=== PATIENT | female | born 1960 | race Caucasian/White ===

== ENCOUNTER → 2022-02-22 09:00 | Outpatient (BNVA) | payer OTHER, SELFPAY | PROVIDERS: PCP Internal Medicine; Referring Provider Internal Medicine; Visit Provider Podiatrist Foot & Ankle Surgery | DX: M79.672 Pain in left foot (principal) | CPT/HCPCS: 73630 ==

== ENCOUNTER 2022-04-11 11:43 | Outpatient (CLI) | payer OTHER, SELFPAY ==
--- NOTE | 2022-04-11 11:57 | FL_ITS ---
WS: [id number] Modified barium swallow, 04/11/2022 Clinical Data: Other dysphagia Comparison: None. Fluoroscopy time: 2min [id number] # of spot films: Findings: The patient showed normal oral propulsion of all material. In the hypopharynx or sometimes 2 swallows needed to clear the material. There was no aspiration or penetration. There was delayed emptying of the distal esophagus. FL/FL barium swallow modifd [id number] Impression: 1. Normal modified barium swallow. 2. Slight delayed emptying of the distal esophagus.
== END 2022-04-11 11:44 | disposition home or self-care (01) ==
LOC: RAD 11:46
PROVIDERS: PCP Internal Medicine; Visit Provider Otolaryngology
DX: R13.10 Dysphagia, unspecified (principal)
CPT/HCPCS: 74230; 92611

== ENCOUNTER 2022-07-03 12:46 | Outpatient (RCR) | payer OTHER, SELFPAY | END 2022-07-12 23:59 | disposition home or self-care (01) | LOC: SST 12:46 | PROVIDERS: PCP Internal Medicine; Visit Provider Family Medicine | DX: R13.10 Dysphagia, unspecified (principal) | CPT/HCPCS: 92526; 92610 ==

== ENCOUNTER 2022-07-04 07:54 | Outpatient (CLI) | payer OTHER, SELFPAY ==
--- NOTE | 2022-07-04 08:00 | USCV_ITS ---
Terri Booth Age: 62 Gender: F : 1960 Exam Date: 07/04/2022 08:25 Ordering Phys: Ida Grullon Technologist: Sheron Wang Exam Location: [facility] [place] Indication: PSVT, BP: 120 / 74 HR: 54 Rhythm: Sinus Technical Quality: Adequate MEASUREMENTS (Male / Female) Normal Values 2D ECHO LV Diastolic Diameter PLAX 3.7 cm 4.2 - 5.9 / 3.9 - 5.3 cm LV Systolic Diameter PLAX 2.5 cm IVS Diastolic Thickness 1.0 cm 0.6 - 1.0 / 0.6 - 0.9 cm IVS Systolic Thickness 1.2 cm LVPW Diastolic Thickness 0.5 cm 0.6 - 1.0 / 0.6 - 0.9 cm LVPW Systolic Thickness 1.2 cm LV Ejection Fraction 2D Teich 60.7 % LV Ejection Fraction MOD 2C 63.6 % LV Ejection Fraction 2C AL 63.0 % LA Diameter 2.2 cm LA Width 2.0 cm LA Height 3.9 cm RA Width 2.9 cm RA Height 3.6 cm Aorta at Sinotubular Diameter 2.6 cm IVC Diameter 1.6 cm M-MODE MV E Point Septal Separation 0.3 cm DOPPLER AV Peak Velocity 87.0 cm/s LVOT Peak Velocity 87.0 cm/s MV Peak Velocity 123.0 cm/s MV Area PHT 5.0 cm squared Mitral E to A Ratio 1.1 MV E' Velocity 45.0 cm/s Mitral E to MV E' Ratio 8.0 Mitral E to LV E' Lateral Ratio 6.7 Mitral E to LV E' Septal Ratio 10.0 TR Peak Velocity 54.0 cm/s TR Peak Gradient 1.2 mmHg Right Atrial Pressure 3.0 mmHg Pulmonary Artery Systolic Pressu 4.2 mmHg PV Peak Velocity 48.0 cm/s RV Acceleration Time 0.1 s RV Ejection Time 0.3 s RV AcT/ET 0.4 FINDINGS Left Ventricle Normal left ventricular size, systolic function and wall thickness, with no regional wall motion abnormalities. Normal left ventricular wall thickness. Normal diastolic filling pattern. Right Ventricle The right ventricle is normal in size and function. Right Atrium The right atrium is normal in size. Left Atrium The left atrium is normal in size. Mitral Valve Structurally normal mitral valve without significant stenosis or prolapse. There is no mitral regurgitation. Aortic Valve Structurally normal aortic valve without significant sclerosis or stenosis. There is no aortic regurgitation. Tricuspid Valve Structurally normal tricuspid valve without significant stenosis or regurgitation. Pulmonary artery systolic pressure is normal. Pulmonic Valve Structurally normal pulmonic valve without significant stenosis. There is no pulmonic regurgitation. Pericardium Normal pericardium without effusion. Aorta Normal ascending aorta dimension. IVC The inferior vena cava pulmonary and hepatic veins appear normal. CONCLUSIONS Normal transthoracic echocardiogram. Dr. Trip Garcia MD (Electronically Signed) Final Date: 04 July 2022 10:16 S
== END 2022-07-04 07:55 | disposition home or self-care (01) ==
LOC: RAD 07:54
PROVIDERS: PCP Family Medicine; Visit Provider Nurse Practitioner Family
DX: I47.1 Supraventricular tachycardia (principal)
CPT/HCPCS: 93306

== ENCOUNTER 2022-07-26 09:18 | Outpatient (CLI) | payer OTHER, SELFPAY ==
--- NOTE | 2022-07-26 09:30 | MM_ITS ---
WS: [id number] BILATERAL SCREENING DIGITAL TOMOSYNTHESIS MAMMOGRAM WITH CAD HISTORY: SCREENING COMPARISON: 02/01/2021 and 04/01/2019 Bilateral CC and MLO views with tomosynthesis and synthetic mammography submitted. Computer aided det ection analyzed. Breast composition: The breasts are heterogeneously dense, which may obscure small masses. No suspici ous masses, microcalcifications or architectural distortion. Biopsy clip in the posterior medial LEFT breast. MM/[place] [id number] IMPRESSION: BI-RADS: 2-Benign FOLLOW UP: 1 Year Follow-up
== END 2022-07-26 09:19 | disposition home or self-care (01) ==
PROVIDERS: PCP Family Medicine; Visit Provider Family Medicine
DX: Z12.31 Encounter for screening mammogram for malignant neoplasm of breast (principal)
CPT/HCPCS: 77063; 77067

== ENCOUNTER 2022-08-12 06:00 | Outpatient (RCR) | payer OTHER, SELFPAY | END 2022-09-11 23:59 | disposition home or self-care (01) | LOC: SST 06:00 | PROVIDERS: PCP Family Medicine; Visit Provider Family Medicine | DX: R13.10 Dysphagia, unspecified (principal) | CPT/HCPCS: 92507 ==

== ENCOUNTER 2022-09-12 14:23 | Outpatient (RCR) | payer OTHER, SELFPAY | END 2022-10-11 23:59 | disposition home or self-care (01) | LOC: SST 14:23 | PROVIDERS: PCP Family Medicine; Visit Provider Family Medicine | DX: R13.10 Dysphagia, unspecified (principal) | CPT/HCPCS: 92526 ==

== ENCOUNTER 2023-03-19 14:16 | Outpatient (CLI) | payer OTHER, SELFPAY ==
--- NOTE | 2023-03-19 14:24 | MM_ITS ---
WS: [id number] LEFT 3D TOMOSYNTHESIS DIGITAL MAMMOGRAPHY WITH CAD CLINICAL INFORMATION: TENDERNESS HISTORY: LEFT breast pain COMPARISON: July 26, 2022 TECHNIQUE: 6 views of the left breast were obtained. FINDINGS: The left breast is composed of heterogeneous fibroglandular density tissue, which can limit the detec tion of small underlying mass lesions. No suspicious abnormalities in the areas of pain. Prior LEFT b reast biopsy clip. A few tiny incidental calcifications unchanged. Ultrasound LEFT breast described b elow ULTRASOUND BREAST LEFT TECHNIQUE: Ultrasound left breast focused area of concern. CLINICAL INFORMATION: TENDERNESS FINDINGS: Ultrasound LEFT breast 1:00 to 3:00 and 4-5:00. Normal underlying parenchymal tissue. No cystic or so lid lesions. No suspicious lesions to target for biopsy. Recommend return to annual screening mammogr aphy. MM/[place] [id number] IMPRESSION: BI-RADS: 2-Benign FOLLOW UP: 1 Year Follow-up Recommend return to annual screening mammography.
== END 2023-03-19 14:17 | disposition home or self-care (01) ==
LOC: RAD 14:17
PROVIDERS: PCP Family Medicine; Visit Provider Nurse Practitioner Family
DX: N64.4 Mastodynia (principal)
CPT/HCPCS: 76642; 77061; G0279

== ENCOUNTER 2023-12-05 11:20 | Outpatient (CLI) | payer OTHER, SELFPAY ==
--- NOTE | 2023-12-05 11:26 | MM_ITS ---
WS: [id number] BILATERAL 3D TOMOSYNTHESIS DIGITAL SCREENING MAMMOGRAPHY WITH CAD CLINICAL INFORMATION: SCREENING HISTORY: Screening mammogram. No current complaints. COMPARISON: 03/19/2023 and 07/26/2022 TECHNIQUE: Bilateral CC and MLO views. FINDINGS: Scattered fibroglandular densities bilaterally. No suspicious focal mass, asymmetry, calcifications, or architectural distortion. No evidence of malignancy. Biopsy clip LEFT breast. Clustered calcificat ions central RIGHT breast are unchanged since 2019. IMPRESSION: MM/[place] [id number] BI-RADS: 2-Benign FOLLOW UP: 1 Year Follow-up Recommend return to annual screening mammography.
== END 2023-12-05 11:21 | disposition home or self-care (01) ==
LOC: RAD 11:21
PROVIDERS: PCP Family Medicine; Visit Provider Family Medicine
DX: Z12.31 Encounter for screening mammogram for malignant neoplasm of breast (principal); R92.323 Mammographic fibroglandular density, bilateral breasts; R92.1 Mammographic calcification found on diagnostic imaging of breast
CPT/HCPCS: 77063; 77067

== ENCOUNTER → 2024-10-13 14:57 | Outpatient (BNVA) | payer OTHER, SELFPAY | PROVIDERS: PCP Family Medicine; Referring Provider Internal Medicine; Visit Provider Internal Medicine Cardiovascular Disease | DX: R07.9 Chest pain, unspecified (principal) | CPT/HCPCS: 93005 ==

== ENCOUNTER 2025-01-02 14:19 | Outpatient (CLI) | payer OTHER, SELFPAY ==
--- NOTE | 2025-01-02 14:22 | XR_ITS ---
WS: [id number] SCREENING DEXA SCAN [employer] CLINICAL INFORMATION: OSTEOPOROSIS COMPARISON: None. FINDINGS: The L1-L4 bone mineral density measures 0.843 g/cm2. This corresponds to a T score score of -2.8 and Z score of -0.9. Left femoral neck bone mineral density measures 0.681 g/cm2. This corresponds to a T score of -2.6 and Z score of -1.1. Right femoral neck bone mineral density measures 0.670 g/cm2. This corresponds to a T score -2.7of and Z score of -1.2. Mean femoral neck bone mineral density measures 0.676 g/cm2. This corresponds to a T score of -2.6 and Z score of -1.2. XR/XR DEXA axial skeleton* [id number] IMPRESSION: Osteoporosis lumbar spine. Osteoporosis femoral necks. Patient's FRAX calculated 10 year probability for major osteoporotic fracture i s three 21.6 % and osteoporotic hip fracture is 5.3%.
== END 2025-01-02 14:20 | disposition home or self-care (01) ==
LOC: RAD 14:20
PROVIDERS: PCP Family Medicine; Visit Provider Internal Medicine
DX: Z13.820 Encounter for screening for osteoporosis (principal); M81.0 Age-related osteoporosis without current pathological fracture
CPT/HCPCS: 77080

== ENCOUNTER 2025-01-06 12:42 | Outpatient (CLI) | payer OTHER, SELFPAY ==
--- NOTE | 2025-01-06 12:50 | XRR_ITS ---
PROCEDURE INFORMATION: Exam: XR Right Knee Exam date and time: 01/06/2025 12:57 PM Age: 64 years old Clinical indication: Chronic right medial knee pain, worsening in last 2-3 wks; Additional info: Right knee pain TECHNIQUE: Imaging protocol: Radiologic exam of the right knee. Views: 1 or 2 views. COMPARISON: No relevant prior studies available. FINDINGS: Bones/joints: Normal. Soft tissues: Normal. XR/XR knee RT 1-2V [id number] IMPRESSION: No acute findings.
== END 2025-01-06 12:43 | disposition home or self-care (01) ==
PROVIDERS: PCP Family Medicine; Visit Provider Internal Medicine
DX: M25.561 Pain in right knee (principal)
CPT/HCPCS: 73560

== ENCOUNTER 2025-02-17 12:23 | Outpatient (RCR) | payer MEDICARE, SELFPAY | END 2025-03-11 23:59 | disposition home or self-care (01) | LOC: SPT 12:23 | PROVIDERS: Visit Provider Internal Medicine | DX: M25.561 Pain in right knee (principal) | CPT/HCPCS: 97110; 97161 ==

== ENCOUNTER 2025-03-13 12:44 | Outpatient (CLI) | payer MEDICARE, SELFPAY ==
--- NOTE | 2025-03-13 12:45 | USCV_ITS ---
Terri Booth Age: 64 Gender: F : 1960 Exam Date: 03/13/2025 12:52 Ordering Phys: Min De La Paz M.D ([email or web address]) Technologist: John Jones Exam Location: [facility] [place] Indication: chest pain, sob BP: 112 / 60 HR: 56 Rhythm: Sinus Technical Quality: Adequate MEASUREMENTS (Male / Female) Normal Values 2D ECHO LV Diastolic Diameter PLAX 4.0 cm 4.2 - 5.9 / 3.9 - 5.3 cm IVS Diastolic Thickness 0.8 cm 0.6 - 1.0 / 0.6 - 0.9 cm IVS Systolic Thickness 1.4 cm LVPW Diastolic Thickness 0.6 cm 0.6 - 1.0 / 0.6 - 0.9 cm LVPW Systolic Thickness 1.0 cm LVOT Diameter 2.0 cm LV Ejection Fraction 2D Teich 63.5 % LV Ejection Fraction MOD 4C 62.0 % LV Ejection Fraction MOD 2C 73.6 % LV Ejection Fraction 2C AL 73.7 % LA Diameter 2.6 cm RA Systolic Volume 4C AL 21.1 ml RA Systolic Volume 4C MOD 19.6 ml LA Sys Volume AL 17.9 cm cubed LA Sys Volume Index AL 11.5 cm cubed/m squared Aorta at Sinotubular Diameter 2.3 cm IVC Diameter 1.5 cm M-MODE LA Ao Ratio MM 1.6 AV Cusp Separation MM 0.9 cm DOPPLER AV Peak Velocity 114.0 cm/s LVOT Peak Velocity 70.0 cm/s AV Area Cont Eq vti 1.5 cm squared AV Area Cont Eq pk 1.8 cm squared MV Peak Velocity 111.0 cm/s MV Area PHT 3.5 cm squared Mitral E to A Ratio 1.2 TR Peak Velocity 149.0 cm/s TR Peak Gradient 8.9 mmHg TV Peak E Velocity 91.0 cm/s PV Peak Velocity 88.0 cm/s FINDINGS Left Ventricle Left ventricle is normal in size. LV systolic function is normal with EF of 60-65%. No regional wall motion abnormalities. Right Ventricle Normal in size and function Right Atrium Normal in size Left Atrium Normal in size Mitral Valve Structurally normal mitral valve. Mild mitral regurgitation. Aortic Valve Structurally normal aortic valve. No significant stenosis or regurgitation. Tricuspid Valve Insufficient TR jet to calculate RVSP Pulmonic Valve Not well visualized Pericardium Normal Aorta Normal in size IVC Appears to be normal CONCLUSIONS LV systolic function is normal with EF of 60-65% Mild mitral regurgitation Compared to prior echcardiogram from 2021, no significant changes are seen Min De La Paz MD (Electronically Signed) Final Date: 19 Mar 2025 10:50 S
== END 2025-03-13 12:45 | disposition home or self-care (01) ==
PROVIDERS: PCP Internal Medicine; Visit Provider Internal Medicine
DX: R07.9 Chest pain, unspecified (principal); R06.02 Shortness of breath; I34.0 Nonrheumatic mitral (valve) insufficiency
CPT/HCPCS: 93306

== ENCOUNTER 2025-04-07 14:49 | Outpatient (CLI) | payer MEDICARE, SELFPAY | END 2025-04-07 14:50 | LOC: DERMACUTE 04-08 06:21 | PROVIDERS: PCP Internal Medicine; Visit Provider Nurse Practitioner Family | DX: L82.1 Other seborrheic keratosis (principal); D22.5 Melanocytic nevi of trunk; L57.8 Other skin changes due to chronic exposure to nonionizing radiation; L82.0 Inflamed seborrheic keratosis; L29.89 Other pruritus; L53.8 Other specified erythematous conditions; R20.8 Other disturbances of skin sensation; Z78.9 Other specified health status; D48.5 Neoplasm of uncertain behavior of skin | CPT/HCPCS: 11102; 17110; 99213 ==

== ENCOUNTER 2025-04-14 11:59 | Outpatient (CLI) | payer MEDICARE, SELFPAY ==
--- NOTE | 2025-04-14 12:04 | MR_ITS ---
WS: [id number] MRI RIGHT KNEE HISTORY: RIGHT MEDIAL KNEE PAIN COMPARISON: Radiograph 01/06/2025 Anterior cruciate ligament: Intact. Posterior cruciate ligament: Intact. Medial collateral ligament: Intact. Posterior lateral corner structures: Intact. Medial menisci: There is fluid along the superior aspect posterior horn medial meniscus. No meniscal tear identified. Lateral meniscus: Intact. Normal signal, size and shape. Extensor mechanism: Distal quadriceps tendon and patellar tendons are intact. Fluid and soft tissue: No joint effusion. Very small Gary's cyst. Osseous and articular structures: Patellofemoral compartment: Normal. Medial compartment: Mild narrowing of the medial compartment. Mild fissuring of the cartilage. No full-thickness defect or marrow edema. Lateral compartment: No significant narrowing. Cartilage is intact. MR/MR knee RT wo con* [id number] IMPRESSION: 1. No ACL tear. 2. Increased fluid along the superior aspect of the posterior horn medial meni scus towards the intercondylar notch. No tear identified within the meniscus. 3. Gary's cyst. 4. Mild narrowing of the medial compartment and fissuring of the cartilage.
== END 2025-04-14 12:00 | disposition home or self-care (01) ==
PROVIDERS: PCP Internal Medicine; Visit Provider Family Medicine
DX: M17.11 Unilateral primary osteoarthritis, right knee (principal); M71.21 Synovial cyst of popliteal space [Baker], right knee; R93.6 Abnormal findings on diagnostic imaging of limbs
CPT/HCPCS: 11102; 17110; 73721; 99213

== ENCOUNTER → 2025-04-20 14:08 | Outpatient (BNVA) | payer MEDICARE, SELFPAY | PROVIDERS: PCP Internal Medicine; Visit Provider Internal Medicine Cardiovascular Disease | DX: I47.10 Supraventricular tachycardia, unspecified (principal); R09.89 Other specified symptoms and signs involving the circulatory and respiratory systems; I34.0 Nonrheumatic mitral (valve) insufficiency; I10 Essential (primary) hypertension | CPT/HCPCS: 99214 ==

== ENCOUNTER 2025-04-24 16:18 | Outpatient (CLI) | payer MEDICARE, SELFPAY ==
--- NOTE | 2025-04-24 16:30 | USCV_ITS ---
Terri oBoth Age: 65 Gender: F : 1960 Exam Date: 04/24/2025 16:40 Ordering Phys: Melissa Brown MD ([email or web address]) Technologist: R Exam Location: [facility] [place] [facility] [place] Indication: bruit Risk Factors: Previous Vascular Surgery: Right Brachial BP: / Left Brachial BP: / Right Left Velocity (cm/s) Spectral Plaque Velocity (cm/s) Spectral Plaque Syst/Diast Broadening Syst/Diast Broadening 90.60/ 27.10 Prox CCA 76.70 / 26.50 79.30/ 29.10 Mid CCA 69.80 / 22.50 68.40/ 20.30 Distal CCA 71.00 / 26.20 100.80/30.10 Prox ICA 98.80 / 29.20 98.60/ 31.80 Mid ICA 111.10/ 33.60 122.90/37.70 None Distal ICA 101.40/ 40.50 69.10 Wilber ECA 77.90 1.50 ICA/CCA 1.40 Antegrade Vertebral Antegrade 56.20/ 15.80 cm/s 58.60/ 20.20 cm/s Tri Subclavian Bi 86.30 108.0 0 CONCLUSIONS Right ICA stenosis <50%. Mild atheromatous plaque right carotid bulb/ICA. Left ICA stenosis <50%. Mild atheromatous plaque left carotid bulb/ICA. Intimal thickening in the common carotid arteries and internal carotid arteries bilaterally. Normal antegrade Doppler flow noted in the right vertebral artery. Normal antegrade Doppler flow noted in the left vertebral artery. Donato Crump MD (Electronically Signed) Final Date: 24 April 2025 19:03 S
== END 2025-04-24 16:19 | disposition home or self-care (01) ==
LOC: RAD 16:19
PROVIDERS: PCP Internal Medicine; Visit Provider Internal Medicine Cardiovascular Disease
DX: I65.23 Occlusion and stenosis of bilateral carotid arteries (principal); R09.89 Other specified symptoms and signs involving the circulatory and respiratory systems
CPT/HCPCS: 93880

== ENCOUNTER → 2025-05-26 14:03 | Outpatient (BNVA) | payer MEDICARE, SELFPAY | PROVIDERS: PCP Family Medicine; Visit Provider Student in an Organized Health Care Education/Training Program | DX: M25.561 Pain in right knee (principal); M17.11 Unilateral primary osteoarthritis, right knee | CPT/HCPCS: 73560; 73565 ==

== ENCOUNTER 2025-05-26 15:37 | Outpatient (CLI) | payer MEDICARE, SELFPAY | END 2025-05-26 15:38 | disposition home or self-care (01) | LOC: SPT 15:38 | PROVIDERS: PCP Family Medicine; Visit Provider Student in an Organized Health Care Education/Training Program | DX: Z46.89 Encounter for fitting and adjustment of other specified devices (principal); M17.11 Unilateral primary osteoarthritis, right knee | CPT/HCPCS: L1851 ==

== ENCOUNTER 2025-07-15 14:34 | Outpatient (CLI) | payer MEDICARE, SELFPAY ==
--- NOTE | 2025-07-15 14:39 | MM_ITS ---
WS: [id number] BILATERAL 3D TOMOSYNTHESIS DIGITAL SCREENING MAMMOGRAPHY WITH CAD CLINICAL INFORMATION: SCREENING HISTORY: Screening mammogram. No current complaints. COMPARISON: 2023 TECHNIQUE: Bilateral CC and MLO views. FINDINGS: The breasts are composed of heterogeneous fibroglandular density tissue, which can limit the detection of small underlying mass lesions. No suspicious mass, asymmetry, calcifications, or architectural distortion. No evidence of malignancy. Biopsy clip LEFT breast. Stable clustered calcifications RIGHT breast. MM/MM [facility] tomosynthesis [id number] IMPRESSION: DENSITY: The breasts are heterogeneously dense, which may obscure small masses. BI-RADS: 2 - Benign FOLLOW UP: 1 Year Follow-up Recommend return to annual screening mammography.
== END 2025-07-15 14:35 | disposition home or self-care (01) ==
LOC: RAD 14:35
PROVIDERS: PCP Family Medicine; Visit Provider Family Medicine
DX: Z12.31 Encounter for screening mammogram for malignant neoplasm of breast (principal); R92.333 Mammographic heterogeneous density, bilateral breasts; R92.1 Mammographic calcification found on diagnostic imaging of breast; Z96.89 Presence of other specified functional implants
CPT/HCPCS: 77063; 77067

== ENCOUNTER 2025-07-17 08:30 | Outpatient (CLI) | payer MEDICARE, SELFPAY ==
--- NOTE | 2025-07-17 08:41 | MR_ITS ---
WS: [id number] MRI HEAD WITH CONTRAST TECHNIQUE: Sagittal T1, T2 axial, T2 axial FLAIR, axial susceptibility weighted imaging, axial diffusion weighted images, and coronal T2 images were obtained. Pre and post-T1 axial and post T1 coronal images. ADC and FSPGR images. CLINICAL INFORMATION: MIGRAINE W/O STATUS MIGRAINOSUS COMPARISON: None. FINDINGS: No evidence of restricted diffusion to suggest acute ischemia. Mild small vessel changes. Moderate parenchymal volume loss. No hemosiderin. Normal posterior fossa. Normal vascular flow voids at the skull base. No extra-axial fluid collections. No evidence of mass or mass effect. Paranasal sinuses and mastoid air cells are well aerated. Mild mucosal thickening in the ethmoid air cells. Normal posterior nasopharynx. Normal optic chiasm and pituitary infundibulum. Temporal lobes and hippocampal formations are normal in appearance. No abnormal gadolinium enhancement. MR/MR head wo/w con [id number] IMPRESSION: 1. No evidence of restricted diffusion to suggest acute ischemia. 2. Mild small vessel changes. Moderate parenchymal volume loss. 3. No hemosiderin. 4. No abnormal gadolinium enhancement. 5. No other acute findings.
[2025-07-17] MEDS: gadobenate dimeglumine 20 mL vial 10 ML IV (09:44)
== END 2025-07-17 08:31 | disposition home or self-care (01) ==
LOC: RAD 08:35
PROVIDERS: PCP Family Medicine; Visit Provider Family Medicine
DX: G43.009 Migraine without aura, not intractable, without status migrainosus (principal); G31.89 Other specified degenerative diseases of nervous system; I67.82 Cerebral ischemia; J34.89 Other specified disorders of nose and nasal sinuses
CPT/HCPCS: 70553

== ENCOUNTER 2025-09-23 17:39 | Observation (INO) | payer MEDICARE, SELFPAY ==
[2025-09-23] VITALS (10 sets, daily range): BP systolic 133–176; BP diastolic 40–82; PULSE 59–80; RESP 10–19; TEMP 36.3; O2SAT 97–100; BMI 23.7
--- NOTE | 2025-09-23 17:41 | ECG_ITS ---
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 Measurements Intervals [place] Rate: 64 P: 77 CT: 190 QRS: 80 QRSD: 87 T: 59 QT: 403 QTc: 418 Interpretive Statements SINUS RHYTHM NONSPECIFIC ST & T-WAVE ABNORMALITY Compared to ECG 10/13/2024 15:11:05 Sinus bradycardia no longer present T-wave abnormality still present Electronically Signed On 09-23-2025 20:01:00 CHIEF BUSINESS OFFICER by Arias Mcniar M.D. [email or web address]
--- NOTE | 2025-09-23 17:41 | XRR_ITS ---
PROCEDURE INFORMATION: Exam: XR Chest Exam date and time: 09/23/2025 5:58 PM Age: 65 years old Clinical indication: Pain; Chest pressure; Additional info: Chest pain TECHNIQUE: Imaging protocol: Radiologic exam of the chest. Views: 1 view. COMPARISON: No relevant prior studies available. FINDINGS: Lungs: No pulmonary consolidation. Mild pulmonary hyperinflation. Pleural spaces: No pleural effusion or pneumothorax. Heart/Mediastinum: Heart size is within normal limits. Bones/joints: No acute osseous abnormalities are seen. XR/XR chest 1V portable [id number] IMPRESSION: No acute cardiopulmonary disease.
--- OUTSIDE RECORDS SUMMARY | 2025-09-23 17:44 | XMS_ITS | Encounter Summary ---
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
--- OUTSIDE RECORDS SUMMARY | 2025-09-23 17:44 | XMS_ITS | Encounter Summary ---
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
--- OUTSIDE RECORDS SUMMARY | 2025-09-23 17:44 | XMS_ITS | Encounter Summary ---
Author Organization [employer] [facility] Address [address] [place] [address] Care Team Providers Care Application Development Intern Name Role Phone Carlee Rossi MD Primary Care Provid er Encounter Details Date Type Department Care Team (Late st Contact Info) Description 06/13/[address] 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
--- OUTSIDE RECORDS SUMMARY | 2025-09-23 17:44 | XMS_ITS | Encounter Summary ---
Author Organization [facility] Address [address] [place] [address] Care Team Providers Care Spectacle Truer Name Role Phone Carlee Rossi MD Primary Care Provid er Encounter Details Date Type Department Care Team (Latest Contact Info) Description 07/26/2005 Outpatient Historical [facility] [address] [place] [id number] Jesús Oneal MD NO ADDRESS ON FILE PREOP EXAM OTHER SPECIFIED (Primary Dx) Social History Tobacco Use Types Packs/Day Years Used Date Smoking Tobacco: Never Assessed Comments Unknown Sex and Gender Information Value Date Recorded Sex Assigned at Not on file 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 Gender Identity Not on file Sexual Orientation Not on file documented as of this encounter Plan of Treatment Not on file documented as of this encounter Procedures Procedure Name Priority Date/Time Associated Diagnosis Comments CBC WITHOUT DIFFERENTIAL Routine 07/26/2005 12:59 PM CDT documented in this encounter Results * (ABNORMAL) CBC WITHOUT DIFFERENTIAL (07/26/2005 12:59 PM CDT) WBC 5.5 4.5 - 11.0 K/ul INTERFACE SYSTEM RBC 4.01(L) 4.20 - 5.40 Mil/ul INTERFACE SYSTEM HEMOGLOBIN 11.5(L) 12.0 - 16.0 g/dL INTERFACE SYSTEM HEMATOCRIT 35.5(L) 36.0 - 46.0 % INTERFACE SYSTEM MCV 88.5 84.0 - 103.0 Fl INTERFACE SYSTEM MCH 28.7 27.0 - 34.0 pg INTERFACE SYSTEM MCHC 32.4 30.0 - 35.0 g/dL INTERFACE SYSTEM RDW 12.7 11.0 - 14.5 % INTERFACE SYSTEM PLATELETS 286 140 - 440 K/ul INTERFACE SYSTEM MPV 10.8 8.9 - 12.8 Fl INTERFACE SYSTEM NEUTROPHILS 67.1 42.2 - 75.2 % INTERFACE SYSTEM LYMPHOCYTES 25.5 24.0 - 44.0 % INTERFACE SYSTEM MONOCYTES 5.5 2.0 - 10.0 % INTERFACE SYSTEM EOSINOPHILS 1.5 0.0 - 7.0 % INTERFACE SYSTEM BASOPHILS 0.2 0.0 - 1.0 % INTERFACE SYSTEM NEUTROPHIL ABSOLUTE 3.7 2.0 - 8.0 K/uL INTERFACE SYSTEM LYMPHOCYTE ABSOLUTE 1.4 1.2 - 4.0 K/ul INTERFACE SYSTEM MONOCYTE ABSOLUTE 0.3 0.1 - 0.6 K/ul INTERFACE SYSTEM EOSINOPHIL ABSOLUTE 0.1 0.0 - 0.7 K/ul INTERFACE SYSTEM BASOPHILS ABSOLUTE 0.0 0.0 - 0.2 K/ul INTERFACE SYSTEM 07/26/2005 12:5 9 PM CDT us Jesús Oneal MD HEMATOLOGY ORDERABLES Final Re sult INTERFACE SYSTEM Refer to clinic/hospital department documented in this encounter Visit Diagnoses Diagnosis Other specified pre-operative examination- Primary documented in this encounter Care Teams Spectacle Truer Relationship Specialty Start Date End Date Carlee Rossi MD PCP - General 11/17/05 documented as of this encounter
--- OUTSIDE RECORDS SUMMARY | 2025-09-23 17:44 | XMS_ITS | Encounter Summary ---
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
--- OUTSIDE RECORDS SUMMARY | 2025-09-23 17:44 | XMS_ITS | Encounter Summary ---
Author Organization [employer] 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
--- OUTSIDE RECORDS SUMMARY | 2025-09-23 17:44 | XMS_ITS | Encounter Summary ---
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
--- OUTSIDE RECORDS SUMMARY | 2025-09-23 17:44 | XMS_ITS | Encounter Summary ---
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
--- OUTSIDE RECORDS SUMMARY | 2025-09-23 17:44 | XMS_ITS | Encounter Summary ---
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
--- OUTSIDE RECORDS SUMMARY | 2025-09-23 17:44 | XMS_ITS | Encounter Summary ---
Author Organization [facility] Address [address] [place] [address] Care Team Providers Care Mold Builder Name Role Phone Carlee Rossi MD Primary Care Provid er Encounter Details Date Type Department Care Team (Latest Contact Info) Description 07/07/2005 Outpatient Historical [facility] Neurology [address], [address] [place] [address] Wyatt Diaz MD NO ADDRESS ON FILE MEMORY LOSS (Primary Dx) Social History Tobacco Use Types Packs/Day Years Used Date Smoking Tobacco: Never Assessed Comments Unknown Sex and Gender Information Value Date Recorded Sex Assigned at Not on file 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
--- OUTSIDE RECORDS SUMMARY | 2025-09-23 17:44 | XMS_ITS | Encounter Summary ---
Author Organization [facility] Address [address] [place] [address] Care Team Providers Care Performance Improvement Analyst Name Role Phone Carlee Rossi MD Primary Care Provid er Encounter Details Date Type Department Care Team (Latest Contact Info) Description 07/05/2005 Outpatient Historical [facility] Internal Medicine- [place] [address] [place] [phone] Carlee Rossi MD [address] [place] [address] CRAMP IN LIMB (Primary Dx); PALPITATIONS; URTICARIA NOS Social History Tobacco Use Types Packs/Day Years Used Date Smoking Tobacco: Never Assessed Comments Unknown Sex and Gender Information Value Date Recorded Sex Assigned at Not on file 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
--- OUTSIDE RECORDS SUMMARY | 2025-09-23 17:44 | XMS_ITS | Encounter Summary ---
Author Organization [facility] Address [address] [place] [address] Care Team Providers Care Sock Knitter Name Role Phone Carlee Rossi MD Primary Care Provid er Encounter Details Date Type Department Care Team (Latest Contact Info) Description 08/28/2006 Outpatient Historical [facility] Orthopedics- 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
--- OUTSIDE RECORDS SUMMARY | 2025-09-23 17:44 | XMS_ITS | Encounter Summary ---
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
--- OUTSIDE RECORDS SUMMARY | 2025-09-23 17:44 | XMS_ITS | Encounter Summary ---
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
--- OUTSIDE RECORDS SUMMARY | 2025-09-23 17:44 | XMS_ITS | Encounter Summary ---
Author Organization [facility] Address [address] [place] [address] Care Team Providers Care Service Counselor Name Role Phone Carlee Rossi MD Primary Care Provid er Encounter Details Date Type Department Care Team (Late st Contact Info) Description 09/17/2006 Outpatient Historical [facility] [address] [address] Sheron Navarrete MD NO ADDRESS ON FILE Other Screening Mammogram (Primary Dx) Social History Tobacco Use Types Packs/Day Years Used Date Smoking Tobacco: Never Assessed Comments Unknown Sex and Gender Information Value Date Recorded Sex Assigned at Not on file 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
--- OUTSIDE RECORDS SUMMARY | 2025-09-23 17:44 | XMS_ITS | Encounter Summary ---
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
--- OUTSIDE RECORDS SUMMARY | 2025-09-23 17:44 | XMS_ITS | Encounter Summary ---
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
--- OUTSIDE RECORDS SUMMARY | 2025-09-23 17:44 | XMS_ITS | Encounter Summary ---
Author Organization [employer] [facility] Address [address] [place] [address] Care Team Providers Care Sql Bi Developer Name Role Phone Carlee Rossi MD Primary Care Provid er Encounter Details Date Type Department Care Team (Latest Contact Info) Description 09/17/2006 Outpatient [facility] Breast Center [facility] [address] [place] [address] Carlee Rossi MD [address] [place] [address] Other Screening Mammogram (Primary Dx) Social History Tobacco Use Types Packs/Day Years Used Date Smoking Tobacco: Never Assessed Comments Unknown Sex and Gender Information Value Date Recorded Sex Assigned at Not on file 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
--- OUTSIDE RECORDS SUMMARY | 2025-09-23 17:44 | XMS_ITS | Encounter Summary ---
Author Organization [facility] Address [address] [place] [address] Care Team Providers Care Top Icer Name Role Phone Carlee Rossi MD Primary Care Provid er Encounter Details Date Type Department Care Team (Latest Contact Info) Description 08/01/2005 Outpatient Historical [facility] Operating [address] [place] [phone] Jesús Oneal MD NO ADDRESS ON FILE ADHESIVE CAPSULIT SHLDER (Primary Dx) Social History Tobacco Use Types Packs/Day Years Used Date Smoking Tobacco: Never Assessed Comments Unknown Sex and Gender Information Value Date Recorded Sex Assigned at Not on file 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
--- OUTSIDE RECORDS SUMMARY | 2025-09-23 17:44 | XMS_ITS | Encounter Summary ---
Author Organization [facility] Address [address] [place] [address] Care Team Providers Care Mds Manager Name Role Phone Carlee Rossi MD Primary Care Provid er Encounter Details Date Type Department Care Team (Latest Contact Info) Description 07/07/2005 Outpatient Historical [facility] [place] [address] [place] [address] Carlee Rossi MD [address] [place] [address] SCREENING MAMM-MAILG NEOPL NEC (Primary Dx) Social History Tobacco Use Types Packs/Day Years Used Date Smoking Tobacco: Never Assessed Comments Unknown Sex and Gender Information Value Date Recorded Sex Assigned at Not on file 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
--- OUTSIDE RECORDS SUMMARY | 2025-09-23 17:44 | XMS_ITS | Encounter Summary ---
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
--- OUTSIDE RECORDS SUMMARY | 2025-09-23 17:44 | XMS_ITS | Encounter Summary ---
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
--- OUTSIDE RECORDS SUMMARY | 2025-09-23 17:44 | XMS_ITS | Encounter Summary ---
Author Organization [facility] Address [address] [place] [address] Care Team Providers Care Fretted String Instrument Repairer Name Role Phone Carlee Rossi MD Primary Care Provid er Encounter Details Date Type Department Care Team (Late st Contact Info) Description 09/26/2006 Outpatient Historical [facility] Physical Therapy [address] [place] [phone] Jesús Oneal MD NO ADDRESS ON FILE Social History Tobacco Use Types Packs/Day Years Used Date Smoking Tobacco: Never Assessed Comments Unknown Sex and Gender Information Value Date Recorded Sex Assigned at Not on file 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
--- OUTSIDE RECORDS SUMMARY | 2025-09-23 17:44 | XMS_ITS | Encounter Summary ---
Author Organization [facility] Address [address] [place] [address] Care Team Providers Care Lockstitch Topstitcher Name Role Phone Carlee Rossi MD Primary Care Provid er Encounter Details Date Type Department Care Team (Latest Contact Info) Description 06/13/[address] 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
--- OUTSIDE RECORDS SUMMARY | 2025-09-23 17:44 | XMS_ITS | Encounter Summary ---
Author Organization [facility] Address [address] [place] [address] Care Team Providers Care Signal Apprentice Name Role Phone Carlee Rossi MD Primary Care Provid er Encounter Details Date Type Department Care Team (Latest Contact Info) Description 07/14/2005 Outpatient Historical [facility] Physical Therapy [address] [place] [address] [place] [phone] Jesús Oneal MD NO ADDRESS ON FILE ADHESIVE CAPSULIT SHLDER (Primary Dx) Social History Tobacco Use Types Packs/Day Years Used Date Smoking Tobacco: Never Assessed Comments Unknown Sex and Gender Information Value Date Recorded Sex Assigned at Not on file 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
--- OUTSIDE RECORDS SUMMARY | 2025-09-23 17:44 | XMS_ITS | Encounter Summary ---
Author Organization [employer] 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
--- OUTSIDE RECORDS SUMMARY | 2025-09-23 17:44 | XMS_ITS | Encounter Summary ---
Author Organization [facility] Address [address] Attn: Epic Prelude ADT [place] [address] Care Team Providers Care Motion Graphics Artist Name Role Phone Carlee Rossi MD Primary Care Provid er Encounter Details Date Type Department Care Team (Late st Contact Info) Description 06/13/2005 Outpatient Historical Wyatt Diaz MD NO ADDRESS ON FILE CONVULSIONS, OTHER (CMS/HCC) (Primary Dx) Social History Tobacco Use Types Packs/Day Years Used Date Smoking Tobacco: Never Assessed Comments Unknown Sex and Gender Information Value Date Recorded Sex Assigned at Not on file Legal Sex Female 3:43 AM DIRECTOR SEARCH Gender Identity Not on file Sexual Orientation Not on file documented as of this encounter Plan of Treatment Not on file documented as of this encounter Visit Diagnoses Diagnosis Other convulsions- Primary documented in this encounter Care Teams Motion Graphics Artist Relationship Specialty Start Date End Date Carlee Rossi MD PCP - General 11/17/05 documented as of this encounter
--- OUTSIDE RECORDS SUMMARY | 2025-09-23 17:44 | XMS_ITS | Encounter Summary ---
Author Organization [facility] Address [address] [place] [address] Care Team Providers Care Senior Project Architect Name Role Phone Carlee Rossi MD Primary Care Provid er Encounter Details Date Type Department Care Team (Latest Contact Info) Description 06/16/2005 Outpatient Historical [facility] Internal Medicine- [place] [address] [place] [address] Carlee Rossi MD [address] [place] [address] ABNORMAL FIND-BODY STRUCT NEC (Primary Dx); CONVULSIONS, OTHER (CMS/HCC); VOICE DISTURBANCE NEC; Adhesive capsulit shlder Social History Tobacco Use Types Packs/Day Years Used Date Smoking Tobacco: Never Assessed Comments Unknown Sex and Gender Information Value Date Recorded Sex Assigned at Not on file Legal Sex Female 3:43 AM NUT CRACKER Gender Identity Not on file Sexual Orientation Not on file documented as of this encounter Plan of Treatment Not on file documented as of this encounter Visit Diagnoses Diagnosis Nonspecific abnormal findings on radiological and other examination of other site of body- Primary Other convulsions Other voice and resonance disorders Adhesive capsulit shlder Adhesive capsulitis of shoulder documented in this encounter Care Teams Senior Project Architect Relationship Specialty Start Date End Date Carlee Rossi MD PCP - General 11/17/05 documented as of this encounter
--- OUTSIDE RECORDS SUMMARY | 2025-09-23 17:44 | XMS_ITS | Encounter Summary ---
Author Organization [employer] [facility] Address [address] [place] [address] Care Team Providers Care Leather Colorer Name Role Phone Carlee Rossi MD Primary Care Provid er Encounter Details Date Type Department Care Team (Late st Contact Info) Description 06/13/2005 Outpatient Historical [facility] Social History Tobacco Use Types Packs/Day Years Used Date Smoking Tobacco: Never Assessed Comments Unknown Sex and Gender Information Value Date Recorded Sex Assigned at Not on file Legal Sex Female 3:43 AM TEST PILOT Gender Identity Not on file Sexual Orientation Not on file documented as of this encounter Plan of Treatment Not on file documented as of this encounter Visit Diagnoses Not on filedocumented in this encounter Care Teams Leather Colorer Relationship Specialty Start Date End Date Carlee Rossi MD PCP - General 11/17/05 documented as of this encounter
--- OUTSIDE RECORDS SUMMARY | 2025-09-23 17:44 | XMS_ITS | Encounter Summary ---
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
--- OUTSIDE RECORDS SUMMARY | 2025-09-23 17:44 | XMS_ITS | Encounter Summary ---
Author Organization [facility] Address [address] [place] [address] Care Team Providers Care Brimming Machine Operator Name Role Phone Carlee Rossi MD Primary Care Provid er Encounter Details Date Type Department Care Team (Latest Contact Info) Description 07/24/2006 Outpatient Historical [facility] Orthopedics- [address] [place] [address] Jesús Oneal MD NO ADDRESS ON FILE Other Affections of Shoulder Region, not Elsewhere Classified (Primary Dx); Loc Osteoarth NOS-Shlder Social History Tobacco Use Types Packs/Day Years Used Date Smoking Tobacco: Never Assessed Comments Unknown Sex and Gender Information Value Date Recorded Sex Assigned at Not on file Legal Sex Female 3:43 AM EQUIPMENT OR MACHINERY CLEANER Gender Identity Not on file Sexual Orientation Not on file documented as of this encounter Plan of Treatment Not on file documented as of this encounter Visit Diagnoses Diagnosis Other affections of shoulder region, not elsewhere classified- Primary Localized osteoarthrosis not specified whether primary or secondary, shoulder region documented in this encounter Care Teams Brimming Machine Operator Relationship Specialty Start Date End Date Carlee Rossi MD PCP - General 11/17/05 documented as of this encounter
--- OUTSIDE RECORDS SUMMARY | 2025-09-23 17:44 | XMS_ITS | Encounter Summary ---
Author Organization [facility] Address [address] [place] [address] Care Team Providers Care Electrogalvanizing Machine Operator Name Role Phone Carlee Rossi MD Primary Care Provid er Encounter Details Date Type Department Care Team (Late st Contact Info) Description 08/26/2006 Outpatient Historical [facility] Physical Therapy [address] [place] [phone] Jesús Oneal MD NO ADDRESS ON FILE Social History Tobacco Use Types Packs/Day Years Used Date Smoking Tobacco: Never Assessed Comments Unknown Sex and Gender Information Value Date Recorded Sex Assigned at Not on file Legal Sex Female 3:43 AM MENTAL HEALTH AIDE Gender Identity Not on file Sexual Orientation Not on file documented as of this encounter Plan of Treatment Not on file documented as of this encounter Visit Diagnoses Not on filedocumented in this encounter Care Teams Electrogalvanizing Machine Operator Relationship Specialty Start Date End Date Carlee Rossi MD PCP - General 11/17/05 documented as of this encounter
--- OUTSIDE RECORDS SUMMARY | 2025-09-23 17:44 | XMS_ITS | Encounter Summary ---
Author Organization [facility] Address [address] [place] [address] Care Team Providers Care Product Development Coordinator Name Role Phone Carlee Rossi MD Primary Care Provid er Encounter Details Date Type Department Care Team (Latest Contact Info) Description 05/31/2005 Outpatient Historical [facility] Imaging Services-[facility] [place] [address] [place] [address] Norma Eddy MD [address] [place] [address] VOICE DISTURBANCE NEC (Primary Dx) Social History Tobacco Use Types Packs/Day Years Used Date Smoking Tobacco: Never Assessed Comments Unknown Sex and Gender Information Value Date Recorded Sex Assigned at Not on file Legal Sex Female 3:43 AM CARPENTER APPRENTICE Gender Identity Not on file Sexual Orientation Not on file documented as of this encounter Plan of Treatment Not on file documented as of this encounter Visit Diagnoses Diagnosis Other voice and resonance disorders- Primary documented in this encounter Care Teams Product Development Coordinator Relationship Specialty Start Date End Date Carlee Rossi MD PCP - General 11/17/05 documented as of this encounter
--- OUTSIDE RECORDS SUMMARY | 2025-09-23 17:44 | XMS_ITS | Encounter Summary ---
Author Organization [employer] Address [address] [place] [address] Care Team Providers Care Indirect Sales Exec Name Role Phone Carlee Rossi MD Primary Care Provid er Encounter Details Date Type Department Care Team (Late st Contact Info) Description 06/14/2005 Outpatient Historical [facility] Social History Tobacco Use Types Packs/Day Years Used Date Smoking Tobacco: Never Assessed Comments Unknown Sex and Gender Information Value Date Recorded Sex Assigned at Not on file Legal Sex Female 3:43 AM POLICE OR PATROL PARK OFFICER Gender Identity Not on file Sexual Orientation Not on file documented as of this encounter Plan of Treatment Not on file documented as of this encounter Visit Diagnoses Not on filedocumented in this encounter Care Teams Indirect Sales Exec Relationship Specialty Start Date End Date Carlee Rossi MD PCP - General 11/17/05 documented as of this encounter
--- OUTSIDE RECORDS SUMMARY | 2025-09-23 17:44 | XMS_ITS | Encounter Summary ---
Author Organization [facility] Address [address] [place] [address] Care Team Providers Care Forge Shop Supervisor Name Role Phone Carlee Rossi MD Primary Care Provid er Encounter Details Date Type Department Care Team (Latest Contact Info) Description 07/05/2005 Outpatient Historical [facility] Orthopedics- [address] [place] [address] Jesús Oneal MD NO ADDRESS ON FILE Adhesive capsulit shlder (Primary Dx) Social History Tobacco Use Types Packs/Day Years Used Date Smoking Tobacco: Never Assessed Comments Unknown Sex and Gender Information Value Date Recorded Sex Assigned at Not on file Legal Sex Female 3:43 AM AIRFREIGHT OPERATIONS AGENT Gender Identity Not on file Sexual Orientation Not on file documented as of this encounter Plan of Treatment Not on file documented as of this encounter Visit Diagnoses Diagnosis Adhesive capsulit shlder- Primary Adhesive capsulitis of shoulder documented in this encounter Care Teams Forge Shop Supervisor Relationship Specialty Start Date End Date Carlee Rossi MD PCP - General 11/17/05 documented as of this encounter
--- OUTSIDE RECORDS SUMMARY | 2025-09-23 17:44 | XMS_ITS | Encounter Summary ---
Author Organization [employer] [facility] Address [address] [place] [address] Care Team Providers Care Bowling Ball Grader And Marker Name Role Phone Carlee Rossi MD Primary Care Provid er Encounter Details Date Type Department Care Team (Late st Contact Info) Description 08/02/2005 Outpatient Historical [facility] Social History Tobacco Use Types Packs/Day Years Used Date Smoking Tobacco: Never Assessed Comments Unknown Sex and Gender Information Value Date Recorded Sex Assigned at Not on file Legal Sex Female 3:43 AM NOVELTY PRINTING MACHINE OPERATOR Gender Identity Not on file Sexual Orientation Not on file documented as of this encounter Plan of Treatment Not on file documented as of this encounter Visit Diagnoses Not on filedocumented in this encounter Care Teams Bowling Ball Grader And Marker Relationship Specialty Start Date End Date Carlee Rossi MD PCP - General 11/17/05 documented as of this encounter
--- OUTSIDE RECORDS SUMMARY | 2025-09-23 17:44 | XMS_ITS | Encounter Summary ---
Author Organization [employer] [facility] Address [address] [place] [address] Care Team Providers Care Hotbed Operator Name Role Phone Carlee Rossi MD Primary Care Provid er Encounter Details Date Type Department Care Team (Late st Contact Info) Description 07/20/2006 Outpatient Historical [facility] Social History Tobacco Use Types Packs/Day Years Used Date Smoking Tobacco: Never Assessed Comments Unknown Sex and Gender Information Value Date Recorded Sex Assigned at Not on file Legal Sex Female 3:43 AM FOAMITE MIXER Gender Identity Not on file Sexual Orientation Not on file documented as of this encounter Plan of Treatment Not on file documented as of this encounter Visit Diagnoses Not on filedocumented in this encounter Care Teams Hotbed Operator Relationship Specialty Start Date End Date Carlee Rossi MD PCP - General 11/17/05 documented as of this encounter
--- OUTSIDE RECORDS SUMMARY | 2025-09-23 17:44 | XMS_ITS | Encounter Summary ---
Author Organization [facility] Address [address] [place] [address] Care Team Providers Care Cook Helper Pastry Name Role Phone Carlee Rossi MD Primary Care Provid er Encounter Details Date Type Department Care Team (Latest Contact Info) Description 06/13/2005 Outpatient Historical [facility] Orthopedics- [address] [place] [place] [address] Jesús Oneal MD NO ADDRESS ON FILE SHOULDER REGION DIS NEC (Primary Dx); JOINT PAIN-PELVIS Social History Tobacco Use Types Packs/Day Years Used Date Smoking Tobacco: Never Assessed Comments Unknown Sex and Gender Information Value Date Recorded Sex Assigned at Not on file Legal Sex Female 3:43 AM PAIL BAILER Gender Identity Not on file Sexual Orientation Not on file documented as of this encounter Plan of Treatment Not on file documented as of this encounter Visit Diagnoses Diagnosis Other affections of shoulder region, not elsewhere classified- Primary Pain in joint, pelvic region and thigh documented in this encounter Care Teams Cook Helper Pastry Relationship Specialty Start Date End Date Carlee Rossi MD PCP - General 11/17/05 documented as of this encounter
--- OUTSIDE RECORDS SUMMARY | 2025-09-23 17:44 | XMS_ITS | Encounter Summary ---
Author Organization [facility] Address [address] [place] [address] Care Team Providers Care Restaurant Attendant Name Role Phone Carlee Rossi MD Primary Care Provid er Encounter Details Date Type Department Care Team (Latest Contact Info) Description 05/30/2005 Outpatient Historical [facility] Imaging Services[facility] [place] [address] [place] [address] Norma Eddy MD [address] [place] [address] PLEURISY W/O EFFUS OR TB (Primary Dx) Social History Tobacco Use Types Packs/Day Years Used Date Smoking Tobacco: Never Assessed Comments Unknown Sex and Gender Information Value Date Recorded Sex Assigned at Not on file Legal Sex Female 3:43 AM KENNEL WORKER Gender Identity Not on file Sexual Orientation Not on file documented as of this encounter Plan of Treatment Not on file documented as of this encounter Visit Diagnoses Diagnosis Pleurisy without mention of effusion or current tuberculosis- Primary documented in this encounter Care Teams Restaurant Attendant Relationship Specialty Start Date End Date Carlee Rossi MD PCP - General 11/17/05 documented as of this encounter
--- OUTSIDE RECORDS SUMMARY | 2025-09-23 17:44 | XMS_ITS | Encounter Summary ---
Author Organization [facility] Address [address] [place] [address] Care Team Providers Care Head Sawyer Name Role Phone Carlee Rossi MD Primary Care Provid er Encounter Details Date Type Department Care Team (Latest Contact Info) Description 06/13/2005 Outpatient Historical [facility] Ear, Nose and Throat [address] [place] [address] [place] [phone] Audi Elias MD [address] [place] [address] VOCAL CORD PARALYSIS NOS (Primary Dx) Social History Tobacco Use Types Packs/Day Years Used Date Smoking Tobacco: Never Assessed Comments Unknown Sex and Gender Information Value Date Recorded Sex Assigned at Not on file Legal Sex Female 3:43 AM RETAIL SHIFT SUPERVISOR Gender Identity Not on file Sexual Orientation Not on file documented as of this encounter Plan of Treatment Not on file documented as of this encounter Visit Diagnoses Diagnosis Paralysis of vocal cords or larynx, unspecified- Primary documented in this encounter Care Teams Head Sawyer Relationship Specialty Start Date End Date Carlee Rossi MD PCP - General 11/17/05 documented as of this encounter
--- OUTSIDE RECORDS SUMMARY | 2025-09-23 17:44 | XMS_ITS | Encounter Summary ---
Author Organization [facility] Address [address] [place] [address] Care Team Providers Care Medical Insurance Verifier Name Role Phone Carlee Rossi MD Primary Care Provid er Encounter Details Date Type Department Care Team (Latest Contact Info) Description 08/01/2005 Outpatient Historical [facility] Ear, Nose and Throat [address] [place] [address] [place] [address] [place] [phone] Audi Elias MD [address] [place] [address] VOCAL CORD PARALYSIS NOS (Primary Dx) Social History Tobacco Use Types Packs/Day Years Used Date Smoking Tobacco: Never Assessed Comments Unknown Sex and Gender Information Value Date Recorded Sex Assigned at Not on file Legal Sex Female 3:43 AM LIFE INSURANCE SALES AGENT Gender Identity Not on file Sexual Orientation Not on file documented as of this encounter Plan of Treatment Not on file documented as of this encounter Visit Diagnoses Diagnosis Paralysis of vocal cords or larynx, unspecified- Primary documented in this encounter Care Teams Medical Insurance Verifier Relationship Specialty Start Date End Date Carlee Rossi MD PCP - General 11/17/05 documented as of this encounter
--- OUTSIDE RECORDS SUMMARY | 2025-09-23 17:44 | XMS_ITS | Encounter Summary ---
Author Organization [employer] [facility] Address [address] [place] [address] Care Team Providers Care Housecleaner Name Role Phone Carlee Rossi MD Primary Care Provid er Encounter Details Date Type Department Care Team (Latest Contact Info) Description 09/26/2006 Outpatient Historical [facility] Carlee Rossi MD [address] [facility] [address] [place] [phone] Abnormal Mammogram, Unspecified (Primary Dx) Social History Tobacco Use Types Packs/Day Years Used Date Smoking Tobacco: Never Assessed Comments Unknown Sex and Gender Information Value Date Recorded Sex Assigned at Not on file Legal Sex Female 3:43 AM FLUME TENDER Gender Identity Not on file Sexual Orientation Not on file documented as of this encounter Plan of Treatment Not on file documented as of this encounter Visit Diagnoses Diagnosis Abnormal mammogram, unspecified- Primary documented in this encounter Care Teams Housecleaner Relationship Specialty Start Date End Date Carlee Rossi MD PCP - General 11/17/05 documented as of this encounter
--- OUTSIDE RECORDS SUMMARY | 2025-09-23 17:44 | XMS_ITS | Encounter Summary ---
Author Organization [employer] [facility] Address [address] [place] [address] Care Team Providers Care Crotch Breaker Name Role Phone Carlee Rossi MD Primary Care Provid er Encounter Details Date Type Department Care Team (Late st Contact Info) Description 08/17/2006 Outpatient Historical [facility] Social History Tobacco Use Types Packs/Day Years Used Date Smoking Tobacco: Never Assessed Comments Unknown Sex and Gender Information Value Date Recorded Sex Assigned at Not on file Legal Sex Female 3:43 AM MERCHANDISE ASSOCIATE Gender Identity Not on file Sexual Orientation Not on file documented as of this encounter Plan of Treatment Not on file documented as of this encounter Visit Diagnoses Not on filedocumented in this encounter Care Teams Crotch Breaker Relationship Specialty Start Date End Date Carlee Rossi MD PCP - General 11/17/05 documented as of this encounter
--- OUTSIDE RECORDS SUMMARY | 2025-09-23 17:44 | XMS_ITS | Encounter Summary ---
Author Organization [facility] Address [address] [place] [address] Care Team Providers Care Utility Forester Name Role Phone Carlee Rossi MD Primary Care Provid er Encounter Details Date Type Department Care Team (Latest Contact Info) Description 05/30/2005 Outpatient Historical [facility] Internal Medicine- [address] [place] [address] Norma Eddy MD [address] [place] [address] ALLERGIC RHINITIS NOS (Primary Dx); JOINT PAIN-SHLDER; MIXER OPERATOR HELPER HOT METAL DISORDER NOS Social History Tobacco Use Types Packs/Day Years Used Date Smoking Tobacco: Never Assessed Comments Unknown Sex and Gender Information Value Date Recorded Sex Assigned at Not on file Legal Sex Female 3:43 AM ANALYTICAL LAB ANALYST Gender Identity Not on file Sexual Orientation Not on file documented as of this encounter Plan of Treatment Not on file documented as of this encounter Visit Diagnoses Diagnosis Allergic rhinitis, cause unspecified- Primary Pain in joint, shoulder region Unspecified disorders of nervous system documented in this encounter Care Teams Utility Forester Relationship Specialty Start Date End Date Carlee Rossi MD PCP - General 11/17/05 documented as of this encounter
--- OUTSIDE RECORDS SUMMARY | 2025-09-23 17:44 | XMS_ITS | Encounter Summary ---
Author Organization [facility] Address [address] [place] [address] Care Team Providers Care Coin Machine Collector Name Role Phone Carlee Rossi MD Primary Care Provid er Encounter Details Date Type Department Care Team (Latest Contact Info) Description 07/07/2005 Outpatient Historical [facility] [address] [place] [address] [place] [phone] Ramona Gary MD NO ADDRESS ON FILE SCREENING MAMM-MAILG NEOPL NEC (Primary Dx) Social History Tobacco Use Types Packs/Day Years Used Date Smoking Tobacco: Never Assessed Comments Unknown Sex and Gender Information Value Date Recorded Sex Assigned at Not on file Legal Sex Female 3:43 AM HEALTH SPECIALIST Gender Identity Not on file Sexual Orientation Not on file documented as of this encounter Plan of Treatment Not on file documented as of this encounter Visit Diagnoses Diagnosis Other screening mammogram- Primary documented in this encounter Care Teams Coin Machine Collector Relationship Specialty Start Date End Date Carlee Rossi MD PCP - General 11/17/05 documented as of this encounter
--- OUTSIDE RECORDS SUMMARY | 2025-09-23 17:44 | XMS_ITS | Encounter Summary ---
Author Organization [facility] Address [address] [place] [address] Care Team Providers Care Transfusion Nurse Name Role Phone Carlee Rossi MD Primary Care Provid er Encounter Details Date Type Department Care Team (Late st Contact Info) Description 06/28/2005 Outpatient Historical [facility] Social History Tobacco Use Types Packs/Day Years Used Date Smoking Tobacco: Never Assessed Comments Unknown Sex and Gender Information Value Date Recorded Sex Assigned at Not on file Legal Sex Female 3:43 AM ASSISTANT CLINICAL DIRECTOR Gender Identity Not on file Sexual Orientation Not on file documented as of this encounter Plan of Treatment Not on file documented as of this encounter Visit Diagnoses Not on filedocumented in this encounter Care Teams Transfusion Nurse Relationship Specialty Start Date End Date Carlee Rossi MD PCP - General 11/17/05 documented as of this encounter
--- OUTSIDE RECORDS SUMMARY | 2025-09-23 17:45 | XMS_ITS | Encounter Summary ---
Author Organization [facility] Address [address] [place] [address] Care Team Providers Care Convention Services Manager Name Role Phone Carlee Rossi MD Primary Care Provid er Encounter Details Date Type Department Care Team (Latest Contact Info) Description 11/02/2014 Ancillary Orders [facility] Pre-Registration [place] CALL TO MAKE APPOINTMENT ONLY [address] [place] [address] Carlee Rossi MD [address] [place] [address] Abnormal mammogram, unspecified (Primary Dx) Social History Tobacco Use Types Packs/Day Years Used Date Smoking Tobacco: Never Smokeless Tobacco: Never Alcohol Use Standard Drinks/Week Comments No 0 (1 standard drink = 0.6 oz pur e alcohol) Comments No Sex and Gender Information Value Date Recorded Sex Assigned at Not on file Legal Sex Female 3:43 AM SALES DEPARTMENT MANAGER Gender Identity Not on file Sexual Orientation Not on file Occupation Industry Job Start Date Job End Date Not on file Not on file Not on file Not on file documented as of this encounter Plan of Treatment Not on file documented as of this encounter Visit Diagnoses Diagnosis Abnormal mammogram, unspecified- Primary documented in this encounter Care Teams Convention Services Manager Relationship Specialty Start Date End Date Carlee Rossi MD PCP - General 11/17/05 documented as of this encounter
--- OUTSIDE RECORDS SUMMARY | 2025-09-23 17:45 | XMS_ITS | Encounter Summary ---
Author Organization [facility] Address [address] [place] [address] Care Team Providers Care Paint Laboratory Technician Name Role Phone Carlee Rossi MD Primary Care Provid er Encounter Details Date Type Department Care Team (Late st Contact Info) Description 07/27/2006 Outpatient Historical [facility] Social History Tobacco Use Types Packs/Day Years Used Date Smoking Tobacco: Never Assessed Comments Unknown Sex and Gender Information Value Date Recorded Sex Assigned at Not on file Legal Sex Female 3:43 AM ORTHOTIC/PROSTHETIC CLINICIAN Gender Identity Not on file Sexual Orientation Not on file documented as of this encounter Plan of Treatment Not on file documented as of this encounter Visit Diagnoses Not on filedocumented in this encounter Care Teams Paint Laboratory Technician Relationship Specialty Start Date End Date Carlee Rossi MD PCP - General 11/17/05 documented as of this encounter
--- OUTSIDE RECORDS SUMMARY | 2025-09-23 17:45 | XMS_ITS | Encounter Summary ---
Author Organization [facility] Address [address] [place] [address] Care Team Providers Care Residential Subcontractor Name Role Phone Carlee Rossi MD Primary Care Provid er Encounter Details Date Type Department Care Team (Latest Contact Info) Description 05/09/2006 Outpatient Historical [facility] Orthopedics- [address] [place] [address] Jesús Oneal MD NO ADDRESS ON FILE Other Affections of Shoulder Region, not Elsewhere Classified (Primary Dx); Cervicalgia Social History Tobacco Use Types Packs/Day Years Used Date Smoking Tobacco: Never Assessed Comments Unknown Sex and Gender Information Value Date Recorded Sex Assigned at Not on file Legal Sex Female 3:43 AM AUDIT CLERKS SUPERVISOR Gender Identity Not on file Sexual Orientation Not on file documented as of this encounter Plan of Treatment Not on file documented as of this encounter Visit Diagnoses Diagnosis Other affections of shoulder region, not elsewhere classified- Primary Cervicalgia documented in this encounter Care Teams Residential Subcontractor Relationship Specialty Start Date End Date Carlee Rossi MD PCP - General 11/17/05 documented as of this encounter
--- OUTSIDE RECORDS SUMMARY | 2025-09-23 17:45 | XMS_ITS | Encounter Summary ---
Author Organization [facility] Address [address] [place] [address] Care Team Providers Care Architect In Training Name Role Phone Carlee Rossi MD Primary Care Provid er Encounter Details Date Type Department Care Team (Latest Contact Info) Description 05/22/2005 Outpatient Historical [facility] Neurology [address] [place] [phone] Wyatt Diaz MD NO ADDRESS ON FILE GEN CONVUL EPI W/O MENTN INTRACT (CMS/[facility]) (Primary Dx); VOCAL CORD PARALYSIS NOS Social History Tobacco Use Types Packs/Day Years Used Date Smoking Tobacco: Never Assessed Comments Unknown Sex and Gender Information Value Date Recorded Sex Assigned at Not on file Legal Sex Female 3:43 AM THERMAL CUTTING MACHINE OPERATOR Gender Identity Not on file Sexual Orientation Not on file documented as of this encounter Plan of Treatment Not on file documented as of this encounter Visit Diagnoses Diagnosis 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
--- OUTSIDE RECORDS SUMMARY | 2025-09-23 17:45 | XMS_ITS | Encounter Summary ---
Author Organization [facility] Address [address] [place] [address] Care Team Providers Care Refrigerated Company Driver Name Role Phone Carlee Rossi MD Primary Care Provid er Encounter Details Date Type Department Care Team (Latest Contact Info) Description 07/26/2006 Outpatient Historical [facility] Physical Therapy [address] [place] [address] Jesús Oneal MD NO ADDRESS ON FILE Other Physical Therapy (Primary Dx) Social History Tobacco Use Types Packs/Day Years Used Date Smoking Tobacco: Never Assessed Comments Unknown Sex and Gender Information Value Date Recorded Sex Assigned at Not on file 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
--- OUTSIDE RECORDS SUMMARY | 2025-09-23 17:45 | XMS_ITS | Encounter Summary ---
Author Organization [facility] Address [address] [place] [address] Care Team Providers Care Map Drafter Name Role Phone Carlee Rossi MD Primary Care Provid er Encounter Details Date Type Department Care Team (Latest Contact Info) Description 06/11/2007 Outpatient Historical [facility] [place] [facility] Internal [facility]- [place] [address] [facility] [address] [place] [address] Carlee Rossi MD [address] [address] [place] [address] Skin Sensation Disturb (Primary Dx); Headache Social History Tobacco Use Types Packs/Day Years Used Date Smoking Tobacco: Never Assessed Comments Unknown Sex and Gender Information Value Date Recorded Sex Assigned at Not on file 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
--- OUTSIDE RECORDS SUMMARY | 2025-09-23 17:45 | XMS_ITS | Encounter Summary ---
Author Organization [facility] Address [address] [place] [address] Care Team Providers Care Product Promoter Sales Person Name Role Phone Carlee Rossi MD Primary Care Provid er Encounter Details Date Type Department Care Team (Latest Contact Info) Description 04/26/2005 Outpatient [facility] Ear, Nose and Throat [address] [place] [address] [place] [phone] Zeeshan Marc MD NO ADDRESS ON FILE VOICE DISTURBANCE NEC (Primary Dx); CHRONIC LARYNGITIS Social History Tobacco Use Types Packs/Day Years Used Date Smoking Tobacco: Never Assessed Comments Unknown Sex and Gender Information Value Date Recorded Sex Assigned at Not on file Legal Sex Female 3:43 AM MANAGER ORDER Gender Identity Not on file Sexual Orientation Not on file documented as of this encounter Plan of Treatment Not on file documented as of this encounter Visit Diagnoses Diagnosis Other voice and resonance disorders- Primary Chronic laryngitis documented in this encounter Care Teams Product Promoter Sales Person Relationship Specialty Start Date End Date Carlee Rossi MD PCP - General 11/17/05 documented as of this encounter
--- OUTSIDE RECORDS SUMMARY | 2025-09-23 17:45 | XMS_ITS | Encounter Summary ---
Author Organization [facility] Address [address] [place] [address] Care Team Providers Care Shoe Stock Associate Name Role Phone Carlee Rossi MD Primary Care Provid er Encounter Details Date Type Department Care Team (Late st Contact Info) Description 03/21/2005 Outpatient Historical [facility] Imaging Services-[facility] [place] [address] [place] [address] Social History Tobacco Use Types Packs/Day Years Used Date Smoking Tobacco: Never Assessed Comments Unknown Sex and Gender Information Value Date Recorded Sex Assigned at Not on file 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
--- OUTSIDE RECORDS SUMMARY | 2025-09-23 17:45 | XMS_ITS | Encounter Summary ---
Author Organization [facility] Address [address] [place] [address] Care Team Providers Care Firewall Security Engineer Name Role Phone Carlee Rossi MD Primary Care Provid er Encounter Details Date Type Department Care Team (Latest Contact Info) Description 05/22/2005 Outpatient [facility] Imaging and Laboratory Services [address] [place] [address] Wyatt Diaz MD NO ADDRESS ON FILE PLEURISY W/O EFFUS OR TB (Primary Dx) Social History Tobacco Use Types Packs/Day Years Used Date Smoking Tobacco: Never Assessed Comments Unknown Sex and Gender Information Value Date Recorded Sex Assigned at Not on file 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
--- OUTSIDE RECORDS SUMMARY | 2025-09-23 17:45 | XMS_ITS | Encounter Summary ---
Author Organization [facility] Address [address] [place] [address] Care Team Providers Care Wood Car Builder Name Role Phone Carlee Rossi MD Primary Care Provid er Encounter Details Date Type Department Care Team (Late st Contact Info) Description 12/17/2007 Outpatient Historical [facility] Ear, Nose and Throat [address] [place] 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
--- OUTSIDE RECORDS SUMMARY | 2025-09-23 17:45 | XMS_ITS | Encounter Summary ---
Author Organization [facility] Address [address] [place] [address] Care Team Providers Care Research Study Assistant Name Role Phone Carlee Rossi MD Primary Care Provid er Encounter Details Date Type Department Care Team (Late st Contact Info) Description 12/12/2007 Outpatient [facility] Breast Center [facility] [address], [place] [address] Carlee Rossi MD [address] [facility] [address] [place] [address] Social History Tobacco Use Types Packs/Day Years Used Date Smoking Tobacco: Never Assessed Comments Unknown Sex and Gender Information Value Date Recorded Sex Assigned at Not on file Legal Sex Female 3:43 AM CANTEEN MANAGER Gender Identity Not on file Sexual Orientation Not on file documented as of this encounter Plan of Treatment Not on file documented as of this encounter Procedures Procedure Name Priority Date/Time Associated Diagnosis Comments MAMMO SCREENING BILAT Routine 12/17/2007 8:18 AM CANTEEN MANAGER MAMMO SCRN TO DIAG BILAT Routine 12/17/2007 8:18 AM CANTEEN MANAGER documented in this encounter Results * MAMMO SCREENING BILAT (12/17/2007 8:18 AM CANTEEN MANAGER) Anatomical Region Laterality Modality Breast Bilateral Other Narrative 12/17/2007 8:18 AM CANTEEN MANAGER Report Available in [facility] Procedure Note 12/14/2008 Report Available in [facility] Carlee Rossi MD MAMMO ORDERABLES Fin al Result * MAMMO SCRN TO CYNTHIA YEAT (12/17/2007 8:18 AM CANTEEN MANAGER) Anatomical Region Laterality Modality Breast Other Narrative 12/17/2007 8:18 AM CANTEEN MANAGER Report Available in [facility] Procedure Note 12/14/2008 Report Available in [facility] Carlee Rossi MD MAMMO ORDERABLES Fin al Result documented in this encounter Visit Diagnoses Not on filedocumented in this encounter Care Teams Research Study Assistant Relationship Specialty Start Date End Date Carlee Rossi MD PCP - General 11/17/05 documented as of this encounter
--- OUTSIDE RECORDS SUMMARY | 2025-09-23 17:45 | XMS_ITS | Encounter Summary ---
Author Organization [facility] Address [address] [place] [address] Care Team Providers Care Community Service Worker Name Role Phone Carlee Rossi MD Primary Care Provid er Encounter Details Date Type Department Care Team (Late st Contact Info) Description 12/02/2007 Outpatient [facility] Ear, Nose and Throat [address] [place] 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
--- OUTSIDE RECORDS SUMMARY | 2025-09-23 17:45 | XMS_ITS | Encounter Summary ---
Author Organization [facility] Address [address] [place] [address] Care Team Providers Care Shade Maker Name Role Phone Carlee Rossi MD Primary Care Provid er Encounter Details Date Type Department Care Team (Late st Contact Info) Description 06/14/2007 Outpatient Historical [facility] Imaging Services [facility] 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 Technique: Sagittal and axial T1, axial proton density and T2 FRAN, axial FLAIR, axial and coronalpostgadolinium T1 fat-sat IAC images, axial DWI and ADC, axial T1 postcontrast sequences wereperformed. Contrast was administered by hand injection, Optimark 10 mLComparison: None. Findings: The axial DWI and ADC sequences show no signs of restricted diffusion. The axial FLAIR sequence axial T2 and proton-dense sequences show no focal signal abnormalities in thebrain. The usual jxar-kjlbjf-shxuynzjf white matter changes in the nunez radiata are present. Paranasal sinuses are clear. Sagittal and axial T1 noncontrast and axial T1 postcontrast sequences show enhancement of the usualvascular structures. The meninges are unremarkable. No enhancing intra- axial mass isidentified. Impression: Unremarkable study. - Dictated By: Michael Terrell M.D. Electronically Signed By: Michael Terrell M.D. Date Signed: 06/14/07 ANGY Procedure Note 10/02/2009 Exam: MRI - Brain with and without ContrastDate/Time of Exam: Jun 14, 2007 7:37:05 AMHistory: H/A. Technique: Sagittal and axial T1, axial proton density and T2 FRAN, axial FLAIR, axialand coronalpostgadolinium T1 fat-sat IAC images, axial DWI and ADC, axial T1 postcontrast sequenceswereperformed. Contrast was administered by hand injection, Optimark 10 mLComparison: None. Findings: The axial DWI and ADC sequences show no signs of restricted diffusion. The axial FLAIR sequence axial T2 and proton-dense sequences show no focalsignal abnormalities in thebrain. The usual pmad-hauqja-fouinkiqd white matter changes in thecorona radiata are present. Paranasal sinuses are clear. Sagittal and axial T1 noncontrast and axial T1 postcontrast sequences showenhancement of the usualvascular structures. The meninges are unremarkable. No enhancingintra-axial mass isidentified. Impression: Unremarkable study. - Dictated By: Michael Terrell M.D. Electronically Signed By: Michael Terrell M.D. Date Signed: 06/14/07 ANGY Carlee Rossi MD MR ORDERABLES Ingrid l Result documented in this encounter Visit Diagnoses Not on filedocumented in this encounter Care Teams Shade Maker Relationship Specialty Start Date End Date Carlee Rossi MD PCP - General 11/17/05 documented as of this encounter
--- OUTSIDE RECORDS SUMMARY | 2025-09-23 17:45 | XMS_ITS | Encounter Summary ---
Author Organization [facility] Address [address] [place] [address] Care Team Providers Care Software Configuration Manager Name Role Phone Carlee Rossi MD Primary Care Provid er Encounter Details Date Type Department Care Team (Latest Contact Info) Description 04/11/2005 Outpatient Historical [facility] Ear, Nose and Throat [address] [place] [address] [place] [phone] Audi Elias MD [address] [place] [address] VOICE DISTURBANCE NEC (Primary Dx) Social History Tobacco Use Types Packs/Day Years Used Date Smoking Tobacco: Never Assessed Comments Unknown Sex and Gender Information Value Date Recorded Sex Assigned at Not on file Legal Sex Female 3:43 AM DIRECTOR OF RECRUITMENT AND ADMISSIONS Gender Identity Not on file Sexual Orientation Not on file documented as of this encounter Plan of Treatment Not on file documented as of this encounter Visit Diagnoses Diagnosis Other voice and resonance disorders- Primary documented in this encounter Care Teams Software Configuration Manager Relationship Specialty Start Date End Date Carlee Rossi MD PCP - General 11/17/05 documented as of this encounter
--- OUTSIDE RECORDS SUMMARY | 2025-09-23 17:45 | XMS_ITS | Encounter Summary ---
Author Organization [facility] Address [address] [place] [address] Care Team Providers Care House Designer Name Role Phone Carlee Rossi MD Primary Care Provid er Encounter Details Date Type Department Care Team (Late st Contact Info) Description 12/14/2008 Ancillary Orders [facility] [address] [phone] Ignacio Houser MD NO ADDRESS ON FILE Screening Mammogram Social History Tobacco Use Types Packs/Day Years Used Date Smoking Tobacco: Never Assessed Comments Unknown Sex and Gender Information Value Date Recorded Sex Assigned at Not on file 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 Findings: Bilateral CC and MLO views were obtained. This examination was reviewed with the aid of a computer-aided detection system(CAD). The breast tissue is dense. No significant new findings since the prior mammogram(s). Procedure Note Ramona Gary MD - 01/31/2009 Bilateral Mammogram Reason for Exam: Screening Comparison: Comparison is made with the prior exam(s) dated 09.17.06,12.17.07. Findings: Bilateral CC and MLO views were obtained. This examination was reviewed with the aid of a computer-aided detectionsystem(CAD). The breast tissue is dense. No significant new findings since the prior mammogram(s). Ignacio Houser MD MAMMO ORDERABLES Ingrid ssoa Result documented in this encounter Visit Diagnoses Diagnosis Screening mammogram Other screening mammogram Screening mammogram Other screening mammogram documented in this encounter Care Teams House Designer Relationship Specialty Start Date End Date Carlee Rossi MD PCP - General 11/17/05 documented as of this encounter
--- OUTSIDE RECORDS SUMMARY | 2025-09-23 17:45 | XMS_ITS | Encounter Summary ---
Author Organization 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
--- OUTSIDE RECORDS SUMMARY | 2025-09-23 17:45 | XMS_ITS | Encounter Summary ---
Author Organization [facility] Address [address] [place] [address] Care Team Providers Care Tariff Clerk Name Role Phone Carlee Rossi MD Primary Care Provid er Encounter Details Date Type Department Care Team (Latest Contact Info) Description 04/18/2006 Outpatient Historical [facility] Imaging Services-[facility] [place] [address] [place] [address] Carlee Rossi MD [address] [place] [address] Cervical Spondylosis (Primary Dx); Cervicalgia Social History Tobacco Use Types Packs/Day Years Used Date Smoking Tobacco: Never Assessed Comments Unknown Sex and Gender Information Value Date Recorded Sex Assigned at Not on file 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
--- OUTSIDE RECORDS SUMMARY | 2025-09-23 17:45 | XMS_ITS | Encounter Summary ---
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
--- OUTSIDE RECORDS SUMMARY | 2025-09-23 17:45 | XMS_ITS | Encounter Summary ---
Author Organization [facility] Address [address] [place] [address] Care Team Providers Care Refrigerating Technician Name Role Phone Carlee Rossi MD Primary Care Provid er Encounter Details Date Type Department Care Team (Latest Contact Info) Description 10/23/2005 Outpatient Historical [facility] Orthopedics- [address] [place] [address] Jesús Oneal MD NO ADDRESS ON FILE JOINT PAIN-SHLDER (Primary Dx) Social History Tobacco Use Types Packs/Day Years Used Date Smoking Tobacco: Never Assessed Comments Unknown Sex and Gender Information Value Date Recorded Sex Assigned at Not on file Legal Sex Female 3:43 AM CALL TAKER Gender Identity Not on file Sexual Orientation Not on file documented as of this encounter Plan of Treatment Not on file documented as of this encounter Visit Diagnoses Diagnosis Pain in joint, shoulder region- Primary documented in this encounter Care Teams Refrigerating Technician Relationship Specialty Start Date End Date Carlee Rossi MD PCP - General 11/17/05 documented as of this encounter
--- OUTSIDE RECORDS SUMMARY | 2025-09-23 17:45 | XMS_ITS | Encounter Summary ---
Author Organization [facility] Address [address] [place] [address] Care Team Providers Care Sprinkler Irrigation Equipment Mechanic Name Role Phone Carlee Rossi MD Primary Care Provid er Encounter Details Date Type Department Care Team (Late st Contact Info) Description 12/17/2007 Outpatient Historical [facility] Ear, Nose and Throat [address] [place] [phone] Rafi Yost MD [facility] [place] [address] Social History Tobacco Use Types Packs/Day Years Used Date Smoking Tobacco: Never Assessed Comments Unknown Sex and Gender Information Value Date Recorded Sex Assigned at Not on file Legal Sex Female 3:43 AM HOSPITAL ADMISSIONS OFFICER Gender Identity Not on file Sexual Orientation Not on file documented as of this encounter Miscellaneous Notes * Letter - Rafi Yost - 12/17/2007 12:00 AM CST 12/17/2007 Helen España M.D. [place] [address] [place] [address] RE: Terri Booth : 1960 Dear Teodoro: I had the pleasure of seeing our mutual patient, Ms. Terri Booth, for follow-up evaluation ofher hoarseness. Ms. Booth continues to have difficulties with her voice. Her voice is strained and she has vocal fatigue. She also has pitch breaks and continues to have difficulty in her speaking at work and at home. She had removal of Radiesse from her larynx by Dr. Santiago of the [facility] last fall. She reports that essentially her symptoms remained unchanged. We had her see our speech therapist for a videostroboscopy today. She had decreased mucosal wave on the left side, in particular at lower pitches. 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 I recommended that Ms. Booth keep her follow-up appointment with Dr. Santiago as I would be interested to hear his impression and recommendations. She will follow-up with me in three months. Thank you very much for the opportunity to participate in the care of your patient. Please do not hesitate to contact me if you are in need of further assistance. Warm regards, Fred Yost M.D., Ph.D., FACS Ear, Nose & Throat Electronically Signed by Fred Yost M.D. 01/16/2008 07:27 , 12:31 P P, 167 Document #: [id number] cc: Elly Coy M.D. ITAL ADMISSIONS OFFICER documented in this encounter Plan of Treatment Not on file documented as of this encounter Visit Diagnoses Not on filedocumented in this encounter Care Teams Sprinkler Irrigation Equipment Mechanic Relationship Specialty Start Date End Date Carlee Rossi MD PCP - General 11/17/05 documented as of this encounter
--- OUTSIDE RECORDS SUMMARY | 2025-09-23 17:45 | XMS_ITS | Encounter Summary ---
Author Organization [facility] Address [address] [place] [address] Care Team Providers Care Hr Administrative Assistant Name Role Phone Carlee Rossi MD Primary Care Provid er Encounter Details Date Type Department Care Team (Latest Contact Info) Description 07/03/2006 Outpatient Historical [facility] Orthopedics- 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
--- OUTSIDE RECORDS SUMMARY | 2025-09-23 17:45 | XMS_ITS | Encounter Summary ---
Author Organization [facility] Address [address] [place] [address] Care Team Providers Care Ccnp Name Role Phone Carlee Rossi MD Primary Care Provid er Encounter Details Date Type Department Care Team (Latest Contact Info) Description 06/21/2006 Outpatient Historical 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
--- OUTSIDE RECORDS SUMMARY | 2025-09-23 17:45 | XMS_ITS | Encounter Summary ---
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
--- OUTSIDE RECORDS SUMMARY | 2025-09-23 17:45 | XMS_ITS | Encounter Summary ---
Author Organization [facility] Address [address] [place] [address] Care Team Providers Care Fence Erector Name Role Phone Carlee Rossi MD Primary Care Provid er Encounter Details Date Type Department Care Team (Latest Contact Info) Description 03/20/2005 Outpatient Historical [facility] Internal Medicine[address] [place] [address] Norma Eddy MD [address] [place] [address] ALLERGIC RHINITIS NOS (Primary Dx); REFLUX ESOPHAGITIS; JOINT PAIN-SHLDER; FEMALE GENITAL SYMPTOMS NOS Social History Tobacco Use Types Packs/Day Years Used Date Smoking Tobacco: Never Assessed Comments Unknown Sex and Gender Information Value Date Recorded Sex Assigned at Not on file Legal Sex Female 3:43 AM WIRE ROPE FABRICATION SUPERVISOR Gender Identity Not on file Sexual Orientation Not on file documented as of this encounter Plan of Treatment Not on file documented as of this encounter Visit Diagnoses Diagnosis Allergic rhinitis, cause unspecified- Primary Reflux esophagitis Pain in joint, shoulder region Unspecified symptom associated with female genital organs documented in this encounter Care Teams Fence Erector Relationship Specialty Start Date End Date Carlee Rossi MD PCP - General 11/17/05 documented as of this encounter
--- OUTSIDE RECORDS SUMMARY | 2025-09-23 17:45 | XMS_ITS | Encounter Summary ---
Author Organization [facility] Address [address] [place] [address] Care Team Providers Care Agronomy Specialist Name Role Phone Carlee Rossi MD Primary Care Provid er Encounter Details Date Type Department Care Team (Latest Contact Info) Description 06/25/2006 Outpatient Historical [facility] Physical Therapy [address] [place] [address] [place] [phone] Jesús Oneal MD NO ADDRESS ON FILE Other Specified Aftercare Following Surgery (Primary Dx) Social History Tobacco Use Types Packs/Day Years Used Date Smoking Tobacco: Never Assessed Comments Unknown Sex and Gender Information Value Date Recorded Sex Assigned at Not on file 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
--- OUTSIDE RECORDS SUMMARY | 2025-09-23 17:45 | XMS_ITS | Encounter Summary ---
Author Organization [facility] Address [address] [place] [address] Care Team Providers Care Top Precipitator Operator Name Role Phone Carlee Rossi MD Primary Care Provid er Encounter Details Date Type Department Care Team (Latest Contact Info) Description 03/23/2006 Outpatient Historical [facility] Internal Medicine- [place] [address] [facility] [address] [place] [address] Carlee Rossi MD [address] [place] [address] Excessive Menstruation (Primary Dx); Other Convulsions (CMS/HCC); Palpitations; Screening for Malignant Neoplasm of the Cervix Social History Tobacco Use Types Packs/Day Years Used Date Smoking Tobacco: Never Assessed Comments Unknown Sex and Gender Information Value Date Recorded Sex Assigned at Not on file Legal Sex Female 3:43 AM MERINGUER Gender Identity Not on file Sexual Orientation Not on file documented as of this encounter Plan of Treatment Not on file documented as of this encounter Visit Diagnoses Diagnosis Excessive menstruation- Primary Excessive or frequent menstruation Other convulsions Palpitations Screening for malignant neoplasm of the cervix documented in this encounter Care Teams Top Precipitator Operator Relationship Specialty Start Date End Date Carlee Rossi MD PCP - General 11/17/05 documented as of this encounter
--- OUTSIDE RECORDS SUMMARY | 2025-09-23 17:45 | XMS_ITS | Encounter Summary ---
Author Organization [facility] Address [address] [place] [address] Care Team Providers Care Medical Records Library Professor Name Role Phone Carlee Rossi MD Primary Care Provid er Encounter Details Date Type Department Care Team (Latest Contact Info) Description 06/14/2007 Outpatient Historical [facility] Imaging Services [address] [place] [address] Carlee Rossi MD [address] [facility] [address] [place] [address] Headache (Primary Dx) Social History Tobacco Use Types Packs/Day Years Used Date Smoking Tobacco: Never Assessed Comments Unknown Sex and Gender Information Value Date Recorded Sex Assigned at Not on file Legal Sex Female 3:43 AM FACILITY ADMINISTRATOR Gender Identity Not on file Sexual Orientation Not on file documented as of this encounter Plan of Treatment Not on file documented as of this encounter Visit Diagnoses Diagnosis Headache(784.0)- Primary Headache documented in this encounter Care Teams Medical Records Library Professor Relationship Specialty Start Date End Date Carlee Rossi MD PCP - General 11/17/05 documented as of this encounter
--- OUTSIDE RECORDS SUMMARY | 2025-09-23 17:45 | XMS_ITS | Encounter Summary ---
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
--- OUTSIDE RECORDS SUMMARY | 2025-09-23 17:45 | XMS_ITS | Encounter Summary ---
Author Organization [facility] Address [address] [place] [address] Care Team Providers Care Dry Kiln Worker Name Role Phone Carlee Rossi MD Primary Care Provid er Encounter Details Date Type Department Care Team (Late st Contact Info) Description 11/17/2005 Outpatient Historical [facility] Imaging Services [address] [facility] [address] [place] [phone] Social History Tobacco Use Types Packs/Day Years Used Date Smoking Tobacco: Never Assessed Comments Unknown Sex and Gender Information Value Date Recorded Sex Assigned at Not on file Legal Sex Female 3:43 AM YOUTH MANAGER Gender Identity Not on file Sexual Orientation Not on file documented as of this encounter Plan of Treatment Not on file documented as of this encounter Procedures Procedure Name Priority Date/Time Associated Diagnosis Comments MRI SHOULDER WO CONTRAST LEFT Routine 11/17/2005 4:52 PM YOUTH MANAGER documented in this encounter Results * MRI SHOULDER WO CONTRAST LEFT (11/17/2005 4:52 PM YOUTH MANAGER) Anatomical Region Laterality Modality Upper Extremity Other 11/17/2005 4:52 PM YOUTH MANAGER Narrative 11/17/2005 4:52 PM YOUTH MANAGER LEFT SHOULDER MRI WITHOUT: HISTORY: Impingement. MRI of the left shoulder was performed without contrast. There is prominent edema in the musculotendinous junction of supraspinatus and edema in the rotator interval. The tendons of the rotator cuff are intact. The supraspinatus, infraspinatus, teres minor, and subscapularis are attaching the humerus. The infraspinatus, teres minor, and subscapularis demonstrate some mild tendinopathy, but are otherwise appropriate in appearance. There is some fluid in the subacromial and subdeltoid bursa directly overlying the abnormalities in the supraspinatus tendon. 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 No definite subacromial bone spur is identified. The long head biceps tendon is identified within the bicipital groove of the humerus. It is attaching the glenoid labral complex. No linear labral tear or paralabral cyst is identified. There is no muscle atrophy. Prominent area of edema involving the musculotendinous junction, the supraspinatus and rotator interval with some fluid in the adjacent bursa. This may reflect a recent strain but the findings are also compatible with impingement. There is no complete rotator cuff tear. [facility] D: 11-18-05 0759 Dictated By: Roxanne Higginbotham M.D. Electronically Signed By: Roxanne Higginbotham M.D. Date Signed: 11/19/05 Procedure Note 09/30/2009 LEFT SHOULDER MRI WITHOUT: HISTORY: Impingement. MRI of the left shoulder was performed without contrast. There isprominent edema in the musculotendinous junction of supraspinatus and edema in the rotator interval. The tendonsof the rotator cuff are intact. The supraspinatus, infraspinatus, teres minor, and subscapularisare attaching the humerus. The infraspinatus, teres minor, and subscapularis demonstrate some mildtendinopathy, but are otherwise appropriate in appearance. There is some fluid in the subacromial andsubdeltoid bursa directly overlying the abnormalities in the supraspinatus tendon. The patient does have someosteoarthritic changes in the acromioclavicular joint and the fluid and edema is most prominent directlyinferior to the AC joint and lateral acromion. No definite subacromial bone spur is identified. Thelong head biceps tendon is identified within the bicipital groove of the humerus. It is attaching theglenoid labral complex. No linear labral tear or paralabral cyst is identified. There is no muscleatrophy. Prominent area of edema involving the musculotendinous junction, thesupraspinatus and rotator interval with some fluid in the adjacent bursa. This may reflect a recent strainbut the findings are also compatible with impingement. There is no complete rotator cuff tear. [facility] D: 11-18-05 0759 Dictated By: Roxanne Higginbotham M.D. Electronically Signed By: Roxanne Higginbotham M.D. Date Signed: 11/19/05 us Historical Provider MR ORDERABLES Edited documented in this encounter Visit Diagnoses Not on filedocumented in this encounter Care Teams Dry Kiln Worker Relationship Specialty Start Date End Date Carlee Rossi MD PCP - General 11/17/05 documented as of this encounter
--- OUTSIDE RECORDS SUMMARY | 2025-09-23 17:45 | XMS_ITS | Encounter Summary ---
Author Organization [facility] Address [address] [place] [address] Care Team Providers Care Clinical Rehabilitation Specialist Name Role Phone Carlee Rossi MD Primary Care Provid er Encounter Details Date Type Department Care Team (Latest Contact Info) Description 04/19/2005 Outpatient Historical [facility] Ear, Nose and Throat 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
--- OUTSIDE RECORDS SUMMARY | 2025-09-23 17:45 | XMS_ITS | Encounter Summary ---
Author Organization [facility] Address [address] [place] [address] Care Team Providers Care Sliver Lap Tender Name Role Phone Carlee Rossi MD Primary Care Provid er Encounter Details Date Type Department Care Team (Late st Contact Info) Description 06/02/2007 Outpatient Historical [facility] Physical Therapy [address] [place] [phone] Jesús Oneal MD NO ADDRESS ON FILE Social History Tobacco Use Types Packs/Day Years Used Date Smoking Tobacco: Never Assessed Comments Unknown Sex and Gender Information Value Date Recorded Sex Assigned at Not on file 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
--- OUTSIDE RECORDS SUMMARY | 2025-09-23 17:45 | XMS_ITS | Encounter Summary ---
Author Organization [facility] Address [address] [place] [address] Care Team Providers Care Wire Mesh Filter Fabricator Name Role Phone Carlee Rossi MD Primary Care Provid er Encounter Details Date Type Department Care Team (Late st Contact Info) Description 12/02/2007 Outpatient [facility] Ear, Nose and Throat [address] [place] [phone] Rafi Yost MD [facility] [place] [phone] Social History Tobacco Use Types Packs/Day Years Used Date Smoking Tobacco: Never Assessed Comments Unknown Sex and Gender Information Value Date Recorded Sex Assigned at Not on file Legal Sex Female 3:43 AM WORKING SECOND HAND Gender Identity Not on file Sexual Orientation Not on file documented as of this encounter Plan of Treatment Not on file documented as of this encounter Visit Diagnoses Not on filedocumented in this encounter Care Teams Wire Mesh Filter Fabricator Relationship Specialty Start Date End Date Carlee Rossi MD PCP - General 11/17/05 documented as of this encounter
--- OUTSIDE RECORDS SUMMARY | 2025-09-23 17:45 | XMS_ITS | Encounter Summary ---
Author Organization [employer] [facility] Address [address] [place] [address] Care Team Providers Care Notch Grinder Name Role Phone Carlee Rossi MD Primary Care Provid er Encounter Details Date Type Department Care Team (Late st Contact Info) Description 08/21/2006 Outpatient Historical [facility] Social History Tobacco Use Types Packs/Day Years Used Date Smoking Tobacco: Never Assessed Comments Unknown Sex and Gender Information Value Date Recorded Sex Assigned at Not on file Legal Sex Female 3:43 AM ROTARY SURFACE GRINDER Gender Identity Not on file Sexual Orientation Not on file documented as of this encounter Plan of Treatment Not on file documented as of this encounter Visit Diagnoses Not on filedocumented in this encounter Care Teams Notch Grinder Relationship Specialty Start Date End Date Carlee Rossi MD PCP - General 11/17/05 documented as of this encounter
--- OUTSIDE RECORDS SUMMARY | 2025-09-23 17:45 | XMS_ITS | Encounter Summary ---
Author Organization [facility] Address [address] [place] [address] Care Team Providers Care Dural Mechanic Name Role Phone Carlee Rossi MD Primary Care Provid er Encounter Details Date Type Department Care Team (Latest Contact Info) Description 08/27/2007 Outpatient Historical [facility] [address] [place] [phone] Rafi Yost MD [facility] [place] [phone] Other Voice Disturbance (Primary Dx); Unspecified Tinnitus; Unspecified Sensorineural Hearing Loss Social History Tobacco Use Types Packs/Day Years Used Date Smoking Tobacco: Never Assessed Comments Unknown Sex and Gender Information Value Date Recorded Sex Assigned at Not on file Legal Sex Female 3:43 AM CAN CRIMPER Gender Identity Not on file Sexual Orientation Not on file documented as of this encounter Plan of Treatment Not on file documented as of this encounter Visit Diagnoses Diagnosis Other voice and resonance disorders- Primary Unspecified tinnitus Sensorineural hearing loss, unspecified documented in this encounter Care Teams Dural Mechanic Relationship Specialty Start Date End Date Carlee Rossi MD PCP - General 11/17/05 documented as of this encounter
--- OUTSIDE RECORDS SUMMARY | 2025-09-23 17:45 | XMS_ITS | Encounter Summary ---
Author Organization [facility] Address [address] [place] [address] Care Team Providers Care Steel Detailer Name Role Phone Carlee Rossi MD Primary Care Provid er Reason for Referral * Outpatient Services (Routine) - Closed Specialty Diagnoses / Procedures Referred By Franchesca bergeron Referred To Contact Diagnoses Visit for screening mammogram Procedures MAMMO DIGITAL SCREEN Carlee Muller MD Phone: tel: fax: Referral ID Status Reason Start Date Expiration Date Visits Re quested Visits Authorized [id number] Closed 06/29/2016 07/30/2017 1 1 Encounter Details Date Type Department Care Team (Latest Contact Info) Description 06/29/2016 Ancillary Orders [facility] Pre-Registration [facility] CALL TO MAKE APPOINTMENT ONLY [address] [place] [address] Carlee Rossi MD [address] [facility] [address] [place] [address] Visit for screening mammogram (Primary Dx) Social History Tobacco Use Types Packs/Day Years Used Date Smoking Tobacco: Never Smokeless Tobacco: Never Alcohol Use Standard Drinks/Week Comments No 0 (1 standard drink = 0.6 oz pur e alcohol) Comments No Sex and Gender Information Value Date Recorded Sex Assigned at Not on file Legal Sex Female 3:43 AM PENS AND PENCILS DIPPER Gender Identity Not on file Sexual Orientation Not on file Occupation Industry Job Start Date Job End Date Not on file Not on file Not on file Not on file documented as of this encounter Plan of Treatment Not on file documented as of this encounter Results * MAMMO DIGITAL SCREEN BILAT (07/11/2016 8:51 AM CDT) Anatomical Region Laterality Modality Breast Bilateral Mammography Narrative 07/12/2016 8:09 AM CDT Bilateral Mammogram Reason for Exam: Screening Comparison: Compared to: 05/25/2014 MAMMO DIGITAL DIAG BILAT, 02/14/2013 MAMMO DIGITAL SCREEN BILAT, 03/25/2012 MAMMO DIGITAL SCREEN BILAT, 03/10/2011 MAMMO DIGITAL SCREEN BILAT, 03/03/2010 MAMMO DIGITAL SCREEN BILAT, 01/29/2009 MAMMO SCREENING BILAT Findings: Bilateral CC and MLO views were obtained. This examination was reviewed with the aid of a computer-aided detection system(CAD). The breast tissue is very dense. Bilateral calcifications appear stable.Bilateral breast nodularity is stable. No significant new findings since the prior mammogram(s). Carlee Rossi MD MAMMO ORDERABLES Fin al Result documented in this encounter Visit Diagnoses Diagnosis Visit for screening mammogram- Primary Other screening mammogram Visit for screening mammogram Other screening mammogram documented in this encounter Care Teams Steel Detailer Relationship Specialty Start Date End Date Carlee Rossi MD PCP - General 11/17/05 documented as of this encounter
--- OUTSIDE RECORDS SUMMARY | 2025-09-23 17:45 | XMS_ITS | Encounter Summary ---
Author Organization [employer] [facility] Address [address] [place] [address] Care Team Providers Care Information Technology Administrator Name Role Phone Carlee Rossi MD Primary Care Provid er Encounter Details Date Type Department Care Team (Late st Contact Info) Description 06/26/2006 Outpatient Historical [facility] Social History Tobacco Use Types Packs/Day Years Used Date Smoking Tobacco: Never Assessed Comments Unknown Sex and Gender Information Value Date Recorded Sex Assigned at Not on file Legal Sex Female 3:[address] SECURITY OFFICER Gender Identity Not on file Sexual Orientation Not on file documented as of this encounter Plan of Treatment Not on file documented as of this encounter Visit Diagnoses Not on filedocumented in this encounter Care Teams Information Technology Administrator Relationship Specialty Start Date End Date Carlee Rossi MD PCP - General 11/17/05 documented as of this encounter
--- OUTSIDE RECORDS SUMMARY | 2025-09-23 17:45 | XMS_ITS | Encounter Summary ---
Author Organization [facility] Address [address] [place] [address] Care Team Providers Care Wire Spinner Name Role Phone Carlee Rossi MD Primary Care Provid er Encounter Details Date Type Department Care Team (Latest Contact Info) Description 10/15/[address] [facility] Physical Therapy [address] [place] [phone] Jesús Oneal MD NO ADDRESS ON FILE ADHESIVE CAPSULIT SHLDER (Primary Dx) Social History Tobacco Use Types Packs/Day Years Used Date Smoking Tobacco: Never Assessed Comments Unknown Sex and Gender Information Value Date Recorded Sex Assigned at Not on file Legal Sex Female 3:43 AM PHOTOENGRAVING HELPER Gender Identity Not on file Sexual Orientation Not on file documented as of this encounter Plan of Treatment Not on file documented as of this encounter Visit Diagnoses Diagnosis Adhesive capsulitis of shoulder- Primary documented in this encounter Care Teams Wire Spinner Relationship Specialty Start Date End Date Carlee Rossi MD PCP - General 11/17/05 documented as of this encounter
--- OUTSIDE RECORDS SUMMARY | 2025-09-23 17:45 | XMS_ITS | Encounter Summary ---
Author Organization [facility] Address [address] [place] [address] Care Team Providers Care Transportation Supervisor Name Role Phone Carlee Rossi MD Primary Care Provid er Encounter Details Date Type Department Care Team (Latest Contact Info) Description 11/29/2005 Outpatient Historical [facility] Orthopedics- 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
--- OUTSIDE RECORDS SUMMARY | 2025-09-23 17:45 | XMS_ITS | Encounter Summary ---
Author Organization [employer] [facility] Address [address] [place] [address] Care Team Providers Care Industrial Illuminating Engineer Name Role Phone Carlee Rossi MD Primary Care Provid er Encounter Details Date Type Department Care Team (Late st Contact Info) Description 04/23/2007 Outpatient Historical [facility] Social History Tobacco Use Types Packs/Day Years Used Date Smoking Tobacco: Never Assessed Comments Unknown Sex and Gender Information Value Date Recorded Sex Assigned at Not on file Legal Sex Female 3:43 AM CONTACT WORKER Gender Identity Not on file Sexual Orientation Not on file documented as of this encounter Plan of Treatment Not on file documented as of this encounter Visit Diagnoses Not on filedocumented in this encounter Care Teams Industrial Illuminating Engineer Relationship Specialty Start Date End Date Carlee Rossi MD PCP - General 11/17/05 documented as of this encounter
--- OUTSIDE RECORDS SUMMARY | 2025-09-23 17:45 | XMS_ITS | Encounter Summary ---
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
--- OUTSIDE RECORDS SUMMARY | 2025-09-23 17:45 | XMS_ITS | Encounter Summary ---
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
--- OUTSIDE RECORDS SUMMARY | 2025-09-23 17:45 | XMS_ITS | Encounter Summary ---
Author Organization [facility] Address [address] [place] [address] Care Team Providers Care Sinter Feeder Name Role Phone Carlee Rossi MD Primary Care Provid er Encounter Details Date Type Department Care Team (Latest Contact Info) Description 11/17/2005 Outpatient Historical [facility] Imaging Services [facility] [address] [place] [address] Jesús Oneal MD NO ADDRESS ON FILE EDEMA (Primary Dx) Social History Tobacco Use Types Packs/Day Years Used Date Smoking Tobacco: Never Assessed Comments Unknown Sex and Gender Information Value Date Recorded Sex Assigned at Not on file 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
--- OUTSIDE RECORDS SUMMARY | 2025-09-23 17:45 | XMS_ITS | Encounter Summary ---
Author Organization [facility] Address [address] [place] [address] Care Team Providers Care Industrial Automation Specialist Name Role Phone Carlee Rossi MD Primary Care Provid er Encounter Details Date Type Department Care Team (Latest Contact Info) Description 05/14/2007 Outpatient Historical [facility] Orthopedics- [address] [place] [address] Jesús Oneal MD NO ADDRESS ON FILE Pain in Joint, Shoulder Region (Primary Dx) Social History Tobacco Use Types Packs/Day Years Used Date Smoking Tobacco: Never Assessed Comments Unknown Sex and Gender Information Value Date Recorded Sex Assigned at Not on file Legal Sex Female 3:43 AM DOCUMENT IMAGE TECHNICIAN Gender Identity Not on file Sexual Orientation Not on file documented as of this encounter Plan of Treatment Not on file documented as of this encounter Visit Diagnoses Diagnosis Pain in joint, shoulder region- Primary documented in this encounter Care Teams Industrial Automation Specialist Relationship Specialty Start Date End Date Carlee Rossi MD PCP - General 11/17/05 documented as of this encounter
--- OUTSIDE RECORDS SUMMARY | 2025-09-23 17:45 | XMS_ITS | Encounter Summary ---
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
--- OUTSIDE RECORDS SUMMARY | 2025-09-23 17:45 | XMS_ITS | Encounter Summary ---
Author Organization [facility] Address [address] [place] [address] Care Team Providers Care Operators Teacher Name Role Phone Carlee Rossi MD Primary Care Provid er Encounter Details Date Type Department Care Team (Latest Contact Info) Description 11/22/2005 Outpatient Historical [facility] Orthopedics- [address] [place] [address] Jesús Oneal MD NO ADDRESS ON FILE SHOULDER REGION DIS NEC (Primary Dx) Social History Tobacco Use Types Packs/Day Years Used Date Smoking Tobacco: Never Assessed Comments Unknown Sex and Gender Information Value Date Recorded Sex Assigned at Not on file Legal Sex Female 3:43 AM MANAGEMENT INFORMATION SYSTEMS DIRECTOR Gender Identity Not on file Sexual Orientation Not on file documented as of this encounter Plan of Treatment Not on file documented as of this encounter Visit Diagnoses Diagnosis Other affections of shoulder region, not elsewhere classified- Primary documented in this encounter Care Teams Operators Teacher Relationship Specialty Start Date End Date Carlee Rossi MD PCP - General 11/17/05 documented as of this encounter
--- OUTSIDE RECORDS SUMMARY | 2025-09-23 17:45 | XMS_ITS | Encounter Summary ---
Author Organization [facility] Address [address] [place] [address] Care Team Providers Care Paper Machine Tender Name Role Phone Carlee Rossi MD Primary Care Provid er Encounter Details Date Type Department Care Team (Latest Contact Info) Description 06/26/2005 Outpatient Historical 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
--- OUTSIDE RECORDS SUMMARY | 2025-09-23 17:45 | XMS_ITS | Encounter Summary ---
Author Organization [facility] Address [address] [place] [address] Care Team Providers Care Publications Inspector Name Role Phone Carlee Rossi MD Primary Care Provid er Encounter Details Date Type Department Care Team (Late st Contact Info) Description 03/23/2006 Outpatient Historical [facility] [place] [facility] [place] [place] [address] [facility] [address] [place] [phone] Carlee Rossi MD [address] 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
--- OUTSIDE RECORDS SUMMARY | 2025-09-23 17:45 | XMS_ITS | Encounter Summary ---
Author Organization [facility] Address [address] [place] [address] Care Team Providers Care Heddle Machine Operator Name Role Phone Carlee Rossi MD Primary Care Provid er Encounter Details Date Type Department Care Team (Latest Contact Info) Description 05/02/2007 Outpatient Historical [facility] Physical Therapy [address] [place] [address] Jesús Oneal MD NO ADDRESS ON FILE Other Physical Therapy (Primary Dx) Social History Tobacco Use Types Packs/Day Years Used Date Smoking Tobacco: Never Assessed Comments Unknown Sex and Gender Information Value Date Recorded Sex Assigned at Not on file 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
--- OUTSIDE RECORDS SUMMARY | 2025-09-23 17:45 | XMS_ITS | Encounter Summary ---
Author Organization [facility] Address [address] [place] [address] Care Team Providers Care Mobile Pet Groomer Name Role Phone Carlee Rossi MD Primary Care Provid er Encounter Details Date Type Department Care Team (Latest Contact Info) Description 02/06/2005 Outpatient Historical [facility] Occupational Medicine [facility] [address] [place] [phone] Jeff Bello MD NO ADDRESS ON FILE Routine medical exam (Primary Dx) Social History Tobacco Use Types Packs/Day Years Used Date Smoking Tobacco: Never Assessed Comments Unknown Sex and Gender Information Value Date Recorded Sex Assigned at Not on file 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
--- OUTSIDE RECORDS SUMMARY | 2025-09-23 17:45 | XMS_ITS | Encounter Summary ---
Author Organization [facility] Address [address] [place] [address] Care Team Providers Care Division Operations Manager Name Role Phone Carlee Rossi MD Primary Care Provid er Encounter Details Date Type Department Care Team (Latest Contact Info) Description 04/16/2006 Outpatient Historical [facility] [place] [address] [address] [address] [place] [phone] Carlee Rossi MD [address] [facility] [address] [place] [address] Cervicalgia (Primary Dx) Social History Tobacco Use Types Packs/Day Years Used Date Smoking Tobacco: Never Assessed Comments Unknown Sex and Gender Information Value Date Recorded Sex Assigned at Not on file Legal Sex Female 3:43 AM ENDOSCOPY TECH Gender Identity Not on file Sexual Orientation Not on file documented as of this encounter Plan of Treatment Not on file documented as of this encounter Visit Diagnoses Diagnosis Cervicalgia- Primary documented in this encounter Care Teams Division Operations Manager Relationship Specialty Start Date End Date Carlee Rossi MD PCP - General 11/17/05 documented as of this encounter
--- OUTSIDE RECORDS SUMMARY | 2025-09-23 17:45 | XMS_ITS | Encounter Summary ---
Author Organization [employer] [facility] Address [address] [place] [address] Care Team Providers Care Technical Sales Consultant Name Role Phone Carlee Rossi MD Primary Care Provid er Encounter Details Date Type Department Care Team (Late st Contact Info) Description 07/05/2006 Outpatient Historical [facility] Social History Tobacco Use Types Packs/Day Years Used Date Smoking Tobacco: Never Assessed Comments Unknown Sex and Gender Information Value Date Recorded Sex Assigned at Not on file Legal Sex Female 3:43 AM ARTIFICIAL BREEDING RANCH SUPERVISOR Gender Identity Not on file Sexual Orientation Not on file documented as of this encounter Plan of Treatment Not on file documented as of this encounter Visit Diagnoses Not on filedocumented in this encounter Care Teams Technical Sales Consultant Relationship Specialty Start Date End Date Carlee Rossi MD PCP - General 11/17/05 documented as of this encounter
--- OUTSIDE RECORDS SUMMARY | 2025-09-23 17:45 | XMS_ITS | Continuity of Care Document ---
Author Organization EZEQUIEL - Donnie Larson [facility] Shantel Enciso [facility] ([facility]) Address [address] [place] [address] Care Team Providers Care Acetylene Torch Burner Name Role Phone LUIS MOREIRA Primary Care Provider Assessment Encounter Date Assessment Date Assessment LastModified by Organization Details LastModified Time 09/21/2025 09/21/2025 65-year-old fema le with a history of chest pain presenting for evaluation. Episodes described as squeezing central chest pain without burning sensation, suggesting esophageal spasm versus coronary artery disease. The patient has a history of PSVT with prior stress testing 7 years ago and vascular risk factors. A stress echocardiogram is being planned with head coach input on medication management pre-test. Differential includes esophageal origin, necessitating possible exclusion of cardiac etiology. Diarrhea: - Considering potential association with chest pain. - Advised to monitor and record episodes for detailed stool characteristics and reaction to medications. - Additional gastroenterological evaluation to be determined based on the continuation or escalation of symptoms. [email or web address] Not available 09/21/2025 12:05:42 Plan of Treatment Reminders Order Date Submit Date Provider Last Modified By Organization Details Last Modified Time Details Appointments None recorded. Lab None recorded. Referral None recorded. Procedures None recorded. Surgeries None recorded. Imaging electrocard iogram 2024 025 ANGEL [facility] ([facility]), [address] [place], [address], 09:57:13 stress echocardiog walt 2024 025 [facility], [address] [place] [address], [address], 09:05:30 Medication Orders None recorded. Patient TargetsNo targets recorded. Patient Instructions Encounter Date Encounter Id Patient Instructions Last Modified By Organization Details Last Modified Time 09/21/2025 [id number] - Proceed for EK G as directed before leaving. - Follow up with Dr. Brown to discuss stress echocardiogram and medication adjustments. - Keep a diary of chest pain occurrences and bowel movements, noting frequency and characteristics. - Discontinue Metoprolol the day before the stress echocardiogram based on Dr. Brown s guidance. - Alert our office immediately if experiences severe chest pain, shortness of breath, or any new or worsening symptoms. [email or web address] Not available 09/21/2025 12:05:45 Upon evaluating the recurrent chest pain episodes reported by the patient, I discussed differential diagnoses including esophageal spasm versus cardiac origin due to her history of PSVT and existing carotid atherosclerosis. The necessity of ruling out coronary artery disease via a stress echocardiogram was highlighted, emphasizing temporary cessation of Metoprolol under Dr. Brown's advisement. Diarrhea episodes were considered for possible correlation but require further evaluation if symptoms persist after BOTAMAX initiation. An EKG was performed with potential follow-up as indicated by results. I ensured comprehensive discussion on benefits and risks of testing and monitoring, prioritizing cardiac exclusion while considering esophageal factors. [email or web address] Not available 09/21/2025 12:05:45 Reason for Referral None Reported. Results Created Date Observation Date Name Description Value Unit Range Abnormal Flag Note LastModifiedBy Organization Detail LastModifiedTime 08/26/20 25 08/27/2025 MEASL ES, MUMPS , AND RUBEL LA (MMR) AB (IGG) PANEL , IMMUN E STATU S measles Ab (IgG), immune status <13.50 AU/mL low AU/mL Inter preta tion ----- ----- ----- ---- <13.5 0 Not consi stent with immun ity 13.50 -16.4 9 Equiv ocal >16.4 9 Consi stent with immun ity The prese nce of measl es IgG sugge sts immun izati on or past or curre nt infec tion with measl es virus . For addit ional infor yehuda ford e refer to http: //garcia French stDia gnost ics.c om/fa q/FAQ 162 (This link is being provi ded for infor victor manuel broussard/ gail khano ses only. ) Not Available [facility] [address] [address] [place], [address], 08/27/2025 09:09:12 08/26/2008/27/2025 MEASL ES, MUMPS , AND RUBEL LA (MMR) AB (IGG) PANEL , IMMUN E STATU S mumps virus Ab (IgG), immune status 91.80 AU/mL normal AU/mL Inter preta tion ----- -- ----- ----- ----- - <9.00 Not consi stent with immun ity 9.00- 10.99 Equiv ocal >10.9 9 Consi stent with immun ity The prese nce of mumps IgG antib rober sugge sts immun izati on or past or curre nt infec tion with mumps virus . Not Available [facility] [address] [address] [place], [address], 08/27/2025 09:09:12 08/26/2008/27/2025 MEASL ES, MUMPS , AND RUBEL LA (MMR) AB (IGG) PANEL , IMMUN E STATU S rubella Ab (IgG), immune status 5.25 index normal Index Inter preta tion ----- ----- ----- ---- <0.90 Not consi stent with immun ity 0.90- 0.99 Equiv ocal > or = 1.00 Consi stent with immun ity The prese nce of rubel la IgG antib rober sugge sts immun izati on or past or curre nt infec tion with rubel la virus . Not Available [facility] [address] [address] [place], [address], 08/27/2025 09:09:12 09/21/2009/21/2025 elect rocar diogr am No observ ation record ed. [facility] ([facility]) [address] [place] [address], [phone], 09/22/2025 14:48:28 09/22/20 25 09/21/2025 elect rocar diogr am No observ ation record ed. [facility] ([facility]) [address] [place] [address], [phone], 09/23/2025 09:06:36 09/22/20 25 09/21/2025 elect rocar diogr am No observ ation record ed. [facility] ([facility]) [address] [place] [address], [phone], 09/23/2025 10:04:50 Result Notes None recorded. Problems Name Problem SNOMED Code Status Onset Date Resolution Date Notes Provider Name and Address Organization Details Recorded Time Vocal cord paralysis 865833725 Active 2023 Luis Moreira MD [address] [place] [address], [phone], [facility] 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 4 12:32:06 Raynaud's disease 759586627 Active 2023 Luis Moreira MD [address] [place] [address], [phone], [facility] 4 12:32:18 Seizure disorder 772218909 Active 2023 Luis Moreira MD [address] [place] [address], [address], [facility] 4 12:33:11 Pain of left shoulder joint 4249600142578 9109 Active 2023 Luis Moreira MD [address] [place] [address], [address] [place] [address] 5, [facility] 4 09:43:34 Dysfunction of bilateral eustachian tubes 0761535012084 100 Active 2023 Luis Moreira MD [address] [place] [address] 5, [facility] 4 10:43:11 Nausea 385519896 Active 2023 Luis Moreira MD [address] [place] [address] 5, [facility] 4 10:36:39 Moderate dehydration 4294449499443 Active 2023 Luis Moreira MD [address] [place] [address] 5, [facility] 4 10:36:45 Acute upper respiratory infection 46674241 Active 2023 Luis Moreira MD [address] [place] [address] 5, [facility] 4 10:36:51 Acute bacterial bronchitis 753187678 Active 2023 Luis Moreira MD [address] [place] [address] 5, [facility] 4 11:54:20 Pain of knee region 9316391995 Active 2024 Luis Moreira MD [address] [place] [address] 5, [facility] 5 12:36:40 Polyneuropa thy 72175880 Active 2024 Luis Moreira MD [address] [place] [address], [phone], [facility] 16:37:05 Osteoporosi s 33326290 Active 2024 Luis Moreira MD [address] [place] [address], [phone], [facility] 16:45:17 Migraine 71615290 Active 2024 Luis Moreira MD [address] [place] [address], [address], [facility] 16:54:05 Bilateral atheroscler osis of carotid arteries 5978465266686 04 Active 2024 Luis Moreira MD [address] [place] [address], [address], [facility] 12:03:56 Mixed hyperlipide steven 136651802 Active 2024 Luis Moreira MD [address] [place] [address], [phone], [facility] 12:05:03 Vocal cord dysfunction 137665757 Active 2024 Luis Moreira MD [address] [place] [address], [address], [facility] 12:14:30 Chest pain 12491672 Active 2024 Luis Moreira MD [address] [place] [address], [address] [place] [address] 5, [facility] 12:01:00 Problem Notes None recorded. Procedures Surgical History Date Name Laterality Status Provider Name and Address Organization Details Recorded Time operation on shoulder joint completed Subha Marin [facility] 08/26/2025 11:49:04 excision of lipoma completed Subha [facility]/26[facility]2025 11:49:28 Tubal Ligation completed Subhanimisha Marin [facility], Shantel 08/26/2025 11:49:36 procedure on vocal cord completed [facility]/26[facility]2025 11:49:56 Imaging Results None recorded. Procedure Notes None recorded. Medical Equipment None Reported. Allergies Allergen ID Allergen Name Allergen Category Reaction Reaction Severity Criticality Documentation Date Start Date Code Code System Note Provider Name and Address Organization Details Recorded Time 422 Substance with sulfonami de structure and antibacte rial mechanism of action (substanc e) medicatio n Not available Not available Not available 02/04/2023 92046 8003 SNOMED [facility] 15:46:41 55254 sulfabenz amide medicatio n Not available Not available Not available 06/09/2023 24194 RxNorm Comme nt: Recor ded 01/23 8:19A M by Rod Bhardwaj Offic e Visit ; Donn grimaldo; Lei minaya ce: *; Reaso n: Drug aller gy; ; Not Available [facility] 3 02:28:29 87622 Tegretol medicatio n Not available Not available Not available 10/31/2024 9 RxNorm [facility] 4 10:27:52 Medications Name Sig Start Date Stop Date Status Note LastModified by Organization Details LastModified Time pilocarpi ne 5 mg tablet TAKE 1 TABLET BY MOUTH 3 TIMES DAILY. 04/11 completed Not Available Not Available Not Available atorvasta tin 20 mg tablet TAKE 1 TABLET BY MOUTH EVERY DAY active Not Available Not Available No t Available azithromy petros 250 mg tablet TAKE 2 TABLETS (500 MG) BY ORAL ROUTE ONCE DAILY FOR 1 DAY THEN 1 TABLET (250 MG) BY ORAL ROUTE ONCE DAILY FOR 4 DAYS 04/03 completed Not Available Not Available Not Available ondansetr on HCl 4 mg tablet Take 1 tablet 3 times a day by oral route as needed. 04/03 completed Not Available Not Available Not Available prednison e 20 mg tablet TAKE 1 TABLET BY MOUTH EVERY DAY 04/11 completed Not Available Not Available Not Available alendrona te 70 mg tablet Take 1 tablet every week by oral route. 2024 active Not Available Not Available Not Avai lable valproic acid 250 mg capsule TAKE 1 CAPSULE BY MOUTH IN THE MORNING THEN TAKE 2 CAPSULES BY MOUTH IN THE EVENING active Not Available Not Available No t Available tretinoin 0.05 % topical cream APPLY PEA-SIZE D AMOUNT TO FACE NIGHTLY 04/11 completed Not Available Not Available Not Available propranol ol 10 mg tablet 04/03 completed Not Available Not Available Not Available cephalexi n 500 mg capsule TAKE 1 CAPSULE BY MOUTH TWICE A DAY 04/11 completed Not Available Not Available Not Available cevimelin e 30 mg capsule TAKE 1 CAPSULE BY MOUTH 3 TIMES DAILY. 04/11 completed Not Available Not Available Not Available flecainid e 50 mg tablet TAKE 1 TABLET BY MOUTH EVERY 12 HOURS active Not Available Not Available No t Available omeprazol e 20 mg capsule,d elayed release TAKE 1 CAPSULE BY MOUTH EVERY DAY 04/11 completed Not Available Not Available Not Available sodium chloride 0.9 % intraveno us solution Inject 1000 mL by intraven ous route. 04/03 completed Not Available Not Available Not Available metoprolo l succinate ER 25 mg tablet,ex tended release 24 hr TAKE 1 TABLET BY MOUTH EVERY DAY active Not Available Not Available No t Available methylpre dnisolone 4 mg tablets in a dose pack TAKE 6 TABLETS ON DAY 1 DIRECTED ON PACKAGE AND DECREASE BY 1 TAB EACH DAY FOR A TOTAL OF 6 DAYS 04/11 completed Not Available Not Available Not Available fluticaso ne propionat e 50 mcg/actua tion nasal spray,danyell pension INSTILL 2 SPRAYS IN EACH NOSTRIL EVERY DAY 2023 active Not Available Not Available Not Avai lable ciclopiro x 0.77 % topical cream APPLY ENOUGH TO COVER TOPICALL Y TO FACE AND EARS TWICE DAILY FOR 1 WK, THEN 2-3 X WEEKLY NEEDED 04/11 completed Not Available Not Available Not Available nitrofura ntoin monohydra te/macroc rystals 100 mg capsule TAKE 1 CAPSULE BY MOUTH 2 TIMES DAILY FOR 5 DAYS. 04/11 completed Not Available Not Available Not Available metoprolo l tartrate daily 04/11 completed 0; Recorded 01/24/20 8:19AM by Jim Bhardwaj, Office Visit; Not Available Not Available Not Available flecainid e two times daily 04/11 completed 0; Recorded 01/24/20 8:19AM by Jim Bhardwaj, Office Visit; Not Available Not Available Not Available fluticaso ne propion-s almeterol daily 04/11 completed 0; Recorded 01/24/20 8:19AM by Jim Bhardwaj, Office Visit; Not Available Not Available Not Available Calcium with Vitamin D active Not Available Not Available No t Available Vagifem 10 mcg vaginal tablet INSERT 1 TABLET TWICE A WEEK BY VAGINAL ROUTE DIRECTED FOR 30 DAYS. 04/11 completed Not Available Not Available Not Available D3-2000 09/21 completed Not Available Not Available Not Available Restasis MultiDose 0.05 % eye drops APPLY 1 DROP INTO BOTH EYES TWICE DAILY active Not Available Not Available No t Available Vitals Date Recorded Body height Body mass index (BMI) Body weight Body temperature Oxygen saturation Oxygen saturation in Arterial blood by Pulse oximetry Heart rate Systolic And Diastolic Provider Name and Address Organization Details Last Updated DateTime 157.48 cm 22.3 kg/m2 49240.2 7 g 97.2 [degF] 98 % 98 % 75 /min 110/76 mm[Hg] [facility] 11:42:06 Social History Question Answer Notes LastModified by Organizat ion Details LastModified Time Tobacco Smoking Status Never Smoker [facility] 04/03/2025 12:24:26 What Is Your Level Of Caffeine Consumption? Moderate Information not available 04/03/2025 Do You Or Have You Ever Used Marijuana? Never Used [email or web address] Information not available 08/26/2025 What Was The Date Of Your Most Recent Tobacco Screening? 09/21/2025 Information not available 09/21/2025 Sex: Unknown Functional Status Question Answer Note LastModified by Organizat ion Details LastModified Time Do you use any illicit or recreational drugs? No Information not available 04/03/2025 What is your level of alcohol consumption? None [email or web address] Information not available 04/03/2025 Mental Status None recorded. Family History Nothing Reported. Medical History No medical history recorded. Gynecological HistoryNo gynecological history recorded. Obstetrics History GPAL:G 0 P 0 0 0 0 Immunizations Vaccine Type Date Status Note Provider Nam e and Address Organization Details Recorded Time Influenza, split virus, quadrivalent, PF 4 completed Not Available [facility] 09/21/2025 11:39:01 Influenza, split virus, quadrivalent, PF 6 completed Not Available [facility] 09/21/2025 11:39:01 Influenza, split virus, quadrivalent, PF 7 completed Not Available [facility] 09/21/2025 11:39:01 Influenza, split virus, quadrivalent, PF 8 completed Not Available [facility] 09/21/2025 11:39:01 zoster recombinant 9 completed Not Available [facility] 09/21/2025 11:39:01 zoster recombinant 0 completed Not Available [facility] 09/21/2025 11:39:01 COVID-19, mRNA, LNP-S, PF, 100 mcg/0.5mL dose or 50 mcg/0.25mL dose 1 completed Not Available [facility] 09/21/2025 11:39:01 COVID-19, mRNA, LNP-S, PF, 100 mcg/0.5mL dose or 50 mcg/0.25mL dose 1 completed Not Available [facility] 09/21/2025 11:39:01 Influenza, split virus, quadrivalent, PF 2 completed Not Available [facility] 09/21/2025 11:39:01 Influenza, MDCK, quadrivalent, PF 3 completed Not Available [facility] 09/21/2025 11:39:01 Influenza, adjuvanted, trivalent, PF 5 completed Not Available [facility] 09/21/2025 11:39:01 Pneumococcal conjugate PCV20, polysaccharide [id number] conjugate, adjuvant, PF 4 completed Luis Moreira MD [address] [place], [address], [facility] 04/13/2024 09:40:24 Tdap 4 completed Luis Moreira MD [address] [place], [address], [facility] 04/13/2024 09:40:24 Past Encounters Encounter ID Performer Location Encounter Start Date Encounter Closed Date Diagnosis/Indication Diagnosis SNOMED-CT Code Diagnosis ICD10 Code Diagnosis IMO Codes Diagnosis Note [id number] Luis Moreira MD [facility] ([facility]) [address] [place] [phone] 08/26/2025 11:39:11 08/26/2025 12:25:53 Bilateral atherosclerosis of carotid arteries 4398356853 91457 I65.23 7609820 - Initiate statin therapy; routine follow-up as required. Mixed hyperlipidemia 267 660201 E78.2 69125 - Start statin treatment; benefits discussed. Gastroesop hageal reflux disease 194540973 K21.9 - Pepcid recommende d; dietary adjustment s advised. Osteoporosis 34505374 M8 1.0 - Plan to start Fosamax; supplement calcium and vitamin D. Vocal cord dysfunction 454770024 J38.3 - following with ENT Counseling 996610965 Z71 .85 32111714 - patient concerned about measles immunity and would like it checked. [id number] Luis Moreira MD [facility] ([facility]) [address] [place] [address] 09/21/2025 11:37:34 09/21/2025 12:46:01 Chest pain 47278827 R07.9 98636321 - EKG pending review. EKG: HR 57, sinus bradycardi a...possib le old anterior infarct - Plan for stress echocardio gram, requiring cardiology consultati on regarding medication management , specifical ly cessation of Metoprolol .- Differenti als include esophageal spasms; ensured discussion regarding investigat ions necessary to exclude cardiac-or igin pain.- Patient instructed to monitor and report any worsening pain or additional symptoms.- Follow-up required with cardiology under Dr. Brown s care for citlali mueller evaluation . Health Concerns Section Related Observation LastModified by Organization Detai ls LastModified Time None Recorded Concern Status LastModified by Organization Details LastModified Time None Recorded Payers Encounter Date Sequence Insurance Name Policy Number Policy Cotton Covered Member ID Cotton Member ID Guarantor Name 09/21/2025 1 [facility] (MEDICARE REPLACEMENT/ ADVANTAGE - PPO) [id number] Terri Suarezlain [id number] Terri Leobardo Notes Date Note Type Note Provider Name and Address Organization Details Recorded Time 09/21/2025 text/html The patient is a 65-year-old female presenting with chest pain. She describes an episode occurring at midnight on Sunday characterized by squeezing pain at the center of the chest, rated at 5/10, which radiated to her back and persisted for two hours. She reports experiencing three total episodes, including this one, and occasional brief sharp chest pains subsequently. She noted having several diarrhea episodes, considering a potential relation to chest discomfort. A similar episode was discussed during her last appointment. In the past, she considered heartburn as a possible cause, as relief was obtained with Tums. There was no burning sensation noted. She has had a prior stress test several years ago. Her medication regime has included intermittent proton pump inhibitor use, which she had not taken consistently recently, and the initiation of Botamax prior to the last aforementioned episode. - Labs and Tests: Order for an EKG Luis Moreira MD [address] [place] [address], [phone], [facility] 09/21/2025 17:28:41 OBGyn Episode No OBEpisode recorded.
--- OUTSIDE RECORDS SUMMARY | 2025-09-23 17:45 | XMS_ITS | Encounter Summary ---
Author Organization [facility] Address [address] [place] [address] Care Team Providers Care Patcher Bowling Ball Name Role Phone Carlee Rossi MD Primary Care Provid er Encounter Details Date Type Department Care Team (Latest Contact Info) Description 05/10/2005 Outpatient Historical [facility] [address] [place] 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
--- OUTSIDE RECORDS SUMMARY | 2025-09-23 17:45 | XMS_ITS | Encounter Summary ---
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
--- OUTSIDE RECORDS SUMMARY | 2025-09-23 17:45 | XMS_ITS | Encounter Summary ---
Author Organization [facility] Address [address] [place] [address] Care Team Providers Care Filter Cleaner Name Role Phone Carlee Rossi MD Primary Care Provid er Encounter Details Date Type Department Care Team (Latest Contact Info) Description 05/23/2007 Outpatient Historical [facility] 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
--- OUTSIDE RECORDS SUMMARY | 2025-09-23 17:45 | XMS_ITS | Encounter Summary ---
Author Organization [facility] Address [address] [place] [address] Care Team Providers Care Patient Access Representative Name Role Phone Carlee Rossi MD Primary Care Provid er Encounter Details Date Type Department Care Team (Latest Contact Info) Description 05/22/2007 Outpatient Historical [place] [facility] ([facility] Internal Medicine- [place] [address] [facility] [address] [place] [phone] Carlee Rossi MD [address] [place] [address] Acute Sinusitis, Unspecified (Primary Dx); Unspecified Visual Loss Social History Tobacco Use Types Packs/Day Years Used Date Smoking Tobacco: Never Assessed Comments Unknown Sex and Gender Information Value Date Recorded Sex Assigned at Not on file 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
--- OUTSIDE RECORDS SUMMARY | 2025-09-23 17:45 | XMS_ITS | Encounter Summary ---
Author Organization [facility] Address [address] [place] [address] Care Team Providers Care Furnace Operator Oil Or Gas Name Role Phone Carlee Rossi MD Primary Care Provid er Encounter Details Date Type Department Care Team (Late st Contact Info) Description 11/21/2005 Outpatient [facility] Ear, Nose and Throat [address] [place] [phone] Rafi Yost MD [facility] [place] [phone] VOICE DISTURBANCE NEC (Primary Dx); CHRONIC LARYNGITIS Social History Tobacco Use Types Packs/Day Years Used Date Smoking Tobacco: Never Assessed Comments Unknown Sex and Gender Information Value Date Recorded Sex Assigned at Not on file Legal Sex Female 3:43 AM CUTTER ALUMINUM SHEET Gender Identity Not on file Sexual Orientation Not on file documented as of this encounter Plan of Treatment Not on file documented as of this encounter Visit Diagnoses Diagnosis Other voice and resonance disorders- Primary Chronic laryngitis documented in this encounter Care Teams Furnace Operator Oil Or Gas Relationship Specialty Start Date End Date Carlee Rossi MD PCP - General 11/17/05 documented as of this encounter
--- OUTSIDE RECORDS SUMMARY | 2025-09-23 17:46 | XMS_ITS | Encounter Summary ---
Author Organization [facility] Address [address] [place] [address] Care Team Providers Care Hematologist Name Role Phone Carlee Rossi MD Primary Care Provid er Encounter Details Date Type Department Care Team (Late st Contact Info) Description 05/28/2007 Outpatient Historical [facility] Ear, Nose and Throat [address] [place] [phone] Rafi Yost MD [facility] [place] [address] Other Voice Disturbance (Primary Dx); Unspecified Paralysis of Vocal Cords or Larynx; Unspecified Tinnitus Social History Tobacco Use Types Packs/Day Years Used Date Smoking Tobacco: Never Assessed Comments Unknown Sex and Gender Information Value Date Recorded Sex Assigned at Not on file Legal Sex Female 3:43 AM LINE CLOSER Gender Identity Not on file Sexual Orientation Not on file documented as of this encounter Plan of Treatment Not on file documented as of this encounter Visit Diagnoses Diagnosis Other voice and resonance disorders- Primary Paralysis of vocal cords or larynx, unspecified Unspecified tinnitus documented in this encounter Care Teams Hematologist Relationship Specialty Start Date End Date Carlee Rossi MD PCP - General 11/17/05 documented as of this encounter
--- OUTSIDE RECORDS SUMMARY | 2025-09-23 17:46 | XMS_ITS | Encounter Summary ---
Author Organization [employer] [facility] Address [address] [place] [address] Care Team Providers Care Feed Mill Operator Name Role Phone Carlee Rossi MD Primary Care Provid er Encounter Details Date Type Department Care Team (Late st Contact Info) Description 04/11/2007 Outpatient Historical [facility] Social History Tobacco Use Types Packs/Day Years Used Date Smoking Tobacco: Never Assessed Comments Unknown Sex and Gender Information Value Date Recorded Sex Assigned at Not on file Legal Sex Female 3:43 AM MULE DRIVER Gender Identity Not on file Sexual Orientation Not on file documented as of this encounter Plan of Treatment Not on file documented as of this encounter Visit Diagnoses Not on filedocumented in this encounter Care Teams Feed Mill Operator Relationship Specialty Start Date End Date Carlee Rossi MD PCP - General 11/17/05 documented as of this encounter
--- OUTSIDE RECORDS SUMMARY | 2025-09-23 17:46 | XMS_ITS | Encounter Summary ---
Author Organization [employer] [facility] Address [address] [place] [address] Care Team Providers Care Construction Project Engineer Name Role Phone Carlee Rossi MD Primary Care Provid er Encounter Details Date Type Department Care Team (Late st Contact Info) Description 08/15/2005 Outpatient Historical [facility] Social History Tobacco Use Types Packs/Day Years Used Date Smoking Tobacco: Never Assessed Comments Unknown Sex and Gender Information Value Date Recorded Sex Assigned at Not on file Legal Sex Female 3:43 AM VOCATIONAL INSTRUCTOR Gender Identity Not on file Sexual Orientation Not on file documented as of this encounter Plan of Treatment Not on file documented as of this encounter Visit Diagnoses Not on filedocumented in this encounter Care Teams Construction Project Engineer Relationship Specialty Start Date End Date Carlee Rosis MD PCP - General 11/17/05 documented as of this encounter
--- OUTSIDE RECORDS SUMMARY | 2025-09-23 17:46 | XMS_ITS | Encounter Summary ---
Author Organization [facility] Address [address] [place] [address] Care Team Providers Care It Service Technician Name Role Phone Carlee Rossi MD Primary Care Provid er Encounter Details Date Type Department Care Team (Latest Contact Info) Description 12/19/2006 Outpatient Historical [facility] Operating [address] [place] [address] Rafi Yost MD [address] [place] [phone] Benign Neoplasm of Larynx (Primary Dx) Social History Tobacco Use Types Packs/Day Years Used Date Smoking Tobacco: Never Assessed Comments Unknown Sex and Gender Information Value Date Recorded Sex Assigned at Not on file Legal Sex Female 3:43 AM STEWARD/STEWARDESS BATH Gender Identity Not on file Sexual Orientation Not on file documented as of this encounter Plan of Treatment Not on file documented as of this encounter Visit Diagnoses Diagnosis Benign neoplasm of larynx- Primary documented in this encounter Care Teams It Service Technician Relationship Specialty Start Date End Date Carlee Rossi MD PCP - General 11/17/05 documented as of this encounter
--- OUTSIDE RECORDS SUMMARY | 2025-09-23 17:46 | XMS_ITS | Encounter Summary ---
Author Organization [employer] [facility] Address [address] [place] [address] Care Team Providers Care Convention Planner Name Role Phone Carlee Rossi MD Primary Care Provid er Encounter Details Date Type Department Care Team (Late st Contact Info) Description 08/29/2005 Outpatient Historical [facility] Social History Tobacco Use Types Packs/Day Years Used Date Smoking Tobacco: Never Assessed Comments Unknown Sex and Gender Information Value Date Recorded Sex Assigned at Not on file Legal Sex Female 3:43 AM PURSE SEINER Gender Identity Not on file Sexual Orientation Not on file documented as of this encounter Plan of Treatment Not on file documented as of this encounter Visit Diagnoses Not on filedocumented in this encounter Care Teams Convention Planner Relationship Specialty Start Date End Date Carlee Rossi MD PCP - General 11/17/05 documented as of this encounter
--- OUTSIDE RECORDS SUMMARY | 2025-09-23 17:46 | XMS_ITS | Encounter Summary ---
Author Organization [facility] Address [address] [place] [address] Care Team Providers Care Publications Inspector Name Role Phone Carlee Rossi MD Primary Care Provid er Encounter Details Date Type Department Care Team (Latest Contact Info) Description 11/21/2006 Outpatient [facility] Ear, Nose and Throat E [place] [address] 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 Social History Tobacco Use Types Packs/Day Years Used Date Smoking Tobacco: Never Assessed Comments Unknown Sex and Gender Information Value Date Recorded Sex Assigned at Not on file Legal Sex Female 3:43 AM SOAKERS SUPERVISOR Gender Identity Not on file Sexual Orientation Not on file documented as of this encounter Plan of Treatment Not on file documented as of this encounter Visit Diagnoses Diagnosis Other voice and resonance disorders- Primary Paralysis of vocal cords or larynx, unspecified documented in this encounter Care Teams Publications Inspector Relationship Specialty Start Date End Date Carlee Rossi MD PCP - General 11/17/05 documented as of this encounter
--- OUTSIDE RECORDS SUMMARY | 2025-09-23 17:46 | XMS_ITS | Encounter Summary ---
Author Organization [facility] Address [address] [place] [address] Care Team Providers Care Shochet Name Role Phone Carlee Rossi MD Primary Care Provid er Encounter Details Date Type Department Care Team (Latest Contact Info) Description 09/06/2005 Outpatient Historical [facility] Ear, Nose and Throat [address] [place] [address] [place] [address] [place] [phone] Audi Elias MD [address] [place] [address] VOICE DISTURBANCE NEC (Primary Dx); CHRONIC LARYNGITIS Social History Tobacco Use Types Packs/Day Years Used Date Smoking Tobacco: Never Assessed Comments Unknown Sex and Gender Information Value Date Recorded Sex Assigned at Not on file Legal Sex Female 3:43 AM CP BLEACHER OPERATOR Gender Identity Not on file Sexual Orientation Not on file documented as of this encounter Plan of Treatment Not on file documented as of this encounter Visit Diagnoses Diagnosis Other voice and resonance disorders- Primary Chronic laryngitis documented in this encounter Care Teams Shochet Relationship Specialty Start Date End Date Carlee Rossi MD PCP - General 11/17/05 documented as of this encounter
--- OUTSIDE RECORDS SUMMARY | 2025-09-23 17:46 | XMS_ITS | Encounter Summary ---
Author Organization [facility] Address [address] [place] [address] Care Team Providers Care Poultry Hatchery Manager Name Role Phone Carlee Rossi MD Primary Care Provid er Encounter Details Date Type Department Care Team (Late st Contact Info) Description 01/10/2007 Outpatient Historical [facility] Ear, Nose and Throat [address] [place] [address] [place] [place] [phone] Rafi Yost MD [facility] [place] [address] Throat Pain (Primary Dx); Other Voice Disturbance; Other Diseases of Vocal Cords; Follow-Up Examination, Following Unspecified Surgery Social History Tobacco Use Types Packs/Day Years Used Date Smoking Tobacco: Never Assessed Comments Unknown Sex and Gender Information Value Date Recorded Sex Assigned at Not on file Legal Sex Female 3:43 AM KICKBOXING INSTRUCTOR Gender Identity Not on file Sexual Orientation Not on file documented as of this encounter Plan of Treatment Not on file documented as of this encounter Visit Diagnoses Diagnosis Throat pain- Primary Other voice and resonance disorders Other diseases of vocal cords Follow-up examination, following unspecified surgery documented in this encounter Care Teams Poultry Hatchery Manager Relationship Specialty Start Date End Date Carlee Rossi MD PCP - General 11/17/05 documented as of this encounter
--- OUTSIDE RECORDS SUMMARY | 2025-09-23 17:46 | XMS_ITS | Encounter Summary ---
Author Organization [employer] [facility] Address [address] [place] [address] Care Team Providers Care Front Desk Admin Name Role Phone Carlee Rossi MD Primary Care Provid er Encounter Details Date Type Department Care Team (Late st Contact Info) Description 08/24/2005 Outpatient Historical [facility] Social History Tobacco Use Types Packs/Day Years Used Date Smoking Tobacco: Never Assessed Comments Unknown Sex and Gender Information Value Date Recorded Sex Assigned at Not on file Legal Sex Female 3:43 AM ACT ENGLISH TUTOR Gender Identity Not on file Sexual Orientation Not on file documented as of this encounter Plan of Treatment Not on file documented as of this encounter Visit Diagnoses Not on filedocumented in this encounter Care Teams Front Desk Admin Relationship Specialty Start Date End Date Carlee Rossi MD PCP - General 11/17/05 documented as of this encounter
--- OUTSIDE RECORDS SUMMARY | 2025-09-23 17:46 | XMS_ITS | Encounter Summary ---
Author Organization [facility] Address [address] [place] [address] Care Team Providers Care Activities Attendant Name Role Phone Carlee Rossi MD Primary Care Provid er Encounter Details Date Type Department Care Team (Late st Contact Info) Description 02/12/2014 Ancillary Orders [facility] Pre-Registration [place] CALL TO MAKE APPOINTMENT ONLY [address] [place] [address] Carlee Rossi MD [address] [place] [address] Social History Tobacco Use Types Packs/Day Years Used Date Smoking Tobacco: Never Smokeless Tobacco: Never Alcohol Use Standard Drinks/Week Comments No 0 (1 standard drink = 0.6 oz pur e alcohol) Comments No Sex and Gender Information Value Date Recorded Sex Assigned at Not on file Legal Sex Female 3:43 AM OPTICAL EFFECTS CAMERA OPERATOR Gender Identity Not on file Sexual Orientation Not on file Occupation Industry Job Start Date Job End Date Not on file Not on file Not on file Not on file documented as of this encounter Plan of Treatment Not on file documented as of this encounter Visit Diagnoses Not on filedocumented in this encounter Care Teams Activities Attendant Relationship Specialty Start Date End Date Carlee Rossi MD PCP - General 11/17/05 documented as of this encounter
--- OUTSIDE RECORDS SUMMARY | 2025-09-23 17:46 | XMS_ITS | Encounter Summary ---
Author Organization [facility] Address [address] [place] [address] Care Team Providers Care Buggy Man Name Role Phone Carlee Rossi MD Primary Care Provid er Encounter Details Date Type Department Care Team (Latest Contact Info) Description 01/29/2007 Outpatient Historical [facility] [address] [place] [address] Jesús Oneal MD NO ADDRESS ON FILE Supraspinatus (Muscle) (Tendon) Sprain and Strain (Primary Dx) Social History Tobacco Use Types Packs/Day Years Used Date Smoking Tobacco: Never Assessed Comments Unknown Sex and Gender Information Value Date Recorded Sex Assigned at Not on file Legal Sex Female 3:43 AM MANUFACTURING SALES REPRESENTATIVE Gender Identity Not on file Sexual Orientation Not on file documented as of this encounter Plan of Treatment Not on file documented as of this encounter Visit Diagnoses Diagnosis Supraspinatus (muscle) (tendon) sprain- Primary documented in this encounter Care Teams Buggy Man Relationship Specialty Start Date End Date Carlee Rossi MD PCP - General 11/17/05 documented as of this encounter
--- OUTSIDE RECORDS SUMMARY | 2025-09-23 17:46 | XMS_ITS | Encounter Summary ---
Author Organization [facility] Address [address] [place] [address] Care Team Providers Care Fish Cleaner Name Role Phone Carlee Rossi MD Primary Care Provid er Encounter Details Date Type Department Care Team (Late st Contact Info) Description 12/25/2006 Outpatient [facility] Ear, Nose and Throat [address] [place] [address] [place] [place] [phone] Rafi Yost MD [facility] [place] [phone] Follow-Up Examination, Following Unspecified Surgery (Primary Dx) Social History Tobacco Use Types Packs/Day Years Used Date Smoking Tobacco: Never Assessed Comments Unknown Sex and Gender Information Value Date Recorded Sex Assigned at Not on file Legal Sex Female 3:43 AM FIXED INCOME PORTFOLIO MANAGER Gender Identity Not on file Sexual Orientation Not on file documented as of this encounter Plan of Treatment Not on file documented as of this encounter Visit Diagnoses Diagnosis Follow-up examination, following unspecified surgery- Primary documented in this encounter Care Teams Fish Cleaner Relationship Specialty Start Date End Date Carlee Rossi MD PCP - General 11/17/05 documented as of this encounter
--- OUTSIDE RECORDS SUMMARY | 2025-09-23 17:46 | XMS_ITS | Encounter Summary ---
Author Organization [employer] [facility] Address [address] [place] [address] Care Team Providers Care Supervisor Sewer Maintenance Name Role Phone Carlee Rossi MD Primary Care Provid er Encounter Details Date Type Department Care Team (Late st Contact Info) Description 09/06/2005 Outpatient Historical [facility] Social History Tobacco Use Types Packs/Day Years Used Date Smoking Tobacco: Never Assessed Comments Unknown Sex and Gender Information Value Date Recorded Sex Assigned at Not on file Legal Sex Female 3:43 AM TOWER ERECTOR Gender Identity Not on file Sexual Orientation Not on file documented as of this encounter Plan of Treatment Not on file documented as of this encounter Visit Diagnoses Not on filedocumented in this encounter Care Teams Supervisor Sewer Maintenance Relationship Specialty Start Date End Date Carlee Rossi MD PCP - General 11/17/05 documented as of this encounter
--- OUTSIDE RECORDS SUMMARY | 2025-09-23 17:46 | XMS_ITS | Encounter Summary ---
Author Organization [facility] Address [address] [place] [address] Care Team Providers Care Communications Project Lead Name Role Phone Carlee Rossi MD Primary Care Provid er Encounter Details Date Type Department Care Team (Latest Contact Info) Description 08/09/2005 Outpatient [facility] Ear, Nose and Throat [address] [place] [address] [place] [address] [place] [phone] Audi Elias MD [address] [place] [address] SURGERY FOLLOWUP NOS (Primary Dx) Social History Tobacco Use Types Packs/Day Years Used Date Smoking Tobacco: Never Assessed Comments Unknown Sex and Gender Information Value Date Recorded Sex Assigned at Not on file Legal Sex Female 3:43 AM SOIL SCIENCE TEACHER Gender Identity Not on file Sexual Orientation Not on file documented as of this encounter Plan of Treatment Not on file documented as of this encounter Visit Diagnoses Diagnosis Follow-up examination, following unspecified surgery- Primary documented in this encounter Care Teams Communications Project Lead Relationship Specialty Start Date End Date Carlee Rossi MD PCP - General 11/17/05 documented as of this encounter
--- OUTSIDE RECORDS SUMMARY | 2025-09-23 17:46 | XMS_ITS | Encounter Summary ---
Author Organization [facility] Address [address] [place] [address] Care Team Providers Care Mechanical Engineering Draftsperson Name Role Phone Carlee Rossi MD Primary Care Provid er Encounter Details Date Type Department Care Team (Late st Contact Info) Description 12/04/2006 Outpatient Historical [facility] Ear, Nose and Throat [address] [place] [address] 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 Social History Tobacco Use Types Packs/Day Years Used Date Smoking Tobacco: Never Assessed Comments Unknown Sex and Gender Information Value Date Recorded Sex Assigned at Not on file Legal Sex Female 3:43 AM MEDICAL SALES SPECIALIST Gender Identity Not on file Sexual Orientation Not on file documented as of this encounter Plan of Treatment Not on file documented as of this encounter Visit Diagnoses Diagnosis Other voice and resonance disorders- Primary Other diseases of vocal cords Paralysis of vocal cords or larynx, unspecified documented in this encounter Care Teams Mechanical Engineering Draftsperson Relationship Specialty Start Date End Date Carlee Rossi MD PCP - General 11/17/05 documented as of this encounter
--- OUTSIDE RECORDS SUMMARY | 2025-09-23 17:46 | XMS_ITS | Encounter Summary ---
Author Organization [facility] Address [address] [place] [address] Care Team Providers Care Composing Room Machinist Name Role Phone Carlee Rossi MD Primary Care Provid er Reason for Referral * Outpatient Services (Routine) - Closed Specialty Diagnoses / Procedures Referred By Franchesca bergeron Referred To Contact Diagnoses Other screening mammogram Procedures MAMMO DIGITAL SCREEN BILAT Carlee Rossi MD [address] [facility] [address] [place] [address] Phone: tel: fax: [facility] Pre-Registration [place] CALL TO MAKE APPOINTMENT ONLY [address] [place] [address] Phone: tel: fax: Referral ID Status Reason Start Date Expiration Date Visits Re quested Visits Authorized [id number] Closed 02/14/2012 02/13/2013 1 1 Encounter Details Date Type Department Care Team (Latest Contact Info) Description 02/14/2012 Ancillary Orders [facility] Pre-Registration [place] CALL TO MAKE APPOINTMENT ONLY [address] [place] [address] Carlee Rossi MD [address] [facility] [address] [place] [phone] Other screening mammogram Social History Tobacco Use Types Packs/Day Years Used Date Smoking Tobacco: Never Alcohol Use Standard Drinks/Week Comments No 0 (1 standard drink = 0.6 oz pur e alcohol) Comments No Sex and Gender Information Value Date Recorded Sex Assigned at Not on file Legal Sex Female 3:43 AM STEP DOWN NURSE Gender Identity Not on file Sexual Orientation Not on file documented as of this encounter Plan of Treatment Not on file documented as of this encounter Results * MAMMO DIGITAL SCREEN BILAT (03/25/2012 8:28 AM CDT) Anatomical Region Laterality Modality Breast Bilateral Mammography Narrative 03/26/2012 1:16 PM CDT Bilateral Mammogram Reason for Exam: Screening Comparison: Comparison is made with the prior exam(s) dated 03/03/2010. Findings: Bilateral CC and MLO views were obtained. This examination was reviewed with the aid of a computer-aided detection system(CAD). The breast tissue is dense. No significant new findings since the prior mammogram(s). Procedure Note Norma Copeland MD - 03/26/2012 Bilateral Mammogram Reason for Exam: Screening Comparison: Comparison is made with the prior exam(s) dated 03/03/2010. Findings: Bilateral CC and MLO views were obtained. This examination was reviewed with the aid of a computer-aided detectionsystem(CAD). The breast tissue is dense. No significant new findings since the prior mammogram(s). Carlee Rossi MD MAMMO ORDERABLES Fin al Result documented in this encounter Visit Diagnoses Diagnosis Other screening mammogram Other screening mammogram documented in this encounter Care Teams Composing Room Machinist Relationship Specialty Start Date End Date Carlee Rossi MD PCP - General 11/17/05 documented as of this encounter
--- OUTSIDE RECORDS SUMMARY | 2025-09-23 17:46 | XMS_ITS | Encounter Summary ---
Author Organization [facility] Address [address] [place] [address] Care Team Providers Care Workers Compensation Specialist Name Role Phone Carlee Rossi MD Primary Care Provid er Encounter Details Date Type Department Care Team (Late st Contact Info) Description 09/14/2005 Outpatient Historical [facility] Physical Therapy [address] [place] [address] [place] [phone] Jesús Oneal MD NO ADDRESS ON FILE Social History Tobacco Use Types Packs/Day Years Used Date Smoking Tobacco: Never Assessed Comments Unknown Sex and Gender Information Value Date Recorded Sex Assigned at Not on file Legal Sex Female 3:43 AM DIRECTOR TRANSLATION Gender Identity Not on file Sexual Orientation Not on file documented as of this encounter Plan of Treatment Not on file documented as of this encounter Visit Diagnoses Not on filedocumented in this encounter Care Teams Workers Compensation Specialist Relationship Specialty Start Date End Date Carlee Rossi MD PCP - General 11/17/05 documented as of this encounter
--- OUTSIDE RECORDS SUMMARY | 2025-09-23 17:46 | XMS_ITS | Encounter Summary ---
Author Organization [facility] Address [address] [place] [address] Care Team Providers Care Fine Jewelry Sales Associate Name Role Phone Carlee Rossi MD Primary Care Provid er Encounter Details Date Type Department Care Team (Late st Contact Info) Description 08/10/2005 Outpatient Historical [facility] Social History Tobacco Use Types Packs/Day Years Used Date Smoking Tobacco: Never Assessed Comments Unknown Sex and Gender Information Value Date Recorded Sex Assigned at Not on file Legal Sex Female 3:43 AM FUEL RETROFITTING TECHNICIAN Gender Identity Not on file Sexual Orientation Not on file documented as of this encounter Plan of Treatment Not on file documented as of this encounter Visit Diagnoses Not on filedocumented in this encounter Care Teams Fine Jewelry Sales Associate Relationship Specialty Start Date End Date Carlee Rossi MD PCP - General 11/17/05 documented as of this encounter
--- OUTSIDE RECORDS SUMMARY | 2025-09-23 17:46 | XMS_ITS | Encounter Summary ---
Author Organization [facility] Address [address] [place] [address] Care Team Providers Care Shell Sieve Operator Name Role Phone Carlee Rossi MD Primary Care Provid er Reason for Referral * Outpatient Services (Routine) - Closed Specialty Diagnoses / Procedures Referred By Franchesca bergeron Referred To Contact Radiology Diagnoses Mastodynia Procedures MAMMO DIGITAL DIAG BILAT Carlee Rossi MD [address] [facility] [address] [place] [address] Phone: tel: fax: [facility] [address] [facility] [address] [place] [address] Phone: tel: fax: Referral ID Status Reason Start Date Expiration Date Visits Re quested Visits Authorized [id number] Closed 03/04/2014 04/04/2015 1 1 Encounter Details Date Type Department Care Team (Latest Contact Info) Description 03/04/2014 Ancillary Orders [facility] Pre-Registration [place] CALL TO MAKE APPOINTMENT ONLY [address] [place] [address] Carlee Rossi MD [address] [facility] [address] [place] [phone] Mastodynia (Primary Dx) Social History Tobacco Use Types Packs/Day Years Used Date Smoking Tobacco: Never Smokeless Tobacco: Never Alcohol Use Standard Drinks/Week Comments No 0 (1 standard drink = 0.6 oz pur e alcohol) Comments No Sex and Gender Information Value Date Recorded Sex Assigned at Not on file 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 Probable benign cysts bilaterally as described. 2. Probably benign calcifications left breast. RECOMMENDATION: Six month followup left diagnostic mammogram and bilateral breast ultrasound. Findings and recommendations discussed with the patient at the time of exam. Patient received the result and recommendation letter. DANN/bess 1520 PM - uploaded from [employer] - Narrative 05/26/2014 10:13 AM CDT BILATERAL DIAGNOSTIC MAMMOGRAM AND BILATERAL BREAST ULTRASOUND: REASON FOR EXAM: Several month history of inferior and scattered intermittent upper outer quadrant left breast pain and tenderness. Patient has no discrete palpable concern, stating that she has lumpy breasts. Previous premenstrual breast symptoms. On hormone replacement therapy. Significant caffeine intake. Prior left breast benign core biopsy, 2001, and benign excisional biopsy, 1998. FAMILY HX.-BREAST Ca: None. Colon cancer in maternal grandmother. IMAGING PERFORMED: Standard four view mammogram with bilateral XCC views, and left ML and CC spot magnification compression and right MLO and CC spot compression. Bilateral breast ultrasound. COMPARISON(S): 03/25/2012 and 03/03/2010. TISSUE COMPOSITION: Diffusely dense. MAMMOGRAPHIC FINDINGS: RIGHT BREAST: Subtle oval shaped focal asymmetry is confirmed in the right breast subareolar region. LEFT BREAST: Scattered obscured nodularity is seen in the 6 o'clock axis and the lateral periareolar regions. Diffusely scattered pinpoint punctate and slightly amorphous calcifications, with some clustering, is questionably increased from prior studies. Prior core biopsy clip. This digital mammogram was also analyzed by the Computer Aided Detection System (CAD), R2 ImageChecker, Version 8.3. ULTRASOUND FINDINGS: RIGHT BREAST: In the subareolar position, multiple benign simple and probably benign complicated cysts, less than 9 mm in maximum diameter, are seen, with one suspected to correlate with the mammographic concern. Mild ductal changes. No suspicious finding. LEFT BREAST: In the subareolar region, multiple less than 8 mm benign simple and probably benign complicated cysts are seen, one in the 6 o'clock axis believed to correlate with the mammographic finding. Probably benign complicated cysts in the 2 o'clock position 3 cm from the nipple and in the 4 o'clock position, 2 and 3 cm from the nipple. Procedure Note Audi Fenton MD - 05/26/2014 BILATERAL DIAGNOSTIC MAMMOGRAM AND BILATERAL BREAST ULTRASOUND: REASON FOR EXAM: Several month history of inferior and scattered intermittent upper outer quadrant left breast pain and tenderness. Patient has no discrete palpable concern, stating that she has lumpy breasts. Previous premenstrual breast symptoms. On hormone replacement therapy. Significant caffeine intake. Prior left breast benign core biopsy, 2001, and benign excisional biopsy, 1998. FAMILY HX.-BREAST Ca: None. Colon cancer in maternal grandmother. IMAGING PERFORMED: Standard four view mammogram with bilateral XCC views, and left ML and CC spot magnification compression and right MLO and CC spot compression. Bilateral breast ultrasound. COMPARISON(S): 03/25/2012 and 03/03/2010. TISSUE COMPOSITION: Diffusely dense. MAMMOGRAPHIC FINDINGS: RIGHT BREAST: Subtle oval shaped focal asymmetry is confirmed in the right breast subareolar region. LEFT BREAST: Scattered obscured nodularity is seen in the 6 o'clock axis and the lateral periareolar regions. Diffusely scattered pinpoint punctate and slightly amorphous calcifications, with some clustering, is questionably increased from prior studies. Prior core biopsy clip. This digital mammogram was also analyzed by the Computer Aided Detection System (CAD), R2 ImageGate2Playcker, Version 8.3. ULTRASOUND FINDINGS: RIGHT BREAST: In the subareolar position, multiple benign simple and probably benign complicated cysts, less than 9 mm in maximum diameter, are seen, with one suspected to correlate with the mammographic concern. Mild ductal changes. No suspicious finding. LEFT BREAST: In the subareolar region, multiple less than 8 mm benign simple and probably benign complicated cysts are seen, one in the 6 o'clock axis believed to correlate with the mammographic finding. Probably benign complicated cysts in the 2 o'clock position 3 cm from the nipple and in the 4 o'clock position, 2 and 3 cm from the nipple. IMPRESSION IMPRESSION: 1. Probable benign cysts bilaterally as described. 2. Probably benign calcifications left breast. RECOMMENDATION: Six month followup left diagnostic mammogram and bilateral breast ultrasound. Findings and recommendations discussed with the patient at the time of exam. Patient received the result and recommendation letter. DANN/bess 1520 PM - uploaded from [employer] - Carlee Rossi MD MAMMO ORDERABLES Fin al Result documented in this encounter Visit Diagnoses Diagnosis Mastodynia- Primary Mastodynia documented in this encounter Care Teams Shell Sieve Operator Relationship Specialty Start Date End Date Carlee Rossi MD PCP - General 11/17/05 documented as of this encounter
--- OUTSIDE RECORDS SUMMARY | 2025-09-23 17:46 | XMS_ITS | Encounter Summary ---
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
--- OUTSIDE RECORDS SUMMARY | 2025-09-23 17:46 | XMS_ITS | Encounter Summary ---
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
--- OUTSIDE RECORDS SUMMARY | 2025-09-23 17:46 | XMS_ITS | Encounter Summary ---
Author Organization [facility] Address [address] [place] [address] Care Team Providers Care Chairman Name Role Phone Carlee Rsosi MD Primary Care Provid er Encounter Details Date Type Department Care Team (Latest Contact Info) Description 03/20/2007 Outpatient Historical [facility] [address] [place] [phone] Rafi Yost MD [address] [place] [address] Other Specified Pre-Operative Examination (Primary Dx) Social History Tobacco Use Types Packs/Day Years Used Date Smoking Tobacco: Never Assessed Comments Unknown Sex and Gender Information Value Date Recorded Sex Assigned at Not on file Legal Sex Female 3:43 AM PREFITTER Gender Identity Not on file Sexual Orientation Not on file documented as of this encounter Plan of Treatment Not on file documented as of this encounter Procedures Procedure Name Priority Date/Time Associated Diagnosis Comments CBC WITH DIFFERENTIAL Routine 03/20/2007 12:18 PM CDT HCG QUANTITATIVE, BLOOD Routine 03/20/2007 12:18 PM CDT documented in this encounter Results * BETA HCG QUANTITATIVE, BLOOD (03/20/2007 12:18 PM CDT) CHORIONIC GONADOTROPIN, TOTAL <2.0 0.0 - 10.0 mlU/ML INTERFACE SYSTEM Comment: Total HCG levels between 10 mIU/mL and 25 mIU/mL may be indicative of early but need to be correlated with other clinical findings. HCG ranges during normal , as reported by the demolition worker, are summarized as follows: Gestational Age Expected hCG Values (mIU/ml) 0.2-1 Weeks 5 - 50 1-2 Weeks 50 - 500 2-3 Weeks 100 - 5,000 3-4 Weeks 1,000 - 50,000 5-6 Weeks 10,000 - 100,000 6-8 Weeks 15,000 - 200,000 2-3 Months 10,000 - 100,000 03/20/2007 12:1 8 PM CDT us A Blayne Yost MD CHEMISTRY ORDERABLES Edited INTERFACE SYSTEM Refer to clinic/hospital department * (ABNORMAL) CBC WITH DIFFERENTIAL (03/20/2007 12:18 PM CDT) WBC 5.0 4.5 - 11.0 K/ul INTERFACE SYSTEM RBC 4.10(L) 4.20 - 5.40 Mil/ul INTERFACE SYSTEM HEMOGLOBIN 12.0 12.0 - 16.0 g/dL INTERFACE SYSTEM HEMATOCRIT 35.9(L) 36.0 - 46.0 % INTERFACE SYSTEM MCV 87.6 84.0 - 103.0 Fl INTERFACE SYSTEM MCH 29.3 27.0 - 34.0 pg INTERFACE SYSTEM MCHC 33.4 30.0 - 35.0 g/dL INTERFACE SYSTEM RDW 12.4 11.0 - 14.5 % INTERFACE SYSTEM PLATELETS 201 140 - 440 K/ul INTERFACE SYSTEM MPV 11.5 8.9 - 12.8 Fl INTERFACE SYSTEM NEUTROPHILS 57.8 42.2 - 75.2 % INTERFACE SYSTEM LYMPHOCYTES 27.8 24.0 - 44.0 % INTERFACE SYSTEM MONOCYTES 11.2(H) 2.0 - 10.0 % INTERFACE SYSTEM EOSINOPHILS 2.6 0.0 - 7.0 % INTERFACE SYSTEM BASOPHILS 0.6 0.0 - 1.0 % INTERFACE SYSTEM NEUTROPHIL ABSOLUTE 2.9 2.0 - 8.0 K/ul INTERFACE SYSTEM LYMPHOCYTE ABSOLUTE 1.4 1.2 - 4.0 K/ul INTERFACE SYSTEM MONOCYTE ABSOLUTE 0.6 0.1 - 0.6 K/ul INTERFACE SYSTEM EOSINOPHIL ABSOLUTE 0.1 0.0 - 0.7 K/ul INTERFACE SYSTEM BASOPHILS ABSOLUTE 0.0 0.0 - 0.2 K/ul INTERFACE SYSTEM 03/20/2007 12:1 8 PM CDT us A Blayne Yost MD HEMATOLOGY ORDERABLES Edite d INTERFACE SYSTEM Refer to clinic/hospital department documented in this encounter Visit Diagnoses Diagnosis Other specified pre-operative examination- Primary documented in this encounter Care Teams Chairman Relationship Specialty Start Date End Date Carlee Rossi MD PCP - General 11/17/05 documented as of this encounter
--- OUTSIDE RECORDS SUMMARY | 2025-09-23 17:46 | XMS_ITS | Encounter Summary ---
Author Organization [facility] Address [address] [place] [address] Care Team Providers Care Pin Drafter Name Role Phone Carlee Rossi MD Primary Care Provid er Encounter Details Date Type Department Care Team (Latest Contact Info) Description 01/01/2007 Outpatient Historical [facility] MECHANIC [address] [place] [address] Nadeem Raymundo MD NO ADDRESS ON FILE Excessive Menstruation (Primary Dx); Irregular Menstruation; Diffus Cystic Mastopathy Social History Tobacco Use Types Packs/Day Years Used Date Smoking Tobacco: Never Assessed Comments Unknown Sex and Gender Information Value Date Recorded Sex Assigned at Not on file Legal Sex Female 3:43 AM LIBERAL ARTS DEAN Gender Identity Not on file Sexual Orientation Not on file documented as of this encounter Plan of Treatment Not on file documented as of this encounter Visit Diagnoses Diagnosis Excessive menstruation- Primary Excessive or frequent menstruation Irregular menstruation Irregular menstrual cycle Diffus cystic mastopathy Diffuse cystic mastopathy documented in this encounter Care Teams Pin Drafter Relationship Specialty Start Date End Date Carlee Rossi MD PCP - General 11/17/05 documented as of this encounter
--- OUTSIDE RECORDS SUMMARY | 2025-09-23 17:46 | XMS_ITS | Encounter Summary ---
Author Organization [facility] Address [address] [place] [address] Care Team Providers Care Pbx Manager Name Role Phone Carlee Rossi MD Primary Care Provid er Encounter Details Date Type Department Care Team (Late st Contact Info) Description 02/24/2007 Outpatient Historical [facility] Urgent [facility] [place] [address] [place] [phone] Jv Jimenez, LOOM SETTER [address] [facility] [address] [address] Dizziness and Giddiness (Primary Dx); Acute Upper Respiratory Infections of Unspecified Site; Unspecified Cellulitis and Abscess of Toe Social History Tobacco Use Types Packs/Day Years Used Date Smoking Tobacco: Never Assessed Comments Unknown Sex and Gender Information Value Date Recorded Sex Assigned at Not on file 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
--- OUTSIDE RECORDS SUMMARY | 2025-09-23 17:46 | XMS_ITS | Encounter Summary ---
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
--- OUTSIDE RECORDS SUMMARY | 2025-09-23 17:46 | XMS_ITS | Encounter Summary ---
Author Organization [facility] Address [address] [place] [address] Care Team Providers Care Neurosurgeon Name Role Phone aCrlee Rossi MD Primary Care Provid er Encounter Details Date Type Department Care Team (Latest Contact Info) Description 09/28/2005 Outpatient Historical [facility] Internal Medicine- [place] [address] [address] [facility] [address] [place] [address] Carlee Rossi MD [address] [place] [address] ABNORMAL FINDINGS-LUNG FIELD (Primary Dx); CONVULSIONS NEC (CMS/HCC); HEADACHE; Vaccine for influenza Social History Tobacco Use Types Packs/Day Years [...] of this encounter Visit Diagnoses Diagnosis Nonspecific (abnormal) findings on radiological and other examination of lung field- Primary Other convulsions Headache(784.0) Headache Vaccine for influenza Need for prophylactic vaccination and inoculation against influenza documented in this encounter Care Teams Neurosurgeon Relationship Specialty Start Date End Date Carlee Rossi MD PCP - General 11/17/05 documented as of this encounter
--- OUTSIDE RECORDS SUMMARY | 2025-09-23 17:46 | XMS_ITS | Encounter Summary ---
Author Organization [facility] Address [address] [place] [address] Care Team Providers Care Motion Picture Film Examiner Name Role Phone Carlee Rossi MD Primary Care Provid er Encounter Details Date Type Department Care Team (Late st Contact Info) Description 05/27/2007 Outpatient Historical [facility] Nose [facility] Throat [address] [place] [phone] Rafi Yost MD 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; Other Diseases of Vocal Cords Social History Tobacco Use Types Packs/Day Years Used Date Smoking Tobacco: Never Assessed Comments Unknown Sex and Gender Information Value Date Recorded Sex Assigned at Not on file Legal Sex Female 3:43 AM FOUNDATION DIGGER Gender Identity Not on file Sexual Orientation Not on file documented as of this encounter Plan of Treatment Not on file documented as of this encounter Visit Diagnoses Diagnosis Other voice and resonance disorders- Primary Chronic laryngitis Paralysis of vocal cords or larynx, unspecified Other diseases of vocal cords documented in this encounter Care Teams Motion Picture Film Examiner Relationship Specialty Start Date End Date Carlee Rossi MD PCP - General 11/17/05 documented as of this encounter
--- OUTSIDE RECORDS SUMMARY | 2025-09-23 17:46 | XMS_ITS | Encounter Summary ---
Author Organization [facility] Address [address] [place] [address] Care Team Providers Care Manifold Operator Name Role Phone Carlee Rossi MD Primary Care Provid er Encounter Details Date Type Department Care Team (Late st Contact Info) Description 01/29/2007 Outpatient Historical [facility], Nose and Throat 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 Social History Tobacco Use Types Packs/Day Years Used Date Smoking Tobacco: Never Assessed Comments Unknown Sex and Gender Information Value Date Recorded Sex Assigned at Not on file Legal Sex Female 3:43 AM SINK CUTTER Gender Identity Not on file Sexual Orientation Not on file documented as of this encounter Plan of Treatment Not on file documented as of this encounter Visit Diagnoses Diagnosis Other voice and resonance disorders- Primary Paralysis of vocal cords or larynx, unspecified documented in this encounter Care Teams Manifold Operator Relationship Specialty Start Date End Date Carlee Rossi MD PCP - General 11/17/05 documented as of this encounter
--- OUTSIDE RECORDS SUMMARY | 2025-09-23 17:46 | XMS_ITS | Encounter Summary ---
Author Organization [employer] Address [address] [place] [address] Care Team Providers Care Software Integration Developer Name Role Phone Carlee Rossi MD Primary Care Provid er Encounter Details Date Type Department Care Team (Late st Contact Info) Description 08/16/2005 Outpatient Historical [facility] Social History Tobacco Use Types Packs/Day Years Used Date Smoking Tobacco: Never Assessed Comments Unknown Sex and Gender Information Value Date Recorded Sex Assigned at Not on file Legal Sex Female 3:43 AM CHILD AND FAMILY THERAPIST Gender Identity Not on file Sexual Orientation Not on file documented as of this encounter Plan of Treatment Not on file documented as of this encounter Visit Diagnoses Not on filedocumented in this encounter Care Teams Software Integration Developer Relationship Specialty Start Date End Date Carlee Rossi MD PCP - General 11/17/05 documented as of this encounter
--- OUTSIDE RECORDS SUMMARY | 2025-09-23 17:46 | XMS_ITS | Encounter Summary ---
Author Organization [facility] Address [address] [place] [address] Care Team Providers Care Pharmacy Benefit Manager Name Role Phone Carlee Rossi MD Primary Care Provid er Encounter Details Date Type Department Care Team (Latest Contact Info) Description 09/20/2005 Outpatient Historical [facility] Ear, Nose and Throat [address] [place] [phone] Audi Elias MD [address] [place] [address] VOICE DISTURBANCE NEC (Primary Dx); CHRONIC LARYNGITIS Social History Tobacco Use Types Packs/Day Years Used Date Smoking Tobacco: Never Assessed Comments Unknown Sex and Gender Information Value Date Recorded Sex Assigned at Not on file Legal Sex Female 3:43 AM SAFEMAKER Gender Identity Not on file Sexual Orientation Not on file documented as of this encounter Plan of Treatment Not on file documented as of this encounter Visit Diagnoses Diagnosis Other voice and resonance disorders- Primary Chronic laryngitis documented in this encounter Care Teams Pharmacy Benefit Manager Relationship Specialty Start Date End Date Carlee Rossi MD PCP - General 11/17/05 documented as of this encounter
--- OUTSIDE RECORDS SUMMARY | 2025-09-23 17:46 | XMS_ITS | Encounter Summary ---
Author Organization [facility] Address [address] [place] [address] Care Team Providers Care Business Mail Entry Clerk Name Role Phone Carlee Rossi MD Primary Care Provid er Encounter Details Date Type Department Care Team (Late st Contact Info) Description 04/03/2007 Outpatient Historical HIS [facility] Social History Tobacco Use Types Packs/Day Years Used Date Smoking Tobacco: Never Assessed Comments Unknown Sex and Gender Information Value Date Recorded Sex Assigned at Not on file Legal Sex Female 3:43 AM VP CARE MANAGEMENT Gender Identity Not on file Sexual Orientation Not on file documented as of this encounter Plan of Treatment Not on file documented as of this encounter Visit Diagnoses Not on filedocumented in this encounter Care Teams Business Mail Entry Clerk Relationship Specialty Start Date End Date Carlee Rossi MD PCP - General 11/17/05 documented as of this encounter
--- OUTSIDE RECORDS SUMMARY | 2025-09-23 17:46 | XMS_ITS | Encounter Summary ---
Author Organization [facility] Address [address] [place] [address] Care Team Providers Care Rn Visiting Name Role Phone aCrlee Rossi MD Primary Care Provid er Encounter Details Date Type Department Care Team (Latest Contact Info) Description 11/30/2006 Outpatient Historical [facility] Imaging Services [address] [place] [phone] Rafi Yost MD [address] [place] [address] Swelling, Mass, or Lump in Head and Neck (Primary Dx) Social History Tobacco Use Types Packs/Day Years Used Date Smoking Tobacco: Never Assessed Comments Unknown Sex and Gender Information Value Date Recorded Sex Assigned at Not on file Legal Sex Female 3:43 AM OPENSTACK DEVELOPER Gender Identity Not on file Sexual Orientation Not on file documented as of this encounter Plan of Treatment Not on file documented as of this encounter Procedures Procedure Name Priority Date/Time Associated Diagnosis Comments CT SOFT TISSUE NECK W CONTRAST Routine 11/30/2006 12:01 AM OPENSTACK DEVELOPER documented in this encounter Results * CT SOFT TISSUE NECK W CONTRAST (11/30/2006 12:01 AM OPENSTACK DEVELOPER) Anatomical Region Laterality Modality Neck Other 11/30/2006 12:0 1 AM OPENSTACK DEVELOPER Narrative 11/30/2006 12:01 AM OPENSTACK DEVELOPER 50 mL of Optiray-350 was given during the study. A small amount of oral contrast was given prior to the study. This contrast pools in the left piriformsinus and apparently outlines a 1 cm soft tissue mass, probably arising from the aryepiglotticfold. The false cords and true cords appear normal. No subglottic disease is appreciated. No suprahyoid disease is identified. The thyroid gland is unremarkable. No masses or adenopathy areotherwise visualized. The pulmonary apices and bony structures are unremarkable. Impression: 1. A 1 cm mass is present in the left piriform sinus. No appreciable glottic or subglottic disease ormetastatic disease is present. - Dictated By: Ignacio Zheng M.D. Electronically Signed By: Ignacio Zheng M.D. Date Signed: 11/30/06 Procedure Note 10/01/2009 50 mL of Optiray-350 was given during the study. A small amount of oral contrast was given prior to the study. Thiscontrast pools in the left piriformsinus and apparently outlines a 1 cm soft tissue mass, probablyarising from the aryepiglotticfold. The false cords and true cords appear normal. Nosubglottic disease is appreciated. No suprahyoid disease is identified. The thyroid gland is unremarkable. Nomasses or adenopathy areotherwise visualized. The pulmonary apices and bony structures areunremarkable. Impression: 1. A 1 cm mass is present in the left piriform sinus. No appreciableglottic or subglottic disease ormetastatic disease is present. - Dictated By: Ignacio Zheng M.D. Electronically Signed By: Ignacio Zheng M.D. Date Signed: 11/30/06 us J[address] Hernandez MD CT ORDERABLES Final Resu lt documented in this encounter Visit Diagnoses Diagnosis Swelling, mass, or lump in head and neck- Primary documented in this encounter Care Teams Rn Visiting Relationship Specialty Start Date End Date Carlee Rossi MD PCP - General 11/17/05 documented as of this encounter
--- OUTSIDE RECORDS SUMMARY | 2025-09-23 17:46 | XMS_ITS | Encounter Summary ---
Author Organization [facility] Address [address] [place] [address] Care Team Providers Care Manager Engagement Name Role Phone Carlee Rossi MD Primary Care Provid er Encounter Details Date Type Department Care Team (Late st Contact Info) Description 08/14/2005 Outpatient Historical HIS [facility] Social History Tobacco Use Types Packs/Day Years Used Date Smoking Tobacco: Never Assessed Comments Unknown Sex and Gender Information Value Date Recorded Sex Assigned at Not on file Legal Sex Female 3:43 AM MECHANICAL INTERN Gender Identity Not on file Sexual Orientation Not on file documented as of this encounter Plan of Treatment Not on file documented as of this encounter Visit Diagnoses Not on filedocumented in this encounter Care Teams Manager Engagement Relationship Specialty Start Date End Date Carlee Rossi MD PCP - General 11/17/05 documented as of this encounter
--- OUTSIDE RECORDS SUMMARY | 2025-09-23 17:46 | XMS_ITS | Encounter Summary ---
Author Organization [employer] [facility] Address [address] [place] [address] Care Team Providers Care Franchise Broker Name Role Phone Carlee Rossi MD Primary Care Provid er Encounter Details Date Type Department Care Team (Late st Contact Info) Description 04/05/2007 Outpatient Historical HIS [facility] Social History Tobacco Use Types Packs/Day Years Used Date Smoking Tobacco: Never Assessed Comments Unknown Sex and Gender Information Value Date Recorded Sex Assigned at Not on file Legal Sex Female 3:43 AM SUPERVISOR FRONT Gender Identity Not on file Sexual Orientation Not on file documented as of this encounter Plan of Treatment Not on file documented as of this encounter Visit Diagnoses Not on filedocumented in this encounter Care Teams Franchise Broker Relationship Specialty Start Date End Date Carlee Rossi MD PCP - General 11/17/05 documented as of this encounter
--- OUTSIDE RECORDS SUMMARY | 2025-09-23 17:46 | XMS_ITS | Encounter Summary ---
Author Organization [facility] Address [address] [place] [address] Care Team Providers Care Pension Examiner Name Role Phone Carlee Rossi MD Primary Care Provid er Encounter Details Date Type Department Care Team (Latest Contact Info) Description 12/14/2006 Outpatient Historical [facility] [address] [place] [phone] Rafi Yost MD [facility] [place] [address] Other Specified Pre-Operative Examination (Primary Dx) Social History Tobacco Use Types Packs/Day Years Used Date Smoking Tobacco: Never Assessed Comments Unknown Sex and Gender Information Value Date Recorded Sex Assigned at Not on file Legal Sex Female 3:43 AM EARTH SCIENCE FACULTY MEMBER Gender Identity Not on file Sexual Orientation Not on file documented as of this encounter Plan of Treatment Not on file documented as of this encounter Procedures Procedure Name Priority Date/Time Associated Diagnosis Comments CBC WITHOUT DIFFERENTIAL Routine 12/14/2006 3:32 PM EARTH SCIENCE FACULTY MEMBER documented in this encounter Results * (ABNORMAL) CBC WITHOUT DIFFERENTIAL (12/14/2006 3:32 PM EARTH SCIENCE FACULTY MEMBER) WBC 6.6 4.5 - 11.0 K/ul INTERFACE SYSTEM RBC 4.22 4.20 - 5.40 Mil/ul INTERFACE SYSTEM HEMOGLOBIN 12.5 12.0 - 16.0 g/dL INTERFACE SYSTEM HEMATOCRIT 36.8 36.0 - 46.0 % INTERFACE SYSTEM MCV 87.2 84.0 - 103.0 Fl INTERFACE SYSTEM MCH 29.6 27.0 - 34.0 pg INTERFACE SYSTEM MCHC 34.0 30.0 - 35.0 g/dL INTERFACE SYSTEM RDW 13.3 11.0 - 14.5 % INTERFACE SYSTEM PLATELETS 243 140 - 440 K/ul INTERFACE SYSTEM MPV 11.0 8.9 - 12.8 Fl INTERFACE SYSTEM NEUTROPHILS 70.9 42.2 - 75.2 % INTERFACE SYSTEM LYMPHOCYTES 20.7(L) 24.0 - 44.0 % INTERFACE SYSTEM MONOCYTES 6.5 2.0 - 10.0 % INTERFACE SYSTEM EOSINOPHILS 1.4 0.0 - 7.0 % INTERFACE SYSTEM BASOPHILS 0.5 0.0 - 1.0 % INTERFACE SYSTEM NEUTROPHIL ABSOLUTE 4.7 2.0 - 8.0 K/uL INTERFACE SYSTEM LYMPHOCYTE ABSOLUTE 1.4 1.2 - 4.0 K/ul INTERFACE SYSTEM MONOCYTE ABSOLUTE 0.4 0.1 - 0.6 K/ul INTERFACE SYSTEM EOSINOPHIL ABSOLUTE 0.1 0.0 - 0.7 K/ul INTERFACE SYSTEM BASOPHILS ABSOLUTE 0.0 0.0 - 0.2 K/ul INTERFACE SYSTEM 12/14/2006 3:32 PM EARTH SCIENCE FACULTY MEMBER us A Blayne Yost MD HEMATOLOGY ORDERABLES Edite d INTERFACE SYSTEM Refer to clinic/hospital department documented in this encounter Visit Diagnoses Diagnosis Other specified pre-operative examination- Primary documented in this encounter Care Teams Pension Examiner Relationship Specialty Start Date End Date Carlee Rossi MD PCP - General 11/17/05 documented as of this encounter
--- OUTSIDE RECORDS SUMMARY | 2025-09-23 17:46 | XMS_ITS | Encounter Summary ---
Author Organization [facility] Address [address] [place] [address] Care Team Providers Care Supervisor Screen Printing Name Role Phone Carlee Rossi MD Primary Care Provid er Encounter Details Date Type Department Care Team (Latest Contact Info) Description 2007 Outpatient Historical [facility] Orthopedics- [address] [place] [address] Jesús Oneal MD NO ADDRESS ON FILE Adhesive Capsulit Shlder (Primary Dx); Other Affections of Shoulder Region, not Elsewhere Classified Social History Tobacco Use Types Packs/Day Years Used Date Smoking Tobacco: Never Assessed Comments Unknown Sex and Gender Information Value Date Recorded Sex Assigned at Not on file Legal Sex Female 3:43 AM TOBACCO PRIZER Gender Identity Not on file Sexual Orientation Not on file documented as of this encounter Plan of Treatment Not on file documented as of this encounter Visit Diagnoses Diagnosis Adhesive capsulit shlder- Primary Adhesive capsulitis of shoulder Other affections of shoulder region, not elsewhere classified documented in this encounter Care Teams Supervisor Screen Printing Relationship Specialty Start Date End Date Carlee Rossi MD PCP - General 11/17/05 documented as of this encounter
--- OUTSIDE RECORDS SUMMARY | 2025-09-23 17:46 | XMS_ITS | Encounter Summary ---
Author Organization [facility] Address [address] [place] [address] Care Team Providers Care Back Seam Stitcher Name Role Phone Carlee Rossi MD Primary Care Provid er Encounter Details Date Type Department Care Team (Latest Contact Info) Description 04/01/2007 Outpatient Historical [facility] Physical Therapy [address] [place] [address] Jesús Oneal MD NO ADDRESS ON FILE Other Physical Therapy (Primary Dx) Social History Tobacco Use Types Packs/Day Years Used Date Smoking Tobacco: Never Assessed Comments Unknown Sex and Gender Information Value Date Recorded Sex Assigned at Not on file Legal Sex Female 3:43 AM HEAD SILVERMAN Gender Identity Not on file Sexual Orientation Not on file documented as of this encounter Plan of Treatment Not on file documented as of this encounter Visit Diagnoses Diagnosis Other physical therapy- Primary documented in this encounter Care Teams Back Seam Stitcher Relationship Specialty Start Date End Date Carlee Rossi MD PCP - General 11/17/05 documented as of this encounter
--- OUTSIDE RECORDS SUMMARY | 2025-09-23 17:46 | XMS_ITS | Encounter Summary ---
Author Organization [facility] [facility] Address [address] [place] [address] Care Team Providers Care Hogshead Opener Name Role Phone Carlee Rossi MD Primary Care Provid er Encounter Details Date Type Department Care Team (Late st Contact Info) Description 08/31/2005 Outpatient Historical [facility] Social History Tobacco Use Types Packs/Day Years Used Date Smoking Tobacco: Never Assessed Comments Unknown Sex and Gender Information Value Date Recorded Sex Assigned at Not on file Legal Sex Female 3:43 AM CELL POURER Gender Identity Not on file Sexual Orientation Not on file documented as of this encounter Plan of Treatment Not on file documented as of this encounter Visit Diagnoses Not on filedocumented in this encounter Care Teams Hogshead Opener Relationship Specialty Start Date End Date Carlee Rossi MD PCP - General 11/17/05 documented as of this encounter
--- OUTSIDE RECORDS SUMMARY | 2025-09-23 17:46 | XMS_ITS | Encounter Summary ---
Author Organization [facility] Address [address] [place] [address] Care Team Providers Care Environmental Maintenance Worker Name Role Phone Carlee Rossi MD Primary Care Provid er Encounter Details Date Type Department Care Team (Late st Contact Info) Description 01/29/2007 Outpatient Historical [facility] Imaging Services [facility] [place] [address] [place] [phone] Social History Tobacco Use Types Packs/Day Years Used Date Smoking Tobacco: Never Assessed Comments Unknown Sex and Gender Information Value Date Recorded Sex Assigned at Not on file Legal Sex Female 3:43 AM ACADEMIC AFFAIRS DEAN Gender Identity Not on file Sexual Orientation Not on file documented as of this encounter Plan of Treatment Not on file documented as of this encounter Visit Diagnoses Not on filedocumented in this encounter Care Teams Environmental Maintenance Worker Relationship Specialty Start Date End Date Carlee Rossi MD PCP - General 11/17/05 documented as of this encounter
--- OUTSIDE RECORDS SUMMARY | 2025-09-23 17:46 | XMS_ITS | Encounter Summary ---
Author Organization [employer] [facility] Address [address] [place] [address] Care Team Providers Care Lead Software Test Engineer Name Role Phone Carlee Rossi MD Primary Care Provid er Encounter Details Date Type Department Care Team (Late st Contact Info) Description 04/18/2007 Outpatient Historical [facility] Social History Tobacco Use Types Packs/Day Years Used Date Smoking Tobacco: Never Assessed Comments Unknown Sex and Gender Information Value Date Recorded Sex Assigned at Not on file Legal Sex Female 3:43 AM POOL LIFEGUARD Gender Identity Not on file Sexual Orientation Not on file documented as of this encounter Plan of Treatment Not on file documented as of this encounter Visit Diagnoses Not on filedocumented in this encounter Care Teams Lead Software Test Engineer Relationship Specialty Start Date End Date Carlee Rossi MD PCP - General 11/17/05 documented as of this encounter
--- OUTSIDE RECORDS SUMMARY | 2025-09-23 17:46 | XMS_ITS | Encounter Summary ---
Author Organization [facility] Address [address] [place] [address] Care Team Providers Care Bio Medical Technician Name Role Phone Carlee Rossi MD Primary Care Provid er Encounter Details Date Type Department Care Team (Latest Contact Info) Description 08/14/2005 Outpatient Historical [facility] Physical Therapy [address] [place] [phone] Jesús Oneal MD NO ADDRESS ON FILE ADHESIVE CAPSULIT SHLDER (Primary Dx) Social History Tobacco Use Types Packs/Day Years Used Date Smoking Tobacco: Never Assessed Comments Unknown Sex and Gender Information Value Date Recorded Sex Assigned at Not on file Legal Sex Female 3:43 AM CHEMICAL LAB TECHNICIAN Gender Identity Not on file Sexual Orientation Not on file documented as of this encounter Plan of Treatment Not on file documented as of this encounter Visit Diagnoses Diagnosis Adhesive capsulitis of shoulder- Primary documented in this encounter Care Teams Bio Medical Technician Relationship Specialty Start Date End Date Carlee Rossi MD PCP - General 11/17/05 documented as of this encounter
--- OUTSIDE RECORDS SUMMARY | 2025-09-23 17:46 | XMS_ITS | Encounter Summary ---
Author Organization [employer] [facility] Address [address] [place] [address] Care Team Providers Care Flanging Machine Operator Name Role Phone Carlee Rossi MD Primary Care Provid er Encounter Details Date Type Department Care Team (Late st Contact Info) Description 04/02/2007 Outpatient Historical [facility] Social History Tobacco Use Types Packs/Day Years Used Date Smoking Tobacco: Never Assessed Comments Unknown Sex and Gender Information Value Date Recorded Sex Assigned at Not on file Legal Sex Female 3:43 AM DIRECT MARKETING COORDINATOR Gender Identity Not on file Sexual Orientation Not on file documented as of this encounter Plan of Treatment Not on file documented as of this encounter Visit Diagnoses Not on filedocumented in this encounter Care Teams Flanging Machine Operator Relationship Specialty Start Date End Date Carlee Rossi MD PCP - General 11/17/05 documented as of this encounter
--- OUTSIDE RECORDS SUMMARY | 2025-09-23 17:46 | XMS_ITS | Encounter Summary ---
Author Organization [facility] Address [address] [place] [address] Care Team Providers Care Civil Engineering Professional Name Role Phone Carlee Rossi MD Primary Care Provid er Reason for Referral * Outpatient Services (Routine) - Closed Specialty Diagnoses / Procedures Referred By Franchesca bergeron Referred To Contact Diagnoses Other screening mammogram Procedures MAMMO DIGITAL SCREEN BILAT Carlee Rossi MD [address] [facility] [address] [place] [address] Phone: tel: fax: Referral ID Status Reason Start Date Expiration Date Visits Re quested Visits Authorized [id number] Closed 01/30/2011 07/29/2011 1 1 Encounter Details Date Type Department Care Team (Late st Contact Info) Description 01/30/[address] [facility] [address] [facility] [address] [place] [address] Carlee Rossi MD [address] [facility] [address] [place] [address] Other screening mammogram Social History Tobacco Use Types Packs/Day Years Used Date Smoking Tobacco: Never Alcohol Use Standard Drinks/Week Comments No 0 (1 standard drink = 0.6 oz pur e alcohol) Comments No Sex and Gender Information Value Date Recorded Sex Assigned at Not on file Legal Sex Female 3:43 AM ELECTROTYPER HELPER Gender Identity Not on file Sexual Orientation Not on file documented as of this encounter Plan of Treatment Not on file documented as of this encounter Results * MAMMO DIGITAL SCREEN BILAT (03/10/2011 3:54 PM CDT) Anatomical Region Laterality Modality Breast Bilateral Mammography Narrative 03/13/2011 3:22 PM CDT Bilateral Mammogram Reason for Exam: Screening Comparison: Comparison is made with the prior exam(s) dated 4+3.20.09+2.5.08 Findings: Bilateral CC and MLO views were obtained. This examination was reviewed with the aid of a computer-aided detection system(CAD). The breast tissue density is average. A few scattered benign type calcifications bilaterally without significant change. No significant new findings since the prior mammogram(s). Procedure Note Bashir Radford MD - 03/13/2011 Bilateral Mammogram Reason for Exam: Screening Comparison: Comparison is made with the prior exam(s) dated4+3.20.09+2.5.08 Findings: Bilateral CC and MLO views were obtained. This examination was reviewed with the aid of a computer-aided detectionsystem(CAD). The breast tissue density is average. A few scattered benign type calcifications bilaterally withoutsignificant change. No significant new findings since the prior mammogram(s). Carlee Rossi MD MAMMO ORDERABLES Fin al Result documented in this encounter Visit Diagnoses Diagnosis Other screening mammogram Other screening mammogram documented in this encounter Care Teams Civil Engineering Professional Relationship Specialty Start Date End Date Carlee Rossi MD PCP - General 11/17/05 documented as of this encounter
--- OUTSIDE RECORDS SUMMARY | 2025-09-23 17:46 | XMS_ITS | Encounter Summary ---
Author Organization [facility] Address [address] [place] [address] Care Team Providers Care Bias Binding Cutter Name Role Phone Carlee Rossi MD Primary Care Provid er Encounter Details Date Type Department Care Team (Late st Contact Info) Description 12/19/2006 Outpatient Historical [facility] Ear, Nose and Throat [address] [place] [phone] Rafi Yost MD [facility] [place] [place] [phone] Benign Ilya Larynx (Primary Dx) Social History Tobacco Use Types Packs/Day Years Used Date Smoking Tobacco: Never Assessed Comments Unknown Sex and Gender Information Value Date Recorded Sex Assigned at Not on file Legal Sex Female 3:43 AM MINK SLICER Gender Identity Not on file Sexual Orientation Not on file documented as of this encounter Plan of Treatment Not on file documented as of this encounter Visit Diagnoses Diagnosis Benign ilya larynx- Primary Benign neoplasm of larynx documented in this encounter Care Teams Bias Binding Cutter Relationship Specialty Start Date End Date Carlee Rossi MD PCP - General 11/17/05 documented as of this encounter
--- OUTSIDE RECORDS SUMMARY | 2025-09-23 17:46 | XMS_ITS | Encounter Summary ---
Author Organization [facility] Address [address] [place] [address] Care Team Providers Care Computer Repair Instructor Name Role Phone Carlee Rossi MD Primary Care Provid er Encounter Details Date Type Department Care Team (Latest Contact Info) Description 01/09/2007 Outpatient [facility] Ear, Nose and Throat [address] [address] [place] [phone] Audi Elias MD [address] [place] [address] Other Voice Disturbance (Primary Dx); Chronic Laryngitis; Unspecified Paralysis of Vocal Cords or Larynx Social History Tobacco Use Types Packs/Day Years Used Date Smoking Tobacco: Never Assessed Comments Unknown Sex and Gender Information Value Date Recorded Sex Assigned at Not on file Legal Sex Female 3:43 AM HOTEL ENGINEER Gender Identity Not on file Sexual Orientation Not on file documented as of this encounter Plan of Treatment Not on file documented as of this encounter Visit Diagnoses Diagnosis Other voice and resonance disorders- Primary Chronic laryngitis Paralysis of vocal cords or larynx, unspecified documented in this encounter Care Teams Computer Repair Instructor Relationship Specialty Start Date End Date Carlee Rossi MD PCP - General 11/17/05 documented as of this encounter
--- OUTSIDE RECORDS SUMMARY | 2025-09-23 17:46 | XMS_ITS | Encounter Summary ---
Author Organization [facility] Address [address] [place] [address] Care Team Providers Care Accounts Receivable Associate Name Role Phone Carlee Rossi MD Primary Care Provid er Encounter Details Date Type Department Care Team (Late st Contact Info) Description 2007 Outpatient Historical [facility] Social History Tobacco Use Types Packs/Day Years Used Date Smoking Tobacco: Never Assessed Comments Unknown Sex and Gender Information Value Date Recorded Sex Assigned at Not on file Legal Sex Female 3:43 AM DIGITAL ACCOUNT COORDINATOR Gender Identity Not on file Sexual Orientation Not on file documented as of this encounter Plan of Treatment Not on file documented as of this encounter Visit Diagnoses Not on filedocumented in this encounter Care Teams Accounts Receivable Associate Relationship Specialty Start Date End Date Carlee Rossi MD PCP - General 11/17/05 documented as of this encounter
--- OUTSIDE RECORDS SUMMARY | 2025-09-23 17:46 | XMS_ITS | Encounter Summary ---
Author Organization [facility] Address [address] [place] [address] Care Team Providers Care Switch Inspector Name Role Phone Carlee Rossi MD Primary Care Provid er Encounter Details Date Type Department Care Team (Latest Contact Info) Description 03/29/2007 Outpatient Historical [facility] Operating Room [address] [place] [address] Rafi Yost MD [address] [place] [phone] Adhesive Capsulitis of Shoulder (Primary Dx) Social History Tobacco Use Types Packs/Day Years Used Date Smoking Tobacco: Never Assessed Comments Unknown Sex and Gender Information Value Date Recorded Sex Assigned at Not on file Legal Sex Female 3:43 AM JUDGE Gender Identity Not on file Sexual Orientation Not on file documented as of this encounter Plan of Treatment Not on file documented as of this encounter Visit Diagnoses Diagnosis Adhesive capsulitis of shoulder- Primary documented in this encounter Care Teams Switch Inspector Relationship Specialty Start Date End Date Carlee Rossi MD PCP - General 11/17/05 documented as of this encounter
--- OUTSIDE RECORDS SUMMARY | 2025-09-23 17:46 | XMS_ITS | Encounter Summary ---
Author Organization [facility] Address [address] [place] [address] Care Team Providers Care Flight Attendant/Inflight Manager Name Role Phone Carlee Rossi MD Primary Care Provid er Encounter Details Date Type Department Care Team (Latest Contact Info) Description 08/28/2005 Outpatient Historical [facility] Ear, Nose and Throat [address] [place] [phone] Zeeshan Marc MD NO ADDRESS ON FILE VOICE DISTURBANCE NEC (Primary Dx); VOCAL CORD PARALYSIS NOS Social History Tobacco Use Types Packs/Day Years Used Date Smoking Tobacco: Never Assessed Comments Unknown Sex and Gender Information Value Date Recorded Sex Assigned at Not on file Legal Sex Female 3:43 AM PERIODICALS CLERK Gender Identity Not on file Sexual Orientation Not on file documented as of this encounter Plan of Treatment Not on file documented as of this encounter Visit Diagnoses Diagnosis Other voice and resonance disorders- Primary Paralysis of vocal cords or larynx, unspecified documented in this encounter Care Teams Flight Attendant/Inflight Manager Relationship Specialty Start Date End Date Carlee Rossi MD PCP - General 11/17/05 documented as of this encounter
--- OUTSIDE RECORDS SUMMARY | 2025-09-23 17:46 | XMS_ITS | Encounter Summary ---
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
--- OUTSIDE RECORDS SUMMARY | 2025-09-23 17:46 | XMS_ITS | Encounter Summary ---
Author Organization [facility] Address [address] [place] [address] Care Team Providers Care Action Finisher Name Role Phone Carlee Rossi MD Primary Care Provid er Encounter Details Date Type Department Care Team (Latest Contact Info) Description 08/15/2005 Outpatient Historical [facility] Orthopedics- 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
--- OUTSIDE RECORDS SUMMARY | 2025-09-23 17:46 | XMS_ITS | Encounter Summary ---
Author Organization 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 Report feedback to Dr. España <<<<<<<< TRIAGE NOTE >>>>>>>> Triage Note: Event Coordinator Marketing And Sales Joe Olsen added this note on Jun 25 2015 7:44PM: Patient is out of town for . Patient was rushing and forgot her medications. Patient was able to get 1 of the 3 medication but is having problems with the other two Tambocor and Depakene. Tambocor has no refills and Depakene she normally get in liquid form and out of town pharmacy only have pill form. Patient uses [facility] locally. Patient will be using [facility] [place], [place] while out of town. Event Coordinator Marketing And Sales [email or web address] added this note on Jun 25 2015 8:28PM Triager spoke with patient, verified that MD did call patient. <<<<<<<< TRIAGE/OUTCOME >>>>>>>> Guideline Title: Medication Questions - Adult Recommended Disposition: Call Dispensing Pharmacy or Provider Immediately Original Inclination: Call or see Provider > 24 hrs Intended Action: Call Provider Immediately Physician Contacted: No Requests refill of prescribed medication that does NOT have a valid refill; lack of medication may cause clinical risk to patient if not available. ? YES documented in this encounter Plan of Treatment Not on file documented as of this encounter Visit Diagnoses Not on filedocumented in this encounter Care Teams Wheelman Relationship Specialty Start Date End Date Carlee Rossi MD PCP - General 11/17/05 documented as of this encounter
--- OUTSIDE RECORDS SUMMARY | 2025-09-23 17:46 | XMS_ITS | Encounter Summary ---
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
--- OUTSIDE RECORDS SUMMARY | 2025-09-23 17:46 | XMS_ITS | Encounter Summary ---
Author Organization [facility] Address [address] [place] [address] Care Team Providers Care Medical Social Consultant Name Role Phone Carlee Rossi MD Primary Care Provid er Encounter Details Date Type Department Care Team (Latest Contact Info) Description 03/01/2007 Outpatient Historical [facility] Internal Medicine- [place] [address] [facility] [address] [place] [address] Carlee Rossi MD [address] [place] [address] Onychia of Toe (Primary Dx); Cramp of Limb; Adhesive Capsulit Shlder Social History Tobacco Use Types Packs/Day Years Used Date Smoking Tobacco: Never Assessed Comments Unknown Sex and Gender Information Value Date Recorded Sex Assigned at Not on file 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
--- OUTSIDE RECORDS SUMMARY | 2025-09-23 17:46 | XMS_ITS | Encounter Summary ---
Author Organization [facility] Address [address] [place] [address] Care Team Providers Care Experimental Box Tester Name Role Phone Carlee Rossi MD Primary Care Provid er Encounter Details Date Type Department Care Team (Latest Contact Info) Description 09/18/2005 Outpatient Historical [facility] Orthopedics- 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
--- OUTSIDE RECORDS SUMMARY | 2025-09-23 17:46 | XMS_ITS | Encounter Summary ---
Author Organization [facility] Address [address] [place] [address] Care Team Providers Care Tuft Machine Operator Name Role Phone Carlee Rossi MD Primary Care Provid er Reason for Referral * Outpatient Services (Routine) - Closed Specialty Diagnoses / Procedures Referred By Franchesca bergeron Referred To Contact Diagnoses Other screening mammogram Procedures MAMMO DIGITAL SCREEN BILAT Carlee Rossi MD [address] [facility] [address] [place] [address] Phone: tel: fax: [facility] Pre-Registration [place] CALL TO MAKE APPOINTMENT ONLY [address] [place] [address] Phone: tel: fax: Referral ID Status Reason Start Date Expiration Date Visits Re quested Visits Authorized [id number] Closed 01/20/2013 02/20/2014 1 1 Encounter Details Date Type Department Care Team (Latest Contact Info) Description 01/20/2013 Ancillary Orders 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 Findings: Bilateral CC and MLO views were obtained. This examination was reviewed with the aid of a computer-aided detection system(CAD). The breast tissue is dense. Bilateral calcifications appear stable. No significant new findings since the prior mammogram(s). Procedure Note Norma Copeland MD - 02/17/2013 Bilateral Mammogram Reason for Exam: Screening Comparison: Comparison is made with prior exam(s). Findings: Bilateral CC and MLO views were obtained. This examination was reviewed with the aid of a computer-aided detectionsystem(CAD). The breast tissue is dense. Bilateral calcifications appear stable. No significant new findings since the prior mammogram(s). Carlee Rossi MD MAMMO ORDERABLES Fin al Result documented in this encounter Visit Diagnoses Diagnosis Other screening mammogram- Primary Other screening mammogram documented in this encounter Care Teams Tuft Machine Operator Relationship Specialty Start Date End Date Carlee Rossi MD PCP - General 11/17/05 documented as of this encounter
--- OUTSIDE RECORDS SUMMARY | 2025-09-23 17:46 | XMS_ITS | Encounter Summary ---
Author Organization [facility] Address [address] [place] [address] Care Team Providers Care Property Damage Claims Adjustor Name Role Phone Carlee Rossi MD Primary Care Provid er Encounter Details Date Type Department Care Team (Latest Contact Info) Description 02/12/2014 Ancillary Orders [facility] Pre-Registration [place] CALL TO MAKE APPOINTMENT ONLY [address] [place] [address] Carlee Rossi MD [address] [place] [address] Other screening mammogram (Primary Dx) Social History Tobacco Use Types Packs/Day Years Used Date Smoking Tobacco: Never Smokeless Tobacco: Never Alcohol Use Standard Drinks/Week Comments No 0 (1 standard drink = 0.6 oz pur e alcohol) Comments No Sex and Gender Information Value Date Recorded Sex Assigned at Not on file 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
--- OUTSIDE RECORDS SUMMARY | 2025-09-23 17:46 | XMS_ITS | Encounter Summary ---
Author Organization [facility] Address [address] [place] [address] Care Team Providers Care Monument Mason Name Role Phone Carlee Rossi MD Primary Care Provid er Reason for Referral * Outpatient Services (Routine) - Closed Specialty Diagnoses / Procedures Referred By Franchesca bergeron Referred To Contact Radiology Diagnoses Mastodynia Procedures MAMMO BREAST US BILAT Carlee Rossi MD [address] [facility] [address] [place] [address] Phone: tel: fax: [facility] [address] [facility] [address] [place] [address] Phone: tel: fax: Referral ID Status Reason Start Date Expiration Date Visits Re quested Visits Authorized [id number] Closed 05/25/2014 06/25/2015 1 1 Encounter Details Date Type Department Care Team (Latest Contact Info) Description 03/04/2014 Ancillary Orders [facility] Pre-Registration [place] CALL TO MAKE APPOINTMENT ONLY [address] [place] [address] Carlee Rossi MD [address] [facility] [address] [place] [address] Mastodynia (Primary Dx) Social History Tobacco Use Types Packs/Day Years Used Date Smoking Tobacco: Never Smokeless Tobacco: Never Alcohol Use Standard Drinks/Week Comments No 0 (1 standard drink = 0.6 oz pur e alcohol) Comments No Sex and Gender Information Value Date Recorded Sex Assigned at Not on file 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 Probable benign cysts bilaterally as described. 2. Probably benign calcifications left breast. RECOMMENDATION: Six month followup left diagnostic mammogram and bilateral breast ultrasound. Findings and recommendations discussed with the patient at the time of exam. Patient received the result and recommendation letter. DANN/bess 1520 PM - uploaded from [employer] 05/26/2014 10:13 AM CDT BILATERAL DIAGNOSTIC MAMMOGRAM [...] by the Computer Aided Detection System (CAD), [employer], Version 8.3. ULTRASOUND FINDINGS: RIGHT BREAST: In [...] by the Computer Aided Detection System (CAD), [employer], Version 8.3. ULTRASOUND FINDINGS: RIGHT BREAST: In [...] letter. DANN/bess 1520 PM - uploaded from [employer] - Carlee Rossi MD MAMMO ORDERABLES Fin al Result documented in this encounter Visit Diagnoses Diagnosis Mastodynia- Primary Mastodynia documented in this encounter Care Teams Monument Mason Relationship Specialty Start Date End Date Carlee Rossi MD PCP - General 11/17/05 documented as of this encounter
--- OUTSIDE RECORDS SUMMARY | 2025-09-23 17:46 | XMS_ITS | Encounter Summary ---
Author Organization [facility] Address [address] [place] [address] Care Team Providers Care Worsted Winder Name Role Phone Carlee Rossi MD Primary Care Provid er Encounter Details Date Type Department Care Team (Latest Contact Info) Description 02/05/2007 Outpatient Historical [facility] Orthopedics- 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
--- OUTSIDE RECORDS SUMMARY | 2025-09-23 17:47 | XMS_ITS | Encounter Summary ---
Author Organization [facility] Address [address] [place] [address] Care Team Providers Care Career Agent Name Role Phone Carlee Rossi MD Primary Care Provid er Encounter Details Date Type Department Care Team (Latest Contact Info) Description 10/30/2006 Outpatient [facility] Ear, Nose and Throat 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
--- OUTSIDE RECORDS SUMMARY | 2025-09-23 17:47 | XMS_ITS | Clinical Summary ---
Author Organization [facility] Address [address] [place] [address] Care Team Providers Care Welder Pipe Making Name Role Phone Carlee Rossi MD Primary Care Provid er Allergies Active Allergy Reactions Criticality Noted Date Comments Carbamazepine Rash High Generic Tegretol Codeine Nausea and Vomiting Low Naproxen Unknown Sulfa (Sulfonamide Antibiotics) Rash High Medications acetaminophen (TYLENOL) 500 mg tablet Take 1,000 mg by mouth every 6 hours as needed. Active fluticasone (FLONASE) 50 mcg/spray [place], Suspension ADMINISTER 2 SPRAYS IN EACH NOSTRIL DAILY. 48 Gram 1 5 Active metoprolol succinate (TOPROL XL) 25 mg Extended Release 24 hour tablet Take 1 Tablet (25 mg) by mouth daily. 90 Tablet 3 1 Active flecainide (TAMBOCOR) 50 mg Tablet Take 1 Tablet (50 mg) by mouth every 12 hours. 180 Tablet 3 1 Active (MODERNA) covid 19 vaccine - EMERGENCY USE AUTHORIZATION, mRNA-1273(PF) 100 mcg/0.5 mL IM suspension Inject 0.5 mL (100 mcg) by intramuscular injection every 28 days. 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 Will update glasses per [facility] Esotropia, nonaccommodative 03/19/2019 Assessment & Plan (03/19/2019 11:52 AM CDT): SENSORIMOTOR EXAM: Good control of left DVD and esotropia with prism glasses. Measurements are comitant with only a slight worsening of left hypertropia in down gaze position. Binocular fusion is present. 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 Left. 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 06/25/2009 Dysphonia 06/25/2009 11/20/2013 Hereditary and idiopathic pe ripheral neuropathy 06/01/2009 06/01/2009 Other convulsions 06/01/2009 Other voice and resonance disorders 06/01/2009 Unspecified tinnitus 009 Unspecified hereditary and i diopathic peripheral neuropathy 06/01/2009 Immunizations Immunization Administration Dates Next Due (ADACEL/BOOSTRIX)(10 YR UP) TDAP VACCINE, 0.5ML, IM 04/12/2011 (PNEUMOVAX 23)(50 YRS UP) PN EUMOCOCCAL POLYSACCHARIDE (PPV23) 0.5 ML, IM 09/12/2013 (SHINGRIX)(50 YRS UP) ZOSTER VACCINE RECOMBINANT, 0.5 ML, IM 02/27/2020,09/06/2019 (SPIKEVAX) (12 YRS UP PRIMAR Y SERIES) COVID-19 VACCINE - MRNA-1273(PF) 100 MCG/0.5 ML IM SUSP 03/17/2021,02/21/2021 INFLUENZA VACCINE QUADRIVALE NT 3 YR UP PF IM 09/03/2018,09/25/2017,08/09/2016,08/13 Influenza Seasonal Unspecifi ed Formulation IM 08/30/2020,08/12/2019,09/28/2005 Influenza Vaccine Split 3+ Yrs PF IM 08/01/2012 Family History Medical History Relation Name Comments Cataract Father Other Father Mitral Valve Pr olapse Colon Cancer Maternal Grandmother Cataract Mother Hypertension Mother Amblyopia Neg Hx Blindness Neg Hx Breast Cancer Neg Hx patient declin ed risk assessment form - see media tab Detachment/Tears Neg Hx Glaucoma Neg Hx Macular Degen Neg Hx Ovarian Cancer Neg Hx Strabismus Neg Hx Thyroid Disease Neg Hx Relation Name Status Comments Brother Alive Father Alive Maternal Grandmother Mother Alive Son Alive Social History Tobacco Use Types Packs/Day Years Used Date Smoking Tobacco: Never Smokeless Tobacco: Never Tobacco Cessation:Counseling Given: No Alcohol Use Standard Drinks/Week Comments No 0 (1 standard drink = 0.6 oz pur e alcohol) Comments No Sex and Gender Information Value Date Recorded Sex Assigned at Not on file Legal Sex Female 3:43 AM 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 Gender Identity Not on file Sexual Orientation Not on file Occupation Industry Job Start Date Job End Date Not on file Not on file Not on file Not on file Last Filed Vital Signs Vital Sign Reading Time Taken Comments Blood Pressure 118/70 12/20/2020 8:08 AM 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 Pulse 64 12/20/2020 8:08 AM 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 Temperature 36.9 C (98.5 F) 08/14/2019 1:46 PM CDT Respiratory Rate 16 02/25/2020 8:10 AM CDT Oxygen Saturation 98% 09/30/2020 3:17 PM 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 Inhaled Oxygen Concentration - - Weight 55.2 kg (121 lb 12.8 oz) 12/20/2020 8:08 AM 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 Height 157.5 cm (5' 2 ) 12/20/2020 8:08 AM 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 Body Mass Index 22.28 12/20/2020 8:08 AM 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 Plan of Treatment Health Maintenance Due Date Last Done Comments FIT-DNA Q 3 years 2004 FIT/FOBT Q 1 year 2004 Flex Sig/CT Colonography Q 5 years 2004 PNEUMOCOCCAL VACCINE 50+ YEA RS (2 of 2 - PCV) 09/12/2014 09/12/2013 DTAP/TDAP/TD VACCINES (2 - T d or Tdap) 04/12/2021 04/12/2011 BREAST CANCER SCREENING 07/26/2023 07/26/20 22, 02/01/2021, 04/01/2019, Additional history exists Preventative Visit- Commercial 11/12/2024 1 12/02/2023, 07/20/2021, 11/17/2019, Additional history exists INFLUENZA VACCINE (#1) 2025 , 08/12/2019, 09/03/2018, Additional history exists COVID-19 Vaccine (3 - 2024-2 6 season) 2025 03/17/2021, 02/21/2021 OSTEOPOROSIS SCREENING 01/02/2030 01/02/2025, 2017 COLORECTAL SCREENING 01/09/2030 01/09/2020, 01/09/2020, 10/19/2009, Additional history exists Colorectal Cancer Screening 01/09/2030 RSV VACCINE (60+ or ) (1 - 1-dose 75+ series) 2034 ZOSTER VACCINE Completed 02/27/2020, 09/06/2019 Procedures Procedure Name Priority Date/Time Associated Diagnosis Comments MAMMO 3D [place]ENRI[place] SCREEN BILAT W OR WO CAD Routine 02/01/2021 2:55 PM CDT Visit for screening mammogram COLONOSCOPY REPORT 01/09/2020 12 :17 PM 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 XR DEXA BONE DENSITY AXIAL 1 OR MORE SITES Routine 01/31/2018 from Last 3 Months or Most Recently Relevant to Health Maintenance Results * MAMMO SCRN BILAT 3D [place] W OR WO CAD (02/01/2021 2:55 PM CDT) Anatomical Region Laterality Modality Breast Bilateral Mammography Narrative 02/03/2021 11:20 AM CDT Bilateral Digital Mammogram with CAD and 3D Tomography Reason for Exam: Screening Comparison: Compared to: 04/01/2019 MAMMO SCRN BILAT 3D [place] W OR WO CAD, 09/11/2017 MAMMO SCRN BILAT 3D [place] W OR WO CAD, 07/11/2016 MAMMO DIGITAL SCREEN BILAT, 05/25/2014 MAMMO DIGITAL DIAG BILAT, and 02/14/2013 MAMMO DIGITAL SCREEN BILAT Technique: 3D MLO and CC digital tomosynthesis images were acquired and synthesized 2D images (C view) were generated. This digital mammogram was also analyzed by the Computer Aided Detection System CAD). Breast Composition: The breasts are heterogeneously dense, which may obscure small masses. There are no suspicious masses, areas of architectural distortions, or microcalcifications to suggest malignancy. No significant new findings since the prior mammogram(s). us Carlee Rossi MD MAMMO ORDERABLES Fin al Result * COLONOSCOPY REPORT (01/09/2020 12:17 PM 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) Narrative Procedure Note Blayne Kelly MD - 01/09/2020 12:16 PM CST [facility] GI Patient Name: Terri Morales Procedure Date: 01/09/2020 Date of : 1960 Admit Type: Outpatient Age: 59 Attending MD: Blayne Kelly MD Procedure: Colonoscopy Indications: Screening for colorectal malignant neoplasm Providers: Blayne Kelly MD Referring MD: Carlee Rossi MD Medicines: Midazolam 7 mg IV, Fentanyl 100 micrograms IV, Sedation Administered by an Endoscopy Nurse Complications: No immediate complications. Estimated blood loss: Minimal. Procedure: After I obtained informed consent, the scope was passed under direct vision. Throughout the procedure, the patient's blood pressure, pulse, and oxygen saturations were monitored continuously. The Colonoscope was introduced through the anus and advanced to the cecum, identified by appendiceal orifice and ileocecal valve. The entire colon was examined. Estimated Blood Loss: Estimated blood loss was minimal. Findings: Multiple small and large-mouthed diverticula were found in the sigmoid colon, descending colon and transverse colon. There was no evidence of diverticular bleeding. Non-bleeding internal hemorrhoids were found. The hemorrhoids were Grade I (internal hemorrhoids that do not prolapse). Impression: - Diverticulosis in the sigmoid colon, in the descending colon and in the transverse colon. There was no evidence of diverticular bleeding. - Non-bleeding internal hemorrhoids. - No specimens collected. Recommendation: - Repeat colonoscopy in 10 years for surveillance. Blayne Kelly MD 01/09/2020 12:16:44 PM Number of Addenda: 0 Note Initiated On: 01/09/2020 11:53 AM Scope Withdrawal Time 0 hours 3 minutes 37 seconds Scope In: 12:04:47 PM Scope Out: 12:14:07 PM [id number] Blayne Kelly MD GI PROCEDURE ORDERABLES F inal Result * XR DEXA BONE DENSITY AXIAL 1 OR MORE SITES (01/31/2018) Anatomical Region Laterality Modality Other us Abstract Spg Provider DIAGNOSTIC IMAGING ORDERAB LES Final Result from Last 3 Months or Most Recently Relevant to Health Maintenance Insurance AETNA RX AETNA Commercial RX [facility] [employer] Advance Directives For more information, please contact: [phone] * Full Code (Latest Code Status on File) Date Activated Date Inactivated Comments 01/09/2020 11:04 AM 01/09/2020 3:46 PM * Full Code Date Activated Date Inactivated Comments 08/01/2019 8:19 AM 08/01/2019 6:52 PM * Full Code Date Activated Date Inactivated Comments 11/04/2013 2:31 PM 11/06/2013 6:54 PM * Full Code Date Activated Date Inactivated Comments 10/15/2009 10:51 AM 10/16/2009 2:01 AM Care Teams Welder Pipe Making Relationship Specialty Start Date End Date Anandarajah, Rajamanikkam, MD PCP - General 11/17/05
--- OUTSIDE RECORDS SUMMARY | 2025-09-23 17:47 | XMS_ITS | Encounter Summary ---
Author Organization [facility] Address [address] [place] [address] Care Team Providers Care Ankle Patch Molder Name Role Phone Carlee Rossi MD Primary Care Provid er Encounter Details Date Type Department Care Team (Late st Contact Info) Description 03/03/2010 Ancillary Orders [facility] [address] [facility] [address] [place] [address] Carlee Rossi MD [address] [facility] [address] [place] [address] Other Screening Mammogram Social History Tobacco Use Types Packs/Day Years Used Date Smoking Tobacco: Never Alcohol Use Standard Drinks/Week Comments No 0 (1 standard drink = 0.6 oz pur e alcohol) Comments No Sex and Gender Information Value Date Recorded Sex Assigned at Not on file Legal Sex Female 3:43 AM 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 Findings: Bilateral CC and MLO views were obtained. This examination was reviewed with the aid of a computer-aided detection system(CAD). The breast tissue is dense. No significant new findings since the prior mammogram(s). A post biopsy marker clip in the left breast is at the site of prior benign biopsy. Diffusely scattered faint microcalcifications are present bilaterally, including some calcifications associated with the marker clip. No suspicious interval change is identified. Procedure Note Zoey Quiñones MD - 03/04/2010 Bilateral Mammogram Reason for Exam: Screening Comparison: Comparison is made with multiple prior exams, the most recentdated 01/29/2009. Findings: Bilateral CC and MLO views were obtained. This examination was reviewed with the aid of a computer-aided detectionsystem(CAD). The breast tissue is dense. No significant new findings since the prior mammogram(s). A post biopsymarker clip in the left breast is at the site of prior benign biopsy.Diffusely scattered faint microcalcifications are present bilaterally,including some calcifications associated with the marker clip. Nosuspicious interval change is identified. Carlee Rossi MD MAMMO ORDERABLES Fin al Result documented in this encounter Visit Diagnoses Diagnosis Other screening mammogram Other screening mammogram documented in this encounter Care Teams Ankle Patch Molder Relationship Specialty Start Date End Date Carlee Rossi MD PCP - General 11/17/05 documented as of this encounter
--- OUTSIDE RECORDS SUMMARY | 2025-09-23 17:47 | XMS_ITS | Data Portability ---
Author Organization [facility] - Donnie Larson [facility] Shantel Enciso [facility] Address [address] [address] Care Team Providers Care Weed Thinner Name Role Phone LUIS MOREIRA Primary Care Provider Assessment Encounter Date Assessment Date Assessment LastModified by Organization Details LastModified Time 08/26/2025 08/26/2025 65-year-old fema florina with a history of bilateral atherosclerosis of carotid arteries and mixed hyperlipidemia presenting with possible gastroesophageal reflux episodes and vocal cord dysfunction. Consideration of statin therapy is advised due to elevated cholesterol and carotid plaque. Fosamax treatment for osteoporosis has been scheduled. [email or web address] Not available 08/26/2025 12:13:17 09/21/2025 09/21/2025 65-year-old fempetr le with a history of chest pain presenting for evaluation. Episodes described as squeezing central chest pain without burning sensation, suggesting esophageal spasm versus coronary artery disease. The patient has a history of PSVT with prior stress testing 7 years ago and vascular risk factors. A stress echocardiogram is being planned with life tester outboard motors input on medication management pre-test. Differential includes [...] Modified Time Details Appointments None recorded. Lab measles + mumps + rubella virus IgG panel, QN, serum or plasma 10/2024 [email or web address] 23 [facility], [address], [address] [place], [address], 10:06:45 Referral None recorded. Procedures None recorded. Surgeries None recorded. Imaging electrocard iogram 2024 [facility] ([facility]), [address] [place], [address], 09:57:13 stress echocardiog walt 2024 [facility], [address] [place] [address], [address], 09:05:30 electromyog walt + nerve conduction study 2024 [facility] - [address], [place], [address], 15:20:53 MRI, brain, w/wo contrast [address] [facility], [address] [place] [address], [address], 15:53:40 MRI, knee, w/o contrast [address] Imaging Orders, [address] [place] [address], [address], 14:22:37 Medication Orders atorvastati n 20 mg tablet 2024 [id number], [address], [place], [place], [id number], 12:05:26 ondansetron HCl 4 mg tablet 2023 [facility] #[id number], [address] [facility], [place], [address], 12:23:06 Patient TargetsNo targets recorded. Patient Instructions Encounter Date Encounter Id Patient Instructions Last Modified By Organization Details Last Modified Time 08/26/2025 [id number] - Start taking t he prescribed statin to manage cholesterol. - Begin treatment with Pepcid for acid reflux relief. - Implement recommended dietary changes; avoid lying down after eating. - Start Fosamax as directed within the next week for osteoporosis. - Continue calcium and vitamin D supplements. - Observe for any changes in vocal symptoms; follow up if persistent. - Report any new symptoms or changes in health promptly. [email or web address] Not available 08/26/2025 12:13:19 We discussed the patient's mixed hyperlipidemia and the moderate elevation of cholesterol levels requiring potential statin therapy due to carotid plaques. I explained the benefits of statin medication in stabilizing plaque and reducing the risk of stroke, noting the patient's stenosis of less than 50%. We reviewed the introduction of Pepcid as a treatment for gastroesophageal reflux disease to manage her reported symptoms effectively, and I provided dietary and lifestyle guidance to reduce episodes of reflux. Our conversation also included a discussion about calcium and vitamin D supplementation for osteoporosis, agreeing that starting Fosamax would be beneficial for improving bone density. For her vocal cord dysfunction, I advised close monitoring of symptoms and consideration of further evaluation if symptoms persist. Follow-up care would ensure monitoring of response to treatments and adjustments as necessary. [email or web address] Not available 08/26/2025 12:13:20 09/21/2025 [id number] - Proceed for EK G as directed [...] Abnormal Flag Note LastModifiedBy Organization Detail LastModifiedTime 10/31/20 24 10/31/2024 CBC WBC 6.1 x10 4.0-10 .5 Not Available [facility] [address], [place], [address], 10/31/2024 11:01:07 10/31/2010/31/2024 CBC RBC 4.32 x10 3.50-5 .50 Not Available [facility] [address], [place], [address], 10/31/2024 11:01:07 10/31/20 24 10/31/2024 CBC HGB 13.0 g/dL 12.0-1 6.0 Not Available [facility] [address], [place], [address], 10/31/2024 11:01:07 10/31/20 24 10/31/2024 CBC HCT 37.5 % 37.0-4 7.0 Not Available [facility] [address], [place], [address], 10/31/2024 11:01:07 10/31/20 24 10/31/2024 CBC MCV 86.9 fL 80.0-9 9.9 Not Available [facility] [address], [place], [address], 10/31/2024 11:01:07 10/31/20 24 10/31/2024 CBC MCH 30.1 pg 27.0-3 2.0 Not Available [facility] [address] [facility] 1, [place], [address], 10/31/2024 11:01:07 10/31/20 24 10/31/2024 CBC MCHC 34.7 g/dL 32.0-3 6.0 Not Available [facility] [address] [facility] 1, [place], [address], 10/31/2024 11:01:07 10/31/20 24 10/31/2024 CBC RDW 13.5 % 11.5-1 4.5 Not Available [facility] [address] [facility] 1, [place], [address], 10/31/2024 11:01:07 10/31/20 24 10/31/2024 CBC plt 188.0 x10 140.0- 451.0 Not Available [facility] [address] [facility] 1, [place], [address], 10/31/2024 11:01:07 10/31/20 24 10/31/2024 CBC lymphocytes % 16.6 % 20.0-5 0.0 low Not Available [facility] [address] [facility], [place], [address], 10/31/2024 11:01:07 10/31/20 24 10/31/2024 CBC granulcytes % 73.0 % 30.0-7 0.0 high Not Available [facility] [address] [facility], [place], [address], 10/31/2024 11:01:07 10/31/20 24 10/31/2024 CBC monocytes % 9.9 % 2.0-16 .0 Not Available [facility] [address] [facility], [place], [address], 10/31/2024 11:01:07 10/31/20 24 10/31/2024 CBC granulcytes# 4.4 x10 Not Ale ilable [facility] [address] [address], [place], [address], 10/31/2024 11:01:07 10/31/20 24 10/31/2024 CBC lymphocytes # 1.0 x10 Not Available [facility] [address] [address], [place], [address], 10/31/2024 11:01:07 10/31/20 24 10/31/2024 CBC monocytes # 0.6 x10 Not Avai lable [address] [address], [place], [address], 10/31/2024 11:01:07 10/31/20 24 10/31/2024 CMP (FEMA LE) glucose 94.0 mg/dL 60.0-9 9.0 Not Available [facility] [address] [address], [place], [address], 10/31/2024 11:12:57 10/31/20 24 10/31/2024 CMP (FEMA LE) BUN (blood urea nitrogen) 19.0 mg/dL 10.0-2 6.0 Not Available [address] [address], [place], [address], 10/31/2024 11:12:57 10/31/20 24 10/31/2024 CMP (FEMA LE) creatinine (serum) 0.9 mg/dL 0.4-1. 5 Not Available [facility] [address] [address], [place], [address], 10/31/2024 11:12:57 10/31/20 24 10/31/2024 CMP (FEMA LE) BUN/creatini ne ratio 21.11 ratio Not Available [address] [facility] [address], [place], [address], 10/31/2024 11:12:57 10/31/20 24 10/31/2024 CMP (FEMA LE) eGFR calculated 66.8 Not Available [facility] [address] [facility] 1, [place], [address], 10/31/2024 11:12:57 10/31/20 24 10/31/2024 CMP (FEMA LE) total protein 6.7 g/dL 6.0-8. 5 Not Available [facility] [address] [facility], [place], [address], 10/31/2024 11:12:57 10/31/20 24 10/31/2024 CMP (FEMA LE) total bilirubin 0.4 mg/dL 0.2-1. 3 Not Available [facility] [address] [facility], [place], [address], 10/31/2024 11:12:57 10/31/20 24 10/31/2024 CMP (FEMA LE) albumin 3.9 g/dL 3.5-5. 5 Not Available [facility] [address] [facility] 1, [place], [address], 10/31/2024 11:12:57 10/31/20 24 10/31/2024 CMP (FEMA LE) globulin 2.8 calc Not Available [facility] [address] [facility] [address] [facility] 1, [place], [address], 10/31/2024 11:12:57 10/31/20 24 10/31/2024 CMP (FEMA LE) AST (SGOT) 29.0 U/L 0.0-46 .0 Not Available [facility] [address] [facility], [place], [address], 10/31/2024 11:12:57 12/20/20 24 10/31/2024 CMP (FEMA LE) altv (SGPT) 18.0 U/L 13.0-6 9.0 normal Not Available [facility] [address] [facility], [place], [address], 10/31/2024 11:12:57 10/31/20 24 10/31/2024 CMP (FEMA LE) A/G ratio 1.4 ratio Not Available [facility] [address] [facility] 1, [place], [address], 10/31/2024 11:12:57 10/31/20 24 10/31/2024 CMP (FEMA LE) ALP phos 49.0 U/L 30.0-1 40.0 normal Not Available [facility] [address] [facility] 1, [place], [address], 10/31/2024 11:12:57 10/31/20 24 10/31/2024 CMP (FEMA LE) calcium 8.4 mg/dL 8.4-10 .5 Not Available [facility] [address] [facility] 1, [place], [address], 10/31/2024 11:12:57 10/31/20 24 10/31/2024 CMP (FEMA LE) sodium 132.0 mmol/ L 136.0- 145.0 low Not Available [facility] [address] [facility] 1, [place], [address], 10/31/2024 11:12:57 10/31/20 24 10/31/2024 CMP (FEMA LE) potassium 3.9 mmol/ L 3.5-5. 1 Not Available [facility] [address] [facility] 1, [place], [address], 10/31/2024 11:12:57 10/31/20 24 10/31/2024 CMP (FEMA LE) chloride 96.0 mmol/ L 98.0-1 10.0 abnormal Not Available [facility] [address] [facility] 1, [place], [address], 10/31/2024 11:12:57 10/31/20 24 10/31/2024 CMP (FEMA LE) C02 29.0 mmol/ L 22.0-3 1.0 Not Available [facility] [address] [facility] 1, [place], [address], 10/31/2024 11:12:57 10/31/20 24 10/31/2024 CMP (FEMA LE) anion gap 7.0 calc Not Available [facility] [address] [facility] 1, [place], [address], 10/31/2024 11:12:57 10/31/20 24 10/31/2024 CMP (FEMA LE) osmolality 275.0 calc Not Available [facility] [address] [facility] 1, [place], [address], 10/31/2024 11:12:57 08/05/20 25 08/05/2025 CBC WBC 6.1 x10 4.0-10 .5 Not Available [facility] [address] [facility] 1, [place], [address], 08/05/2025 11:41:12 08/05/20 25 08/05/2025 CBC RBC 4.25 x10 3.50-5 .50 Not Available [facility] [address] [facility] 1, [place], [address], 08/05/2025 11:41:12 08/05/20 25 08/05/2025 CBC HGB 12.7 g/dL 12.0-1 6.0 Not Available [facility] [address] [facility] 1, [place], [address], 08/05/2025 11:41:12 08/05/20 25 08/05/2025 CBC HCT 38.8 % 37.0-4 7.0 Not Available [facility] [address] [facility] 1, [place], [address], 08/05/2025 11:41:12 08/05/20 25 08/05/2025 CBC MCV 91.3 fL 80.0-9 9.9 Not Available [facility] [address] [facility] 1, [place], [address], 08/05/2025 11:41:12 08/05/2008/05/2025 CBC MCH 29.8 pg 27.0-3 2.0 Not Available [facility] [address] [facility] 1, [place], [address], 08/05/2025 11:41:12 08/05/20 25 08/05/2025 CBC MCHC 32.6 g/dL 32.0-3 6.0 Not Available [facility] [address] [facility] 1, [place], [address], 08/05/2025 11:41:12 08/05/20 25 08/05/2025 CBC RDW 13.1 % 11.5-1 4.5 Not Available [facility] [address] [facility] 1, [place], [address], 08/05/2025 11:41:12 08/05/2008/05/2025 CBC plt 252.9 x10 140.0- 451.0 Not Available [facility] [address] [facility] 1, [place], [address], 08/05/2025 11:41:12 08/05/20 25 08/05/2025 CBC lymphocytes % 25.0 % 20.0-5 0.0 Not Available [facility] [address] [facility] 1, [place], [address], 08/05/2025 11:41:12 08/05/20 25 08/05/2025 CBC granulcytes % 61.3 % 30.0-7 0.0 Not Available [facility] [address] [facility] 1, [place], [address], 08/05/2025 11:41:12 08/05/20 25 08/05/2025 CBC monocytes % 9.9 % 2.0-16 .0 Not Available [facility] [address] [facility] 1, [place], [address], 08/05/2025 11:41:12 08/05/2008/05/2025 CBC granulcytes# 3.8 x10 Not Ale ilable [facility] [address] [facility] 1, [place], [address], 08/05/2025 11:41:12 08/05/2008/05/2025 CBC lymphocytes # 1.5 x10 Not Available [facility] [address] [facility] 1, [place], [address], 08/05/2025 11:41:12 08/05/2008/05/2025 CBC monocytes # 0.6 x10 Not Avai lable [facility] [address] [facility] 1, [place], [address], 08/05/2025 11:41:12 08/05/2008/05/2025 CMP (FEMA LE) glucose 98.0 mg/dL 60.0-9 9.0 Not Available [facility] [address] [facility] 1, [place], [address], 08/05/2025 12:02:08 08/05/2008/05/2025 CMP (FEMA LE) BUN (blood urea nitrogen) 18.0 mg/dL 10.0-2 6.0 Not Available [facility] [address] [facility] 1, [place], [address], 08/05/2025 12:02:08 08/05/2008/05/2025 CMP (FEMA LE) creatinine (serum) 0.8 mg/dL 0.4-1. 5 Not Available [facility] [address] [facility], [place], [address], 08/05/2025 12:02:08 08/05/2008/05/2025 CMP (FEMA LE) BUN/creatini ne ratio 22.50 ratio Not Available [facility] 805 [facility], [place], [address], 08/05/2025 12:02:08 08/05/2008/05/2025 CMP (FEMA LE) eGFR calculated 76.3 Not Available [facility] [address] [facility], [place], [address], 08/05/2025 12:02:08 08/05/2008/05/2025 CMP (FEMA LE) total protein 7.0 g/dL 6.0-8. 5 Not Available [facility] 8[address] [facility], [place], [address], 08/05/2025 12:02:08 08/05/2008/05/2025 CMP (FEMA LE) total bilirubin 0.6 mg/dL 0.2-1. 3 Not Available [facility] [address] [facility], [place], [address], 08/05/2025 12:02:08 08/05/2008/05/2025 CMP (FEMA LE) albumin 4.3 g/dL 3.5-5. 5 Not Available [facility] [address] [facility], [place], [address], 08/05/2025 12:02:08 08/05/2008/05/2025 CMP (FEMA LE) globulin 2.7 calc Not Available [facility] [address] [facility] 1, [place], [address], 08/05/2025 12:02:08 08/05/2008/05/2025 CMP (FEMA LE) AST (SGOT) 31.0 U/L 0.0-46 .0 Not Available [facility] [address] [facility] 1, [place], [address], 08/05/2025 12:02:08 08/05/2008/05/2025 CMP (FEMA LE) altv (SGPT) 19.0 U/L 13.0-6 9.0 normal Not Available [facility] [address] [facility], [place], [address], 08/05/2025 12:02:08 08/05/2008/05/2025 CMP (FEMA LE) A/G ratio 1.6 ratio Not Available [facility] [address] [facility] 1, [place], [address], 08/05/2025 12:02:08 08/05/2008/05/2025 CMP (FEMA LE) ALP phos 57.0 U/L 30.0-1 40.0 normal Not Available [facility] [address] [facility] 1, [place], [address], 08/05/2025 12:02:08 08/05/2008/05/2025 CMP (FEMA LE) calcium 9.5 mg/dL 8.4-10 .5 Not Available [facility] [address] [facility] 1, [place], [address], 08/05/2025 12:02:08 08/05/2008/05/2025 CMP (FEMA LE) sodium 137.0 mmol/ L 136.0- 145.0 Not Available [facility] [address] [facility] 1, [place], [address], 08/05/2025 12:02:08 08/05/2008/05/2025 CMP (FEMA LE) potassium 4.5 mmol/ L 3.5-5. 1 Not Available [facility] 805 [facility] 1, [place], [address], 08/05/2025 12:02:08 08/05/2008/05/2025 CMP (FEMA LE) chloride 102.0 mmol/ L 98.0-1 10.0 normal Not Available [facility] [address] [facility] 1, [place], [address], 08/05/2025 12:02:08 08/05/2008/05/2025 CMP (FEMA LE) C02 28.0 mmol/ L 22.0-3 1.0 Not Available [facility] [address] [facility] 1, [place], [address], 08/05/2025 12:02:08 08/05/2008/05/2025 CMP (FEMA LE) anion gap 7.0 calc Not Available [facility] 8[address] [facility] 1, [place], [address], 08/05/2025 12:02:08 08/05/2008/05/2025 CMP (FEMA LE) osmolality 284.9 calc Not Available [facility] [address] [facility] 1, [place], [address], 08/05/2025 12:02:08 08/05/2008/05/2025 LIPID PROFI LE (FEMA LE) cholesterol 256.0 mg/dL 0.0-20 0.0 high Not Available [facility] [address] [facility] 1, [place], [address], 08/05/2025 12:02:10 08/05/2008/05/2025 LIPID PROFI LE (FEMA LE) trig 151.0 mg/dL 0.0-15 0.0 high Not Available [facility] 8[address] [facility] 1, [place], [address], 08/05/2025 12:02:10 08/05/2008/05/2025 LIPID PROFI LE (FEMA LE) HDL - direct 65.0 mg/dL >40.0 Not Available [facility] 805 [facility] 1, [place], [address], 08/05/2025 12:02:10 08/05/2008/05/2025 LIPID PROFI LE (FEMA LE) VLDL - direct 30.2 mg/dL Not Available [facility] 805 [facility] 1, [place], [address], 08/05/2025 12:02:10 08/05/2008/05/2025 LIPID PROFI LE (FEMA LE) LDL - direct 160.8 mg/dL 0.0-13 0.0 high Not Available [facility] [address] [facility] 1, [place], [address], 08/05/2025 12:02:10 08/05/2008/05/2025 TSH TSH 1.83 uIU/m L 0.49-3 .82 Not Available [facility] 5 [facility] 1, [place], [address], 08/05/2025 12:02:13 08/05/2008/06/2025 VALPR OIC ACID valproic acid 49.3 mg/L 50.0-1 00.0 low Not Available [facility] [address] [place], [address], 08/06/2025 07:25:32 08/26/2008/27/2025 MEASL ES, MUMPS , AND RUBEL [...] measl es virus . For addit ional luisr yehuda ford refer to http: //[facility] adam French stDia gnost ics.c om/fa q/FAQ 162 (This link is being provi ded for seb broussard/ educpetr sosa purpo ses only. ) Not Available [facility] [address] [place], [address], 08/27/2025 09:09:12 08/26/2008/27/2025 MEASL ES, MUMPS , [...] tion with mumps virus . Not Available [facility] [address] [place], [address], 08/27/2025 09:09:12 08/26/2008/27/2025 MEASL ES, MUMPS , [...] with rubel la virus . Not Available [facility] [address], [place], [address], 08/27/2025 09:09:12 04/14/20 25 04/14/2025 MRI, knee, w/o contr ast No observ ation record ed. [email or web address] [facility] [address] [place], [address], 04/16/2025 13:56:38 07/15/20 25 07/15/2025 MAMMO , scree regina, digit al, bilat eral No observ ation record ed. [email or web address] [facility] [address] [place], [address], 07/16/2025 16:48:59 07/17/20 25 07/17/2025 MRI, brain , w/wo contr ast No observ ation record ed. [facility] [address] [place], [address], 07/17/2025 15:04:56 08/10/20 25 08/10/2025 elect romyo gram + nerve condu ction study No observ ation record ed. [facility] - [address], [place], [address], 08/27/2025 00:22:26 09/21/20 25 09/21/2025 elect luis antonio jordan am No observ ation record ed. [facility] [address] [place] [address], [phone], 09/22/2025 14:48:28 09/22/2009/21/2025 elect rocrobert corbingr am No observ ation record ed. [facility] ([facility]) [address] [place] [address], [phone], 09/23/2025 09:06:36 09/22/2009/21/2025 elect rocar diogr am No observ ation record ed. [facility] ([facility]) [address] [place] [address], [phone], 09/23/2025 10:04:50 Result Notes None recorded. Problems Name Problem SNOMED Code Status Onset Date Resolution Date Notes Provider Name and Address Organization Details Recorded Time Vocal cord paralysis 463637787 Active 2023 Luis Moreira MD [address] [place] [address], [phone] , [facility] 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 4 12:32:06 Raynaud's disease 365180086 Active 2023 Luis Moreira MD [address] [place] [address], [phone], [facility] 4 12:32:18 Seizure disorder 057638389 Active 2023 Luis Moreira MD [address] [place] [address], [address], [facility] 4 12:33:11 Pain of left shoulder joint 9782976195419 9109 Active 2023 Luis Moreira MD [address] [place] [address], [address] [place] [address] 5, [facility] 4 09:43:34 Dysfunction of bilateral eustachian tubes 1247301512437 100 Active 2023 Luis Moreira MD [address] [place] [address], [address] [place] [address] 5, [facility] 4 10:43:11 Nausea 885475098 Active 2023 Luis Moreira MD [address] [place] [address], [address] [place] [address] 5, [facility] 10:36:39 Moderate dehydration 8539918614740 Active 2023 Luis Moreira MD [address] [place] [address] 5, [facility] 10:36:45 Acute upper respiratory infection 11540177 Active 2023 Luis Moreira MD [address] [place] [address] 5, [facility] 10:36:51 Acute bacterial bronchitis 722574175 Active 2023 Luis Moreira MD [address] [place] [address] 5, [facility] 11:54:20 Pain of knee region 3567371503 Active 2024 Luis Moreira MD [address] [place] [address] 5, [facility] 5 12:36:40 Polyneuropa thy 78779959 Active 2024 Luis Moreira MD [address] [place] [address] 5, [facility].CFlorentin 16:37:05 Osteoporosi s 04729738 Active 2024 Luis Moreira MD [address] [place] [address], [phone] 5, [facility].L.CFlorentin 16:45:17 Migraine 81106784 Active 2024 Luis Moreira MD [address] [place] [address], [phone] 5, [facility], L.MineCFlorentin 16:54:05 Bilateral atheroscler osis of carotid arteries 3946464985158 04 Active 2024 Luis Moreira MD [address] [place] [address], [phone] 5, [facility], [place] 12:03:56 Mixed hyperlipide steven 756038393 Active 2024 Luis Moreira MD [address] [place] [address], [phone] 5, [facility], L.LFlorentinCFlorentin 12:05:03 Vocal cord dysfunction 358687360 Active 2024 Luis Moreira MD [address] [place] [address], [phone] 5, [facility], L.LFlorentinCFlorentin 12:14:30 Chest pain 68756599 Active 2024 Luis Mroeira MD [address] [place] [address], [phone] 5, [facility], L.LFlorentinCFlorentin 12:01:00 Problem Notes None recorded. Procedures Surgical History Date Name Laterality Status Provider Name and Address Organization Details Recorded Time operation on shoulder joint completed Subha NIEVES Donnie power [facility], [place] 08/26/2025 11:49:04 excision of lipoma completed Subha Marin [place] - [facility], Mine[place]iela 08/26/2025 11:49:28 Tubal Ligation completed Subha Marin [facility], [place] 08/26/2025 11:49:36 [facility] cord [facility] 11:49:56 Imaging Results None recorded. Procedure [...] Not available Not available Not available 02/04/2023 40500 8003 SNOMED JIM norris [facility], MineLFlorentinCFlorentin 3 15:46:41 57723 sulfabenz amide medicatio n Not available Not available Not available 06/09/2023 45805 RxNorm Comme nt: Recor ded 01/23 8:19A M by Rod Bhardwaj Offic e Visit ; Promo re; Signi rei ce: *; Reaso n: Drug aller gy; ; Not Available [facility] 3 02:28:29 06338 Tegretol medicatio n Not available Not available Not available 10/31/2024 9 RxNorm Subha norris [facility], L.LFlorentinCFlorentin 4 10:27:52 Medications Name Sig Start Date [...] tartrate daily 04/11 completed 0; Recorded 01/24/20 23 8:19AM by Jim Bhardwaj, Office Visit; Not Available Not Available Not Available flecainid e two times daily 04/11 completed 0; Recorded 01/24/20 23 8:19AM by Jim Bhardwaj, Office Visit; Not Available Not Available Not Available fluticaso ne propion-s almeterol daily 04/11 completed 0; Recorded 01/24/20 23 8:19AM by Jim Bhardwaj, Office Visit; Not Available Not Available Not Available Calcium with Vitamin D active Not Available Not Available No t Available Vagifem 10 mcg vaginal tablet INSERT 1 TABLET TWICE A WEEK BY VAGINAL ROUTE DIRECTED FOR 30 DAYS. 04/11 completed Not Available Not Available Not Available D3-2000 1 09/21 completed Not Available Not Available Not Available Restasis MultiDose 0.05 % eye drops APPLY 1 DROP INTO BOTH EYES TWICE DAILY active Not Available Not Available No t Available Vitals Date Recorded Body height Body mass index (BMI) Body weight Body temperature Heart rate Oxygen saturation Oxygen saturation in Arterial blood by Pulse oximetry Systolic And Diastolic Provider Name and Address Organization Details Last Updated DateTime 5 157.48 cm 22.1 kg/m2 93261.6 8 g 97.4 [degF] 57 /min 94 % 94 % 128/78 mm[Hg] [facility] 12:14:20 Date Recorded Body height Body mass index (BMI) Body weight Oxygen saturation Oxygen saturation in Arterial blood by Pulse oximetry Systolic And Diastolic Provider Name and Address Organization Details Last Updated DateTime 5 157.48 cm 22.5 kg/m2 21705.8 6 g 99 % 99 % 123/63 mm[Hg] Cassandra Lopez [facility] 5 16:27:26 Date Recorded Body height Body mass index (BMI) Body weight Oxygen saturation Oxygen saturation in Arterial blood by Pulse oximetry Heart rate Respiratory rate Body temperature Systolic And Diastolic Provider Name and Address Organization Details Last Updated DateTime 5 157.48 cm 22.4 kg/m2 79903.7 1 g 99 % 99 % 54 /min 18 /min 97 [degF] 104/70 mm[Hg] Subha Marin [facility] 5 11:45:57 Date Recorded Body height Body mass index (BMI) Body weight Body temperature Oxygen saturation Oxygen saturation in Arterial blood by Pulse oximetry Heart rate Systolic And Diastolic Provider Name and Address Organization Details Last Updated DateTime 5 157.48 cm 22.3 kg/m2 56118.2 7 g 97.2 [degF] 98 % 98 % 75 /min 110/76 mm[Hg] [facility] 5 11:42:06 Date Recorded Body height Body mass index (BMI) Body weight Body temperature Oxygen saturation Oxygen saturation in Arterial blood by Pulse oximetry Heart rate Systolic And Diastolic Provider Name and Address Organization Details Last Updated DateTime 4 157.48 cm 21.1 kg/m2 14215.9 2 g 97.2 [degF] 99 % 99 % 53 /min 118/70 mm[Hg] KJ HEATH [facility] 4 10:58:24 Social History Question Answer Notes LastModified by [employer] Details LastModified Time Tobacco Smoking Status Never Smoker [facility] 04/03/2025 12:24:26 What Is Your Level Of Caffeine Consumption? Moderate [email or web address] Information not available 04/03/2025 Do You Or Have You Ever Used Marijuana? Never Used [email or web address] Information not available 08/26/2025 What Was The Date Of Your Most Recent Tobacco Screening? 09/21/2025 Information not available 09/21/2025 Sex: Unknown Functional Status Question Answer Note LastModified by [employer] Details LastModified Time Do you use any illicit or recreational drugs? No [email or web address] Information not available 04/03/2025 What is your level of alcohol consumption? None Information not available 04/03/2025 Mental Status None recorded. Family History Nothing Reported. Medical History No medical history recorded. Gynecological HistoryNo gynecological history recorded. Obstetrics History GPAL:G 0 P 0 0 0 0 Immunizations Vaccine Type Date Status Note Provider Nam e and Address Organization Details Recorded Time Influenza, split virus, quadrivalent, PF 4 completed Not Available [facility] 09/21/2025 11:39:01 Influenza, split virus, quadrivalent, PF 6 completed Not Available [facility] 09/21/2025 11:39:01 Influenza, split virus, quadrivalent, PF 7 completed Not Available [facility] 09/21/2025 11:39:01 Influenza, split virus, quadrivalent, PF 8 completed Not Available [facility] 09/21/2025 11:39:01 zoster recombinant 9 completed Not Available [facility] 09/21/2025 11:39:01 zoster recombinant 0 completed Not Available [facility] 09/21/2025 11:39:01 COVID-19, mRNA, LNP-S, PF, 100 mcg/0.5mL dose or 50 mcg/0.25mL dose 1 completed Not Available [facility] 09/21/2025 11:39:01 COVID-19, mRNA, LNP-S, PF, 100 mcg/0.5mL dose or 50 mcg/0.25mL dose 1 completed Not Available [facility] 09/21/2025 11:39:01 Influenza, split virus, quadrivalent, PF 2 completed Not Available [facility] 09/21/2025 11:39:01 Influenza, MDCK, quadrivalent, PF 3 completed Not Available [facility] 09/21/2025 11:39:01 Influenza, adjuvanted, trivalent, PF 5 completed Not Available [facility] 09/21/2025 11:39:01 Pneumococcal conjugate PCV20, polysaccharide SEQ645 conjugate, adjuvant, PF 4 completed Luis Moreira MD [address] [place] [address], [phone], [facility], [place] 04/13/2024 09:40:24 Tdap 4 completed Luis Moreira MD [address] [place] [address], [phone], [facility], [place] 04/13/2024 09:40:24 Past Encounters Encounter ID Performer Location Encounter Start Date Encounter Closed Date Diagnosis/Indication Diagnosis SNOMED-CT Code Diagnosis ICD10 Code Diagnosis IMO Codes Diagnosis Note [id number] JUAN C FINLEY PA-C [facility] ([facility]) [address] [place] [address] [phone] 5 02/04/2023 14:54:35 02/04/2023 16:41:33 Dysfunction of bilateral eustachian tubes 7970332985 126787 H69.93 Flonase otc. Claritin D one po bid OTC>She will try this first. 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 Patient was agreeable to do both. Pain of le ft shoulder joint 3812600438 3283750 M25.512 Discussed doing physical therapy but patient wants to try home exercises first. Handout provided [id number] Luis Moreira MD [facility] ([facility]) [address] [place] [address] [phone] 5 09/26/2024 10:19:32 09/26/2024 10:53:49 Dysfunction of bilateral eustachian tubes 6956653249 116431 H69.93 Exam is more consistent eustachian tube dysfunctio n and this would correlate with the patient's symptoms. Discussed using Flonase daily. [id number] Luis Moreira MD [facility] ([facility]) [address] [place] [address] [phone] 5 10/31/2024 10:07:19 10/31/2024 12:22:47 Nausea 731073353 R11.0 Labs were obtained and and were normal except for mild hyponatrem ia and hypochlore steven Moderate dehydration 685 0396796 105 E86.0 This patient was given a bolus of normal saline with improvemen t of the patient's fatigue and appearance . Patient was encouraged to remain push fluids to try to maintain hydration. Acute bact erial bronchitis 082978562 J20.9 Given the significan t symptoms the patient presents we will treat her for atypical lung infection. Will start azithromyc in. [id number] Luis Moreira MD [facility] ([facility]) [address] [place] [address] [phone] 5 11/04/2024 10:48:50 11/04/2024 11:26:59 Nausea 923998602 R11.0 Continue with Zofran as needed. This could be related to antibiotic s and hopefully this will stop after the azithromyc in is completed. Acute uppe r respiratory infection 99572948 J06.9 She is slowly and steadily improving. The patient is still very fatigued. Anticipate her symptoms will continue to improve. The patient was encouraged to get out of bed and move some. She used to push fluids. Complete entire course of antibiotic s. [id number] Lius Moreira MD [facility] ([facility]) [address] [place] [address] [phone] 5 04/03/2025 12:05:37 04/03/2025 13:03:53 Pain of knee region 8162361442 M25.561 83144182 Concerned about degenerati ve meniscal tear on the medial side. Patient has completed conservati ve therapy including physical therapy without improvemen t, so the neck step would be MRI. [id number] Luis Moreira MD [facility] ([facility]) [address] [place] [address] [phone] 5 07/02/2025 15:23:40 07/02/2025 16:50:07 Polyneuropathy 67033324 G62.9 [id number] Patient's symptoms seem to be consistent with polyneurop athy. This was discussed with the patient and the patient is interested in actual diagnosis and would like to go ahead and proceed with nerve conduction study. Patient does have a neurologis t that she sees in [facility]. We will send referral to Dr. Mendoza. Osteoporosis 18448626 M8 1.0 53137117 The patient has known osteoporos is diagnosed through DEXA. The patient does have a prescripti on for alendronat e but she never started the medication . Patient has been concerned about possible side effects. This was discussed at length with the patient and the patient will go ahead and start her alendronat e at this time. Migraine 15390128 G43.90 9 83508035 Patient has had a new onset and change in headaches. Recommend MRI given this change. [id number] Luis Moreira MD [facility] ([facility]) [address] [place] [address] [phone] 5 08/26/2025 11:39:11 08/26/2025 12:25:53 Bilateral atherosclerosis of carotid arteries 0533901972 22108 I65.23 5369667 - Initiate statin therapy; routine follow-up as required. Mixed hyperlipidemia 267 586937 E78.2 60541 - Start statin treatment; benefits discussed. Gastroesop hageal reflux disease 391049912 K21.9 - Pepcid recommende d; dietary adjustment s advised. Osteoporosis 69951698 M8 1.0 - Plan to start Fosamax; supplement calcium and vitamin D. Vocal cord dysfunction 865139244 J38.3 - following with ENT Counseling 648919295 Z71 .85 25021065 - patient concerned about measles immunity and would like it checked. [id number] Luis Moreira MD [facility] ([facility]) [address] [place] [address] [phone] 5 09/21/2025 11:37:34 09/21/2025 12:46:01 Chest pain 30191532 R07.9 66711641 - EKG pending review. EKG: HR 57, [...] cardiology under Dr. Brown s care for comprehens ami evaluation . Health Concerns Section Related Observation LastModified by Organization Detai ls LastModified Time None Recorded Concern Status LastModified by Organization Details LastModified Time None Recorded Advance Directives Directive None Recorded Payers Insurance Date Sequence Insurance Name Policy Number Policy Cotton Covered Member ID Cotton Member ID Guarantor Name 03/31/2025 1 [employer] (POS) [id number] 01 Terri Franklin [id number] Terri Franklin 12/03/2024 1 UNSPECIFIED REMIT PAYOR Terri Musein 09/21/[address] [facility] (MEDICARE REPLACEMENT/ ADVANTAGE - PPO) [id number] Terri Mckee Franklin [id number] Terri Musein Notes Date Note Type Note Provider Name and Address Organization Details Recorded Time 11/04/20 24 text/htm l NauseaReported by PatientHPIFor onset/timing, patient reportsworse in the morning,worse in the afternoon, andworse in the evening. For associated symptoms, patient reportsdiarrhea,fatigue, andweaknessbut reportsno abdominal pain,no fever, andno vomiting. For duration, patient reportspresent for 1-2 weeks. For context, patient reportsno one else with similar symptoms.ROS as noted in the HPI Pt is here for f/u on fluids. Pt is still very fatigue and nausea. Pt states that she is able to get liquids down, still not much of an appetite. Overall she think she still doing a little better. Patient has been using Zofran to help with nausea. Luis Moreira MD [address] [place] [address], [phone], [facility] 11/06/2024 16:14:17 04/03/20 text/htm l Musculoskeletal PainReported by PatientHPIFor quality, patient reportssharp. For severity, patient reportsinterferes with sleep. For location, patient reportslumbar spine(right knee). For duration, patient reportspresent for 1-6 months. For timing, patient reportsintermittent,pain at night, andgradual. For context, patient reportsprior back problems (back pain). For alleviating factors, patient reportsmedications: advilandwarm compress(she states the pain can be more intense after sitting for prolonge periods of time). For adls affected, patient reportswalkingandclimbing stairs. She would like to discuss her right knee pain that began 3-4 months prior. When it is at its worst, it is a sharp burning pain to the left of the knee cap. Dr. Damaso España from [facility] ordered the XR and PT which both have been completed. She had 6 session of PT with [facility] and states that aggravated her knee more. She takes Advil when it is throbbing.She states that her knee catches and pops often. Luis Moreira MD [address] [place] [address], [phone], [facility] 04/06/2025 16:39:33 07/02/20 25 text/htm l ROS as noted in the HPI Patient is here today with c/o upper back and lower back painwhen its at its worse 04/21 but the pain is not constant, she does notice this is worse when she is laying down and sitting is worse then standingShe now has tingling in her BLE from the knee down most of the time. Patient also has questions about osteoporosis. Patient has been diagnosed previously but has never started treatment. The patient has had new onset of severe headaches over the last several months. Luis Moreira MD [address] [place] [address], [phone], [facility] 07/04/2025 16:55:38 08/26/20 25 text/htm l The patient is a 65-year-old female presenting for a follow-up concerning her blood work and gastrointestinal discomfort. She reports bilateral atherosclerosis of the carotid arteries, mixed hyperlipidemia, and recent painful episodes in the upper abdomen, thought to be gastroesophageal reflux, resolved with antacids. Osteoporosis is also noted, for which the initiation of Fosamax is planned shortly. Vocal cord dysfunction with worsening voice changes is present, and thyroid function remains stable. - Labs: Cholesterol levels moderately elevated; potential indication for statin therapy. - Tests and Diagnostics: Carotid doppler showed less than 50% stenosis. Luis Moreira MD [address] [place] [address], [phone], [facility] 08/26/2025 12:45:19 09/21/20 25 text/htm l The patient is a 65-year-old female presenting [...] Order for an EKG Luis Moreira MD [address] [place] [address], [phone], [facility] 09/21/2025 17:28:41 OBGyn Episode No OBEpisode recorded.
--- OUTSIDE RECORDS SUMMARY | 2025-09-23 17:47 | XMS_ITS | Encounter Summary ---
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
--- OUTSIDE RECORDS SUMMARY | 2025-09-23 17:47 | XMS_ITS | Encounter Summary ---
Author Organization [facility] Address [address] [place] [address] Care Team Providers Care Computer Systems Analyst Name Role Phone Carlee Rosis MD Primary Care Provid er Encounter Details Date Type Department Care Team (Latest Contact Info) Description 11/07/2006 Outpatient Historical [facility] 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
--- OUTSIDE RECORDS SUMMARY | 2025-09-23 17:47 | XMS_ITS | Encounter Summary ---
Author Organization [facility] Address [address] [place] [address] Care Team Providers Care Medical Technologist Prn Name Role Phone Carlee Rossi MD Primary Care Provid er Encounter Details Date Type Department Care Team (Latest Contact Info) Description 09/26/2006 Outpatient Historical [facility] [address] [phone] Ramona Gary MD NO ADDRESS ON FILE Lump or Mass in Breast (Primary Dx) Social History Tobacco Use Types Packs/Day Years Used Date Smoking Tobacco: Never Assessed Comments Unknown Sex and Gender Information Value Date Recorded Sex Assigned at Not on file 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
--- OUTSIDE RECORDS SUMMARY | 2025-09-23 17:47 | XMS_ITS | Encounter Summary ---
Author Organization [facility] Address [address] [place] [address] Care Team Providers Care Vendor Quality Supervisor Name Role Phone Carlee Rossi MD Primary Care Provid er Encounter Details Date Type Department Care Team (Latest Contact Info) Description 10/24/2006 Outpatient [facility] [address] [place] [phone] Audi Elias MD [address] [place] [address] Other Voice Disturbance (Primary Dx); Chronic Laryngitis; Other Diseases of Vocal Cords Social History Tobacco Use Types Packs/Day Years Used Date Smoking Tobacco: Never Assessed Comments Unknown Sex and Gender Information Value Date Recorded Sex Assigned at Not on file Legal Sex Female 3:43 AM NETWORK SUPPORT ANALYST Gender Identity Not on file Sexual Orientation Not on file documented as of this encounter Plan of Treatment Not on file documented as of this encounter Visit Diagnoses Diagnosis Other voice and resonance disorders- Primary Chronic laryngitis Other diseases of vocal cords documented in this encounter Care Teams Vendor Quality Supervisor Relationship Specialty Start Date End Date Carlee Rossi MD PCP - General 11/17/05 documented as of this encounter
--- OUTSIDE RECORDS SUMMARY | 2025-09-23 17:47 | XMS_ITS | Encounter Summary ---
Author Organization [facility] Address [address] [place] [address] Care Team Providers Care Bias Binding Folder Name Role Phone Carlee Rossi MD Primary Care Provid er Encounter Details Date Type Department Care Team (Late st Contact Info) Description 08/08/2005 Outpatient Historical [facility] Social History Tobacco Use Types Packs/Day Years Used Date Smoking Tobacco: Never Assessed Comments Unknown Sex and Gender Information Value Date Recorded Sex Assigned at Not on file Legal Sex Female 3:43 AM BED AND BREAKFAST COOK Gender Identity Not on file Sexual Orientation Not on file documented as of this encounter Plan of Treatment Not on file documented as of this encounter Visit Diagnoses Not on filedocumented in this encounter Care Teams Bias Binding Folder Relationship Specialty Start Date End Date Carlee Rossi MD PCP - General 11/17/05 documented as of this encounter
--- OUTSIDE RECORDS SUMMARY | 2025-09-23 17:47 | XMS_ITS | Encounter Summary ---
Author Organization [facility] Address [address] [place] [address] Care Team Providers Care General Service Technician Name Role Phone Carlee Rossi MD Primary Care Provid er Encounter Details Date Type Department Care Team (Late st Contact Info) Description 08/03/2005 Outpatient Historical [facility] Social History Tobacco Use Types Packs/Day Years Used Date Smoking Tobacco: Never Assessed Comments Unknown Sex and Gender Information Value Date Recorded Sex Assigned at Not on file Legal Sex Female 3:43 AM ELECTROPLATER Gender Identity Not on file Sexual Orientation Not on file documented as of this encounter Plan of Treatment Not on file documented as of this encounter Visit Diagnoses Not on filedocumented in this encounter Care Teams General Service Technician Relationship Specialty Start Date End Date Carlee Rossi MD PCP - General 11/17/05 documented as of this encounter
--- OUTSIDE RECORDS SUMMARY | 2025-09-23 17:47 | XMS_ITS | Encounter Summary ---
Author Organization [facility] Address [address] [place] [address] Care Team Providers Care Agronomy Instructor Name Role Phone Carlee Rossi MD Primary Care Provid er Encounter Details Date Type Department Care Team (Late st Contact Info) Description 08/04/2005 Outpatient Historical [facility] Social History Tobacco Use Types Packs/Day Years Used Date Smoking Tobacco: Never Assessed Comments Unknown Sex and Gender Information Value Date Recorded Sex Assigned at Not on file Legal Sex Female 3:43 AM SPEECH PATHOLOGIST ASSISTANT Gender Identity Not on file Sexual Orientation Not on file documented as of this encounter Plan of Treatment Not on file documented as of this encounter Visit Diagnoses Not on filedocumented in this encounter Care Teams Agronomy Instructor Relationship Specialty Start Date End Date Carlee Rossi MD PCP - General 11/17/05 documented as of this encounter
--- OUTSIDE RECORDS SUMMARY | 2025-09-23 17:47 | XMS_ITS | Encounter Summary ---
Author Organization [facility] Address [address] [place] [address] Care Team Providers Care Drivability Technician Name Role Phone Carlee Rossi MD Primary Care Provid er Encounter Details Date Type Department Care Team (Latest Contact Info) Description 10/23/2006 Outpatient [facility] [address] Ear, Nose and Throat E [place] [address] [place] [address] [place] [id number] AlzadaYoung sosa MD NO ADDRESS ON FILE Other Voice Disturbance (Primary Dx); Chronic Laryngitis Social History Tobacco Use Types Packs/Day Years Used Date Smoking Tobacco: Never Assessed Comments Unknown Sex and Gender Information Value Date Recorded Sex Assigned at Not on file Legal Sex Female 3:43 AM AUTO DAMAGE TRAINEE Gender Identity Not on file Sexual Orientation Not on file documented as of this encounter Plan of Treatment Not on file documented as of this encounter Visit Diagnoses Diagnosis Other voice and resonance disorders- Primary Chronic laryngitis documented in this encounter Care Teams Drivability Technician Relationship Specialty Start Date End Date Carlee Rossi MD PCP - General 11/17/05 documented as of this encounter
--- OUTSIDE RECORDS SUMMARY | 2025-09-23 17:47 | XMS_ITS | Encounter Summary ---
Author Organization [facility] Address [address] [place] [address] Care Team Providers Care Vamp Cut Out Worker Name Role Phone Carlee Rossi MD Primary Care Provid er Encounter Details Date Type Department Care Team (Late st Contact Info) Description 02/23/2010 Ancillary Orders [facility] [address] [facility] [address] [place] [address] Carlee Rossi MD [address] [facility] [address] [place] [address] Other Screening Mammogram Social History Tobacco Use Types Packs/Day Years Used Date Smoking Tobacco: Never Alcohol Use Standard Drinks/Week Comments No 0 (1 standard drink = 0.6 oz pur e alcohol) Comments No Sex and Gender Information Value Date Recorded Sex Assigned at Not on file Legal Sex Female 3:43 AM SOFT WORK WRAPPER EXAMINER Gender Identity Not on file Sexual Orientation Not on file documented as of this encounter Plan of Treatment Not on file documented as of this encounter Visit Diagnoses Diagnosis Other screening mammogram documented in this encounter Care Teams Vamp Cut Out Worker Relationship Specialty Start Date End Date Carlee Rossi MD PCP - General 11/17/05 documented as of this encounter
--- OUTSIDE RECORDS SUMMARY | 2025-09-23 17:47 | XMS_ITS | Encounter Summary ---
Author Organization [facility] Address [address] [place] [address] Care Team Providers Care Radiology Scheduler Name Role Phone Carlee Rossi MD Primary Care Provid er Reason for Referral * Radiology Services (Routine) - Closed Specialty Diagnoses / Procedures Referred By Contmaolu t Referred To Contact Diagnoses Visit for screening mammogram Procedures MAMMO SCRN BILAT 3D [place] W OR WO CAD CHG SCREENING MAMMOGRAPHY BI 2-VIEW BREAST INC CAD CHG SCREENING DIGITAL BREAST TOMOSYNTHESIS BI Carlee Rossi MD Phone: tel: fax: Referral ID Status Reason Start Date Expiration Date Visits Re quested Visits Authorized [id number] Closed 02/27/2019 03/29/2020 1 1 Encounter Details Date Type Department Care Team (Latest Contact Info) Description 02/27/2019 Ancillary Orders [facility] Pre-Registration [place] CALL TO MAKE APPOINTMENT ONLY [address] [place] [address] Carlee Rossi MD [address] [facility] [address] [place] [address] Visit for screening mammogram Social History Tobacco Use Types Packs/Day Years Used Date Smoking Tobacco: Never Smokeless Tobacco: Never Alcohol Use Standard Drinks/Week Comments No 0 (1 standard drink = 0.6 oz pur e alcohol) Comments No Sex and Gender Information Value Date Recorded Sex Assigned at Not on file Legal Sex Female 3:43 AM RETINAL ANGIOGRAPHER Gender Identity Not on file Sexual Orientation Not on file Occupation Industry Job Start Date Job End Date Not on file Not on file Not on file Not on file documented as of this encounter Plan of Treatment Not on file documented as of this encounter Results * MAMMO SCRN BILAT 3D [place] W OR WO CAD (04/01/2019 8:35 AM CDT) Anatomical Region Laterality Modality Breast Bilateral Mammography Narrative 04/02/2019 4:11 PM CDT Bilateral Digital Mammogram with CAD and 3D Tomography Reason for Exam: Screening Comparison: Compared to: 09/11/2017 MAMMO SCRN BILAT 3D [place] W OR WO CAD, 07/11/2016 MAMMO DIGITAL SCREEN BILAT, 05/25/2014 MAMMO DIGITAL DIAG BILAT, 02/14/2013 MAMMO DIGITAL SCREEN BILAT, 03/25/2012 MAMMO DIGITAL SCREEN BILAT, 03/10/2011 MAMMO DIGITAL SCREEN BILAT, 03/03/2010 MAMMO DIGITAL SCREEN BILAT, and 01/29/2009 MAMMO SCREENING BILAT Technique: 3D MLO and CC digital [...] encounter Visit Diagnoses Diagnosis Visit for screening mammogram Other screening mammogram Visit for screening mammogram Other screening mammogram documented in this encounter Care Teams Radiology Scheduler Relationship Specialty Start Date End Date Carlee Rossi MD PCP - General 11/17/05 documented as of this encounter
--- OUTSIDE RECORDS SUMMARY | 2025-09-23 17:47 | XMS_ITS | Encounter Summary ---
Author Organization [facility] Address [address] [place] [address] Care Team Providers Care Chamber Magistrate Name Role Phone Carlee Rossi MD Primary Care Provid er Reason for Referral * Outpatient Services (Routine) - Closed Specialty Diagnoses / Procedures Referred By Franchesca bergeron Referred To Contact Diagnoses Visit for screening mammogram Procedures MAMMO SCRN BILAT 3D [place] W OR WO CAD MAMMO SCREEN BILAT W OR WO CAD Carlee Rossi MD Phone: tel: fax: Referral ID Status Reason Start Date Expiration Date Visits Re quested Visits Authorized [id number] Closed 07/26/2017 08/26/2018 1 1 Encounter Details Date Type Department Care Team (Latest Contact Info) Description 07/26/2017 Ancillary Orders [facility] Pre-Registration [place] CALL TO MAKE APPOINTMENT ONLY [address] [place] [address] Carlee Rossi MD [address] [facility] [address] [place] [address] Visit for screening mammogram Social History Tobacco Use Types Packs/Day Years Used Date Smoking Tobacco: Never Smokeless Tobacco: Never Alcohol Use Standard Drinks/Week Comments No 0 (1 standard drink = 0.6 oz pur e alcohol) Comments No Sex and Gender Information Value Date Recorded Sex Assigned at Not on file 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 Gender Identity Not on file Sexual Orientation Not on file Occupation Industry Job Start Date Job End Date Not on file Not on file Not on file Not on file documented as of this encounter Plan of Treatment Not on file documented as of this encounter Results * MAMMO SCRN BILAT 3D [place] W OR WO CAD (09/11/2017 1:04 PM CDT) Anatomical Region Laterality Modality Breast Bilateral Mammography Narrative 09/12/2017 8:39 AM CDT Bilateral Mammogram Reason for Exam: Screening Comparison: Compared to: 07/11/2016 MAMMO DIGITAL SCREEN BILAT, 05/25/2014 MAMMO DIGITAL DIAG BILAT, 02/14/2013 MAMMO DIGITAL SCREEN BILAT, 03/25/2012 MAMMO DIGITAL SCREEN BILAT, and 03/10/2011 MAMMO DIGITAL SCREEN BILAT Technique: 3D MLO [...] significant new findings since the prior mammogram(s). Stable scattered benign-appearing calcifications are seen bilaterally. A left breast biopsy clip is present. Carlee Rossi MD MAMMO ORDERABLES Fin al Result documented in this encounter Visit Diagnoses Diagnosis Visit for screening mammogram Other screening mammogram Visit for screening mammogram Other screening mammogram documented in this encounter Care Teams Chamber Magistrate Relationship Specialty Start Date End Date Carlee Rossi MD PCP - General 11/17/05 documented as of this encounter
--- OUTSIDE RECORDS SUMMARY | 2025-09-23 17:47 | XMS_ITS | Encounter Summary ---
Author Organization [facility] Address [address] [place] [address] Care Team Providers Care Business Development Agent Name Role Phone Carlee Rossi MD Primary Care Provid er Encounter Details Date Type Department Care Team (Latest Contact Info) Description 10/03/2006 Outpatient Historical [facility] 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
--- NOTE | 2025-09-23 17:50 | PC.NURSE ---
patient ekg delay due to patient going to bathroom directly after registration. triage nurse is waiting for patient to complete bathroom stop.
[2025-09-23 18:11] LABS: Hematocrit 37.0 % (36-47); Hemoglobin 12.30 g/dL (11.27-16.99); Mean Corpuscular HGB Conc 33.2 g/dL (30-55); Mean Corpuscular Hemoglobin 29.2 pg (27-33); Mean Corpuscular Volume 87.9 fl (85-98); Nucleated Red Blood Cells % 0 %; Platelet Count 267 10^3/cmm (157-399); Red Blood Count 4.21 10^6/uL (3.85-5.65); White Blood Count 7.61 10^3/uL (3.29-11.43)
--- NOTE | 2025-09-23 18:14 | W.ED.CHESTPA ---
HPI - Chest Pain General: Chief Complaint: Chest Pain Stated Complaint: CP SOB Time Seen by Provider: 09/23/25 17:51 History of Present Illness: 65-year-old female with a history of PSVT on flecainide and metoprolol who presents to the emergency room with chest pain. She has had a couple different episodes. 1 last Sunday that was a squeezing type pressure that lasted for an hour or 2 but she did not come in. Today she has been having more of a burning pressure pain in her epigastric region. Family encouraged her to come in to have this worked up. She had spoke with Dr. Brown and they were planning on a stress test but the continued pain and increased blood pressure made her feel like she needed to come in and be seen. No cough. No fever. Related Data Home Medications ?Medication ?Instructions ?Recorded ?Confirmed flecainide 50 mg tablet 50 mg PO Q12H 02/22/22 05/26/25 metoprolol succinate 25 mg 12.5 mg PO DAILY 02/22/22 05/26/25 tablet,extended release 24 hr valproic acid 250 mg capsule 250 mg PO TID 02/22/22 05/26/25 Previous Rx's ?Medication ?Instructions ?Recorded medial sock turner brace (right) #1 ea 05/26/25 Allergies Allergy/AdvReac Type Severity Reaction Status Date / Time carbamazepine (From Tegretol) Allergy Mild Rash Verified 04/20/25 14:11 Sulfa (Sulfonamide Allergy Mild Rash Verified 04/20/25 14:11 Antibiotics) Review of Systems Narrative: Constitutional symptoms: Negative except as documented in HPI. Skin symptoms: Negative except as documented in HPI. Eye symptoms: Negative except as documented in HPI. ENMT symptoms: Negative except as documented in HPI. Respiratory symptoms: Negative except as documented in HPI. Cardiovascular symptoms: Negative except as documented in HPI. Gastrointestinal symptoms: Negative except as documented in HPI. Genitourinary symptoms: Negative except as documented in HPI. Musculoskeletal symptoms: Negative except as documented in HPI. Neurologic symptoms: Negative except as documented in HPI. Psychiatric symptoms: Negative except as documented in HPI. Endocrine symptoms: Negative except as documented in HPI. PFS ED PFSH: Medical History (Updated 09/23/25 @ 19:56 by Kristine Watson MD) PSVT (paroxysmal supraventricular tachycardia) Social History Smoking and tobacco/nicotine status: never used tobacco/nicotine Second hand smoke exposure: No Alcohol intake: never Substance/Drug Use: never Physical Exam Narrative: EXAM NARRATIVE: General: Alert, no acute distress. Skin: Warm, dry. Head: Normocephalic, atraumatic. Neck: Supple, trachea midline. Eye: Extraocular movements are intact. Ears, nose, mouth and throat: mucosa moist. Cardiovascular: Regular, Normal peripheral perfusion. Respiratory: Lungs are clear to auscultation, respirations are non-labored, breath sounds are equal, Symmetrical chest wall expansion. Gastrointestinal: Soft, Nontender, Non distended Musculoskeletal: Normal ROM, no deformity. Neurological: Alert and oriented, No focal neurological deficit observed. Psychiatric: Cooperative, appropriate mood & affect. Course Vital Signs: Vital signs: Vital Signs Temperature 97.4 F L 09/23/25 17:57 Pulse Rate 61 09/23/25 18:26 Respiratory Rate 16 09/23/25 17:57 Blood Pressure 170/67 09/23/25 18:26 Pulse Oximetry 100 09/23/25 18:26 Oxygen Delivery Me thod Room Air 09/23/25 18:26 MDM - Chest Pain Medical Decision Making Medical decision making Patient's reason for coming to the emergency room: Social determinants: Retired, . Her and a daughter who is medical are here. I reviewed the patient's medical record. Patient follows with Dr. Brown. Most recent office visit was April of this year. Ever she does have a he ordered a stress test given her chest pain recently. I reviewed the patient's current home meds Patient does take flecainide and metoprolol. Alternate historians: None Differential diagnosis for patient with chest pain includes but is not limited to and based on the above HPI, review of systems and physical exam: Pneumonia. unstable angina. angina. Acute coronary syndrome / [place]. Pulmonary embolism. Costochondritis / musculoskeletal. Pleurisy. Pericarditis. Esophageal spasm. Pancreatitis. Cholecystitis. Orders placed to evaluate differential diagnosis based on the above differential, HPI and physical exam EKG: Time 1754. Rate 64. Normal sinus rhythm, nonspecific ST changes/some diffuse ST depression, no ectopy, normal [place] & QRS intervals, This was reviewed and interpreted by myself the ER physician at 1758 Repeat EKG: Time 05/30/1958. Rate 58. Sinus bradycardia, nonspecific ST changes/some diffuse ST depression, no ectopy, normal [place] & QRS intervals, This was reviewed and interpreted by myself the ER physician at 1999. No significant changes from previous EKG. Chest x-ray: No acute process. No infiltrate. No pneumothorax. This was reviewed and interpreted by myself the emergency room physician. I also reviewed the radiology report. Lab Review: Laboratory results were reviewed and interpreted by myself the emergency room physician. No leukocytosis. No anemia. No renal failure. Initial troponin is negative. Assessment of risk: Level of risk: Moderate risk. Hospitalization considerations: Given the level of concern and the fact that Dr. Brown already feels she needs a stress test and she continues to have chest pain I am admitting her for stress test tomorrow and observation overnight. Clinical decision support: Heart score is 6. Definitely needs observation overnight. Reexamination: Patient continues to have some chest pain. I have ordered a nitro and some aspirin. This was reviewed and interpreted by myself the emergency room physician. I also reviewed the radiology report. Consultation: I spoke with Dr. Camarena is on-call for the hospital service who agrees to admission. Assessment and plan: Chest pain ? Aspirin and nitro - Discharged home - Discussed plan with patient. Answered any questions. - Evaluation and treatment of this problem were appropriate in the emergency setting. Lab Data 09/23/25 18:04 09/23/25 18:04 Radiology Impressions Chest X-Ray 09/23/25 17:41 IMPRESSION: No acute cardiopulmonary disease. Laboratory Results WBC 7.61 10^3/uL (3.29-11.43) 09/23/25 18:04 RBC 4.21 10^6/uL (3.85-5.65) 09/23/25 18:04 Hgb 12.30 g/dL (11.27-16.99) 09/23/25 18:04 Hct 37.0 % (36-47) 09/23/25 18:04 MCV 87.9 fl (85-98) 09/23/25 18:04 MCH 29.2 pg (27-33) 09/23/25 18:04 MCHC 33.2 g/dL (30-55) 09/23/25 18:04 RDW 12.5 % (12.1-15.1) 09/23/25 18:04 Plt Count 267 10^3/cmm (157-399) 09/23/25 18:04 MPV 10.3 fL (7.4-10.4) 09/23/25 18:04 Neut % (Auto) 58.0 % 09/23/25 18:04 Lymph % (Auto) 29.4 % 09/23/25 18:04 [place] % (Auto) 9.5 % 09/23/25 18:04 Eos % (Auto) 2.1 % 09/23/25 18:04 Baso % (Auto) 0.7 % 09/23/25 18:04 Neut # (Auto) 4.42 10^3/uL (1.8-7.7) 09/23/25 18:04 Lymph # (Auto) 2.2 10^3/uL (0.8-4.8) 09/23/25 18:04 [place] # (Auto) 0.7 10^3/uL (0.2-0.9) 09/23/25 18:04 Eos # (Auto) 0.2 10^3/uL (0.0-0.8) 09/23/25 18:04 Baso # (Auto) 0.1 10^3/uL (0.0-0.1) 09/23/25 18:04 Nucleated RBC % (auto) 0 % 09/23/25 18:04 Nucleated RBCs # 0.0 /100WBC 09/23/25 18:04 PT 12.80 SECONDS (12.1-14.9) 09/23/25 18:04 INR 0.90 (0.8-1.2) 09/23/25 18:04 APTT 26.1 SECONDS (23.9-36.7) 09/23/25 18:04 Sodium 138 mmol/L (136-145) 09/23/25 18:04 Potassium 3.9 mmol/L (3.5-5.1) 09/23/25 18:04 Chloride 100 mmol/L (98-107) 09/23/25 18:04 Carbon Dioxide 26 mmol/L (22-29) 09/23/25 18:04 Anion Gap 15.9 (5-19) 09/23/25 18:04 BUN 15 mg/dL (8-23) 09/23/25 18:04 Creatinine 0.8 mg/dL (0.5-0.9) 09/23/25 18:04 GFR Calculation 71.8 mL/min (90-130) L 09/23/25 18:04 Glucose 134 mg/dL (65-115) H 09/23/25 18:04 Calculated Osmolality 289 mOsm/kg (285-295) 09/23/25 18:04 Calcium 9.0 mg/dL (8.5-10.5) 09/23/25 18:04 Total Bilirubin 0.3 mg/dL (0.15-1.2) 09/23/25 18:04 AST 20 U/L (0-32) 09/23/25 18:04 ALT 27 U/L (0-33) 09/23/25 18:04 Alkaline Phosphatase 75 U/L (35-105) 09/23/25 18:04 Troponin T Baseline < 6 ng/L (0-10) 09/23/25 18:04 NT-Pro-B Natriuret Pep 385 pg/mL (0-125) H 09/23/25 18:04 Total Protein 7.0 g/dL (6.6-8.7) 09/23/25 18:04 Albumin 4.6 g/dL (3.5-5.2) 09/23/25 18:04 Globulin 2.4 g/dL (1.3-4.6) 09/23/25 18:04 Lipase 41 U/L (13-60) 09/23/25 18:04 All radiology interpretation(s) finalized by discharge Clincial Decision Support The following clinical decision support tools were used to aid in care of the patient HEART Score -> History: Highly Suspicious, EKG: Non-specific Changes, Age: 65 or more yrs, Risk Factors: 1 or 2 Risk Factors, Troponin: Baseline Trop <16 ng/L. Resulting HEART Score: 6. Discharge Plan Discharge Patient Disposition: Placed in Observation Clinical Impression: Chest pain Coding Level of Care Code ED Corporate Auditor for Lucilledemar Fwchris Heart Score HEART Score Components History: Highly Suspicious EKG: Non-specific Changes Age: 65 or more yrs Risk Factors: 1 or 2 Risk Factors Troponin: Baseline Trop <16 ng/L HEART Score RESULT HEART Score: 6
[2025-09-23 18:22] LABS: INR 0.90 (0.8-1.2); Prothrombin Time 12.80 SECONDS (12.1-14.9)
[2025-09-23 18:23] LABS: Partial Thromboplastin Time 26.1 SECONDS (23.9-36.7)
[2025-09-23 18:41] LABS: Troponin(5th) Baseline < 6 ng/L (0-10)
[2025-09-23 18:50] LABS: Alanine Aminotransferase 27 U/L (0-33); Albumin Level 4.6 g/dL (3.5-5.2); Alkaline Phosphatase 75 U/L (35-105); Anion Gap 15.9 (5-19); Aspartate Amino Transferase 20 U/L (0-32); Blood Urea Nitrogen 15 mg/dL (8-23); Calcium 9.0 mg/dL (8.5-10.5); Carbon Dioxide 26 mmol/L (22-29); Chloride 100 mmol/L (98-107); Globulin 2.4 g/dL (1.3-4.6); Glucose 134 mg/dL (65-115); Lipase 41 U/L (13-60); NT Pro B Type Natriuretic Pept 385 pg/mL (0-125); Osmolality Calculated 289 mOsm/kg (285-295); Potassium 3.9 mmol/L (3.5-5.1); Sodium 138 mmol/L (136-145); Total Protein 7.0 g/dL (6.6-8.7)
[2025-09-23 20:16] LABS: Troponin 5 2HR < 6.0 ng/L (0-10); Troponin 5 2HR Delta 0 ABS# (0-10)
--- NOTE | 2025-09-23 20:42 | USCV_ITS ---
Terri Booth Age: 65 Gender: F : 1960 Exam Date: 09/23/2025 20:57 Ordering Phys: Stuart Camarena MD Technologist: SHAYLA Exam Location[place] [facility] Indication: chest pain, SOB, History of SVT, MR, HTN BP: 166 / 76 HR: 57 Rhythm: Sinus bradycardia Technical Quality: Adequate MEASUREMENTS (Male / Female) Normal Values 2D ECHO LV Diastolic Diameter PLAX 3.7 cm 4.2 - 5.9 / 3.9 - 5.3 cm IVS Diastolic Thickness 0.9 cm 0.6 - 1.0 / 0.6 - 0.9 cm IVS Systolic Thickness 1.4 cm LVPW Diastolic Thickness 1.0 cm 0.6 - 1.0 / 0.6 - 0.9 cm LVPW Systolic Thickness 1.3 cm LVOT Diameter 1.9 cm LV Ejection Fraction 2D Teich 63.2 % LV Ejection Fraction MOD 4C 56.0 % LV Ejection Fraction MOD 2C 47.8 % LV Ejection Fraction 2C AL 49.3 % LA Diameter 3.3 cm Aorta at Sinotubular Diameter 2.9 cm IVC Diameter 0.8 cm M-MODE LA Ao Ratio MM 1.3 AV Cusp Separation MM 1.6 cm DOPPLER AV Peak Velocity 101.0 cm/s LVOT Peak Velocity 86.0 cm/s AV Area Cont Eq vti 2.3 cm squared AV Area Cont Eq pk 2.3 cm squared MV Peak Velocity 100.0 cm/s MV Area PHT 3.6 cm squared Mitral E to A Ratio 1.1 TV Peak E Velocity 48.0 cm/s PV Peak Velocity 85.0 cm/s FINDINGS Left Ventricle Normal left ventricular size and systolic function, EF of 55- 60%. No regional wall motion abnormalities. Right Ventricle Normal in size and function Right Atrium Normal in size. Echogenic structure seen likely chiari network. Left Atrium Normal in size IA Septum Grossly normal Mitral Valve Structurally normal mitral valve. Mild mitral regurgitation Aortic Valve Structurally normal aortic valve. No significant stenosis or regurgitation Tricuspid Valve Insufficient TR jet to calculate RVSP Pulmonic Valve Not well visualized Pericardium Normal Aorta Normal in size IVC Appears to be normal CONCLUSIONS LV systolic function is normal with EF of 55-60% Echogenic structure seen in right atrium likely chiari network. Mild mitral regurgitation Compared to prior echocardiogram from 03/2025 no significant changes are seen. Min De La Paz MD (Electronically Signed) Final Date: 27 September 2025 11:07 S
--- NOTE | 2025-09-23 20:44 | P.HP_ITS ---
Providers/Chief Complaint 2 Primary Care Provider: Michael Moreira MD Chief Complaint: CP SOB History of Present Illness Terri Booth is a 65 year old female with a past medical history of paroxysmal SVT, mitral valve regurgitation, hypertension who presents [facility] due to chest pain. Currently patient is alert oriented x 3, following all commands, she reports substernal chest pain, squeezing like pain, no shortness of breath, no diaphoresis, no nausea, no vomiting, does have a family history of CAD, no personal history of CAD no history of smoking no history of drug use, Review of Systems 2 Card: Reports: chest pain Medications/Allergies Home Medications ?Medication ?Instructions ?Recorded ?Confirmed ?Last Taken ?Type flecainide 50 mg tablet 50 mg PO Q12H 02/22/2205/26 Unknown History metoprolol succinate 25 mg 12.5 mg PO DAILY 02/22/22 0 05/26/25 Unknown History tablet,extended release 24 hr valproic acid 250 mg capsule 250 mg PO TID 02/22/22 Unknown History medial canvas cutter machine brace (right) #1 ea 05/26/25 05/26/25 Unknown Rx Allergies Allergy/AdvReac Type Severity Reaction Status Date / Time carbamazepine (From Tegretol) Allergy Mild Rash Verified 04/20/25 14:11 Sulfa (Sulfonamide Allergy Mild Rash Verified 04/20/25 14:11 Antibiotics) PFSH Acute 2 PFSH: Medical History PSVT (paroxysmal supraventricular tachycardia) Social History Smoking and tobacco/nicotine status: never used tobacco/nicotine Second hand smoke exposure: No Alcohol intake: never Substance/Drug Use: never Vitals/I&O/Wt Last Vital Signs Temp 97.4 F L 09/23/25 17:57 Pulse 59 L 09/23/25 20:00 Resp 16 09/23/25 20:00 BP 166/76 09/23/25 20:00 Pulse Ox 100 09/23/25 20:00 O2 Del Method Room Air 09/23/25 18:26 Weight last 48 hrs Weight 54.431 kg Physical Exam 2 Const: COMMON NORMALS: no acute distress and patient oriented x3 Eye: COMMON NORMALS: Equal, round and reactive pupils present and EOMs intact bilaterally Resp: COMMON NORMALS: normal respiratory effort, No retractions, No use of accessory muscles and clear to auscultation bilaterally AUSCULTATION: clear to auscultation bilaterally Cardio: COMMON NORMALS: regular rate, regular rhythm, S1 normal heart sound present and S2 normal heart sound present RATE: regular rate RHYTHM: r egular rhythm HEART SOUNDS: S1 normal heart sound present and S2 normal heart sound present GI: COMMON NORMALS: Normal to inspection, nondistended, normoactive bowel sounds present, Soft to palpation and non-tender Extremity: COMMON NORMALS: no pedal edema Neuro: COMMON NORMALS: patient oriented x3, CN's II-XII intact bilaterally and moves all extremities Psych: COMMON NORMALS: mental status grossly normal Data 09/23/25 18:04 09/23/25 18:04 A&P Assessment and plan 1. Chest pain: Plan: Chest pain - Serial EKGs, start troponins, telemetry monitoring - Cardiac echo - Aspirin, statin, beta-chris - N.p.o. midnight for cardiac stress test tomorrow morning - Full code - Lovenox for DVT prophylaxis PDMP PDMP Reviewed: Not Reviewed Attestations 2 Medical Necessity Statement*: Patient requires hospitalization, for chest pain, inpatient, greater than 2 midnights Diagnoses Chest pain R07.9
--- NOTE | 2025-09-23 21:03 | PC.NURSE ---
PT GIVEN NITRO @2008 - BP 159/66 PT REPORTS PAIN 12/22 DESCRIBES IT SHARP AND BURNING REASSESSED PT CET PAIN @2102. PT REPORTS NO CHEST PAIN, RELIEF WITH NITRO.
--- NOTE | 2025-09-23 21:38 | ECG_ITS ---
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 Interpretive Statements Procedure: A total of 0.4 mg of Lexiscan was infused over 20 seconds. The stress phase was continued for a total of 5 minutes. Sestamibi was injected 20 seconds after the Lexiscan infusion. Findings:The patient's baseline blood pressure was 153/77 mmHg with a heart rate of 59 bpm. After Lexiscan injection the patient's blood pressure mildly decreased to 133/94 mmHg and the heart rate increased to 94 bpm. At the end of recovery the patient's blood pressure was 148/67 mmHg with a heart rate of 72 bpm. The baseline EKG showed sinus bradycardia with a heart rate of [address] depression in the inferolateral leads. There was significant worsening of ST depression after Lexiscan injection which improved by 7 minutes into recovery. Conclusion: 1. EKG response to Lexiscan was consistent with inducible ischemia. 2. No Lexiscan induced chest pain or cardiac arrhythmia. 3. Normal blood pressure and heart rate response. 4. Nuclear myocardial perfusion scan pending; see separate report. Electronically Signed On 09-24-2025 13:47:28 PRODUCT PROMOTER SALES PERSON by Arias Mcnair M.D. [email or web address]
--- NOTE | 2025-09-23 22:21 | PC.NURSE ---
Patent had already taken home doses of Atorvastatin, Metoprolol, and Flecanide. Notified Dr. Camarena. PM doses of those medications not administered here.
[2025-09-23] MEDS: pantoprazole 40 mg SDV IVP (22:54)
[2025-09-23 23:18] LABS: Cholesterol 215 mg/dL (0-200); HDL Cholesterol 65 mg/dL (60-100); Thyroid Stimulating Hormone 3.42 uIU/mL (0.27-4.20); Triglycerides 85 mg/dL (0-150)
--- NOTE | 2025-09-23 23:41 | ECG_ITS ---
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 Measurements Intervals Meherrin Rate: 58 P: 70 IL: 198 QRS: 66 QRSD: 76 T: 63 QT: 398 QTc: 394 Interpretive Statements SINUS BRADYCARDIA MODERATE ST DEPRESSION [0.05+ mV ST DEPRESSION] Compared to ECG 09/23/2025 17:54:51 There is no significant change Electronically Signed On 09-23-2025 20:40:48 DIRECTOR OF THERAPY SERVICES by Arias Mcnair M.D. [email or web address]
[2025-09-23 23:46] LABS: Estmated Average Glucose 100; Hemoglobin A1C 5.1 % (4.0-6.0)
[2025-09-23 23:51] LABS: Troponin 5 6HR < 6.0 ng/L (0-10); Troponin 5 6HR Delta 0 ng/L (0-12)
[2025-09-24] VITALS (7 sets, daily range): BP systolic 92–142; BP diastolic 54–74; PULSE 53–60; RESP 12–20; TEMP 36.1–36.6; O2SAT 93–99; BMI 23.5
[2025-09-24 04:15] LABS: Hematocrit 33.6 % (36-47); Hemoglobin 11.50 g/dL (11.27-16.99); Mean Corpuscular HGB Conc 34.2 g/dL (30-55); Mean Corpuscular Hemoglobin 30.2 pg (27-33); Mean Corpuscular Volume 88.2 fl (85-98); Nucleated Red Blood Cells % 0 %; Platelet Count 235 10^3/cmm (157-399); Red Blood Count 3.81 10^6/uL (3.85-5.65); White Blood Count 5.64 10^3/uL (3.29-11.43)
[2025-09-24 04:38] LABS: Alanine Aminotransferase 21 U/L (0-33); Albumin Level 3.9 g/dL (3.5-5.2); Alkaline Phosphatase 56 U/L (35-105); Anion Gap 17.1 (5-19); Aspartate Amino Transferase 17 U/L (0-32); Blood Urea Nitrogen 13 mg/dL (8-23); Calcium 8.4 mg/dL (8.5-10.5); Carbon Dioxide 23 mmol/L (22-29); Chloride 103 mmol/L (98-107); Globulin 2.0 g/dL (1.3-4.6); Glucose 83 mg/dL (65-115); Magnesium 2.4 mg/dL (1.7-2.3); Osmolality Calculated 287 mOsm/kg (285-295); Potassium 4.1 mmol/L (3.5-5.1); Sodium 139 mmol/L (136-145); Total Protein 5.9 g/dL (6.6-8.7)
[2025-09-24] MEDS: aminophylline 25 mg/mL SDV 20 mL IVP (07:32)
[2025-09-24] MEDS: FLECAINIDE 50 MG TABLET PO (08:44)
--- NOTE | 2025-09-24 10:27 | PC.CHAP ---
Pastoral Care Encounter/Spiritual Assessment Type of Contact [] Declined customer sales service manager visit [] Patient/Family/Request visit [] Outpatient visit [] Follow-up visit [] Physician referral [] Code/Alert [x] Routine visit [] Staff referral [] Actively dying [] Patient sleeping [x] Family support [] [] Out of room [] Palliative care [] [] Receiving care in room [] Pre-surgical visit [] Trauma [] Long length of stay [] ICU visit [] Other: Relational/Emotional Strength [x] Patient feels connected with others/family/visitors/staff [] Distress [] Loneliness/isolation [] Abandonment Spirituality of Patient [x] Person of Arelis [] Attends Jainism of their Arelis [x] Believes in Prayer [] Reads Bible or Episcopal materials [] There are Spiritual issues to be addressed Corrosion Prevention Metal Sprayer Interventions [x] Prayer [x] Active listening [] Non-anxious presence [x] Spiritual/emotional support [] Crisis/trauma care [] Spiritual counseling [] Bereavement support [] Provided bereavement packet [] Provided Bible/devotional materials [] Provided toy/stuffed animal, coloring book to patient or family member [] Provided Communion [] Anointing/[place] [] Salvation [x] Completed spiritual assessment [] Other: Impact on Illness or Injury [] Angry [] Fearful [] Anxious [] Often cries [] Exhaustion [] Unable to work [] Unable to attend orthodoxy [] Unable to walk/stand [] Unable to read [] Unable to drive [] Unable to eat/drink [] Unable to sleep [] Unable to be with family [] Patient intubated [] Other: Summary Time spent with patient 5 min
--- NOTE | 2025-09-24 13:23 | PC.NURSE ---
Patient stated that she only takes Valproic acid BID. Refused 1300 dose.
--- NOTE | 2025-09-24 16:49 | P.DS_ITS ---
Discharge Providers Date of Admission: 09/23/25 19:55 Date of Discharge: September 24, 2025 Attending Provider at Admission: Stuart Camarena MD Attending Provider at Discharge: Vimal Quintero MD Primary Care Provider: Michael Moreira MD Diagnoses at Discharge Discharge Diagnosis 1. Chest pain: Reason for Visit Reason for Visit: CP SOB Brief History: Patient presented with complaint of chest pain and difficulty breathing. She was admitted and monitored closely in primary, and cardiac enzymes were trended. Repeat EKGs were all within normal limits. Hospital Course Hospital Course Other concomitant symptoms were treated empirically. Chronic medical problems well-controlled with her home medications, as adjusted. As at this point, patient remains stable. Lexiscan was negative. She also reports complete cessation of symptoms. She is therefore discharged. See my discharge orders for more details. Physical Exam Narrative: All physical findings essntially within normal limits. Discharge Data Studies Completed and Pending Completed Studies During Hospitalization Category Date Time Status Sestamibi Stress Test Request Routine Exams 09/23/25 21:38 Completed XR chest 1V portable [id number] Stat Exams 09/23/25 17:41 Completed NM woo perf SPECT r/s* [id number] Routine Nuc Med 09/24/25 21:38 Completed Pending at discharge Category Date Time Status Urinalysis Routine Lab 09/23/25 21:38 Ordered CV. echo complete* [id number] Stat Ultrasound 09/23/25 20:42 Taken Radiology Impressions Chest X-Ray 09/23/25 17:41 IMPRESSION: No acute cardiopulmonary disease. Laboratory Results WBC 5.64 10^3/uL (3.29-11.43) 09/24/25 03:33 RBC 3.81 10^6/uL (3.85-5.65) L 09/24/25 03:33 Hgb 11.50 g/dL (11.27-16.99) 09/24/25 03:33 Hct 33.6 % (36-47) L 09/24/25 03:33 MCV 88.2 fl (85-98) 09/24/25 03:33 MCH 30.2 pg (27-33) 09/24/25 03:33 MCHC 34.2 g/dL (30-55) 09/24/25 03:33 RDW 12.5 % (12.1-15.1) 09/24/25 03:33 Plt Count 235 10^3/cmm (157-399) 09/24/25 03:33 MPV 10.5 fL (7.4-10.4) H 09/24/25 03:33 Neut % (Auto) 52.1 % 09/24/25 03:33 Lymph % (Auto) 35.8 % 09/24/25 03:33 [place] % (Auto) 9.2 % 09/24/25 03:33 Eos % (Auto) 2.0 % 09/24/25 03:33 Baso % (Auto) 0.9 % 09/24/25 03:33 Neut # (Auto) 2.94 10^3/uL (1.8-7.7) 09/24/25 03:33 Lymph # (Auto) 2.0 10^3/uL (0.8-4.8) 09/24/25 03:33 [place] # (Auto) 0.5 10^3/uL (0.2-0.9) 09/24/25 03:33 Eos # (Auto) 0.1 10^3/uL (0.0-0.8) 09/24/25 03:33 Baso # (Auto) 0.1 10^3/uL (0.0-0.1) 09/24/25 03:33 Nucleated RBC % (auto) 0 % 09/24/25 03:33 Nucleated RBCs # 0.0 /100WBC 09/24/25 03:33 PT 12.80 SECONDS (12.1-14.9) 09/23/25 18:04 INR 0.90 (0.8-1.2) 09/23/25 18:04 APTT 26.1 SECONDS (23.9-36.7) 09/23/25 18:04 Sodium 139 mmol/L (136-145) 09/24/25 03:33 Potassium 4.1 mmol/L (3.5-5.1) 09/24/25 03:33 Chloride 103 mmol/L (98-107) 09/24/25 03:33 Carbon Dioxide 23 mmol/L (22-29) 09/24/25 03:33 Anion Gap 17.1 (5-19) 09/24/25 03:33 BUN 13 mg/dL (8-23) 09/24/25 03:33 Creatinine 0.6 mg/dL (0.5-0.9) 09/24/25 03:33 GFR Calculation 100.0 mL/min (90-130) 09/24/25 03:33 Glucose 83 mg/dL (65-115) 09/24/25 03:33 Estimat Average Glucose 100 09/23/25 18:04 Hemoglobin A1c 5.1 % (4.0-6.0) 09/23/25 18:04 Calculated Osmolality 287 mOsm/kg (285-295) 09/24/25 03:33 Calcium 8.4 mg/dL (8.5-10.5) L 09/24/25 03:33 Phosphorus 3.4 mg/dL (2.5-4.5) 09/24/25 03:33 Magnesium 2.4 mg/dL (1.7-2.3) H 09/24/25 03:33 Total Bilirubin 0.3 mg/dL (0.15-1.2) 09/24/25 03:33 AST 17 U/L (0-32) 09/24/25 03:33 ALT 21 U/L (0-33) 09/24/25 03:33 Alkaline Phosphatase 56 U/L (35-105) 09/24/25 03:33 Troponin T Baseline < 6 ng/L (0-10) 09/23/25 18:04 Troponin T 120 Minute < 6.0 ng/L (0-10) 09/23/25 19:54 Delta Troponin T 0 ABS# (0-10) 09/23/25 19:54 Troponin T Hi Sens 6Hr < 6.0 ng/L (0-10) 09/23/25 23:20 Troponin T Hi Sens 6Hr Delta 0 ng/L (0-12) 09/23/25 23:20 NT-Pro-B Natriuret Pep 385 pg/mL (0-125) H 09/23/25 18:04 Total Protein 5.9 g/dL (6.6-8.7) L 09/24/25 03:33 Albumin 3.9 g/dL (3.5-5.2) 09/24/25 03:33 Globulin 2.0 g/dL (1.3-4.6) 09/24/25 03:33 Triglycerides 85 mg/dL (0-150) 09/23/25 19:54 Cholesterol 215 mg/dL (0-200) H 09/23/25 19:54 LDL Cholesterol, Calc 133 mg/dL (50-129) H 09/23/25 19:54 HDL Cholesterol 65 mg/dL (60-100) 09/23/25 19:54 LDL/HDL Ratio 2.05 RATIO (0.00-3.22) 09/23/25 19:54 Cholesterol/HDL Ratio 3.31 mg/dL (0.0-4.40) 09/23/25 19:54 Lipase 41 U/L (13-60) 09/23/25 18:04 TSH 3.42 uIU/mL (0.27-4.20) 09/23/25 19:54 Vitals Last Vital Signs Temp 97.8 F 09/24/25 08:00 Pulse 58 L 09/24/25 12:00 Resp 20 H 09/24/25 12:00 BP 127/54 09/24/25 12:00 Pulse Ox 93 09/24/25 12:00 O2 Del Method Room Air 09/24/25 04:00 Discharge Plan Discharge Patient Disposition: Home Condition: Stable Prescriptions: New aspirin 81 mg Tablet,Delayed Release (Dr/Ec) 81 mg PO DAILY Qty: 100 2RF Continued valproic acid 250 mg capsule 250 mg PO TID flecainide 50 mg tablet 50 mg PO Q12H metoprolol succinate 25 mg tablet extended release 24 hr 12.5 mg PO DAILY (DME) 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) See Rx Instructions .Route .MEDSUPPLY Qty: 1 0RF Rx Instructions: As directed atorvastatin 20 mg tablet 20 mg PO DAILY alendronate [Fosamax] 70 mg tablet 70 mg PO Q7D famotidine [Pepcid] 20 mg Tablet 20 mg PO DAILY Discharge Order = DC NOW: Discharge Order (Routine); Ordered 09/24/25 Ordered By: Vimal Quintero Referrals: Michael Moreira MD [Primary Care Provider, Family Practice] - 10/01/25 11:15 am Discharge Diet: Usual diet Discharge Activity: Resume usual activity and Increase activity as tolerated Patient Instructions: Aspirin (By mouth), Chest Pain Stoplight, Opioid Safety, Patient Portal & Silvia Instructions Activity Restrictions/Additional Instructions: Follow up with your primary care provider as needed. 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 Discharge Attestations Time Spent in Discharge Care*: less than 30 min Quality Metrics Clinical Quality Measures [ No reported AMI, CVA or VTE this stay] Coding Level of Care Code Acute Code for Chg Fwd Diagnoses Chest pain R07.9
--- NOTE | 2025-09-24 21:38 | NMCV_ITS ---
NM woo perf SPECT r/s* [id number] Terri Booth Age: 65 Gender: F : 1960 Exam Date: 09/24/2025 06:41 Ordering Phys: Stuart Camarena MD Technologist: LENA Nathan Exam Location: [facility] Indications: cp STRESS TEST Please [facility] stress [facility] for full findings IMAGE PROTOCOL Rest/Stress 1 Lexiscan Day Radiopharmaceutical Dose (mCi) Administration Site Administered by Rest: Tc-99m 10.5 IV LENA Humphrey Sestamibi Stress:Tc-99m 32.5 IV LENA Humphrey Sestamibi Rest: 24-Sep-2025 60 Discovery 630 Stress: 24-Sep-2025 30 Discovery 630 0.4mg Lexiscan. Images obtained in supine and prone position. SPECT RESULTS Technical Quality: Good Raw Data Analysis: Normal Image Corrections: No attenuation or motion correction applied Summed Stress Score: 0 Summed Rest Score: 0 Summed Difference Score: 0 PERFUSION FINDINGS SPECT images demonstrate homogeneous tracer distribution throughout the myocardium at rest and stress. TID ratio was 1.04 which is normal. FUNCTIONAL RESULTS (calculated via Gated SPECT) Stress Image LV EF (%): 88 Stress EDV (mL):43 TID: 1.04 Stress ESV (mL):5 FUNCTIONAL FINDINGS: There is normal left ventricular systolic function. IMPRESSIONS Myocardial perfusion imaging is normal. Normal left ventricular function, EF >75%. Arias Mcnair MD, FACC (Electronically Signed) Final Date: 24 September 2025 13:29 Amended: 24 September 2025 13:41 C
== END 2025-09-24 17:39 | disposition home or self-care (01) ==
LOC: ER 20:10 → CSU 20:46
PROVIDERS: Admitting Provider Family Medicine; Emergency Provider Emergency Medicine; PCP Family Medicine; Visit Provider Family Medicine
DX: R07.9 Chest pain, unspecified (principal); R06.02 Shortness of breath; I47.10 Supraventricular tachycardia, unspecified; I34.0 Nonrheumatic mitral (valve) insufficiency; I10 Essential (primary) hypertension; Z82.49 Family history of ischemic heart disease and other diseases of the circulatory system
CPT/HCPCS: 36415; 71045; 78452; 80053; 80061; 83036; 83690; 83735; 83880; 84100; 84443; 84484; 85025; 85610; 85730; 93005; 93017; 93306; 94664; 96372; 96375; A9500; G0378; J0280; J1650; J2470; J2785; J9999

== ENCOUNTER → 2025-10-14 07:46 | Outpatient (BNVA) | payer MEDICARE, SELFPAY | PROVIDERS: PCP Family Medicine; Visit Provider Nurse Practitioner Family | DX: R07.9 Chest pain, unspecified (principal); I47.10 Supraventricular tachycardia, unspecified; I10 Essential (primary) hypertension; E78.5 Hyperlipidemia, unspecified; I34.0 Nonrheumatic mitral (valve) insufficiency | CPT/HCPCS: 99214 ==